=== PATIENT | female | born 1935 | race Caucasian/White ===

== ENCOUNTER 2018-12-04 15:15 | Inpatient (IN) | payer MEDICARE, OTHER, MEDICAID ==
[2018-12-04 16:12] LABS: CHLORIDE,CL 105 mEq/L (98-106); SODIUM,NA 139 mEq/L (136-145)
[2018-12-04] MEDS ORDERED: Sodium Chloride 0.9% 10 ML Syringe FLUSH PRN (18:49)
[2018-12-04] MEDS ORDERED: Acetaminophen 500 MG Tab PO PRN (18:49)
[2018-12-04] MEDS ORDERED: Ondansetron 4 MG Tab.DIS PO PRN (18:49)
--- NOTE | 2018-12-04 18:55 | EDM.PDOC ---
ED HPI GENERAL MEDICAL PROBLEM - General Chief Complaint: General Stated Complaint: fall on ice Time Seen by Provider: 12/04/18 15:35 Source of Information: Reports: Patient History Limitations: Reports: No Limitations. Denies: Altered Mental Status, Physical Impairment, Respiratory Distress, Uncooperative - History of Present Illness INITIAL COMMENTS - FREE TEXT/NARRATIVE: Josiane is an 83 yo female who is brought into the ED via [facility] after having a controlled fall with the assistance of her grandson. EMS was called secondary to not being able to get her up. She admits over the last couple of weeks she has been getting weaker. Her grandson was able to assist her to the ground without any new onset of pain or injury. She does complain of chronic back pain. She was scheduled this afternoon to come into the clinic for weakness and chronic back pain. She admits lately she hasn't been able to stand for more than 5 minutes. She admits she hasn't been exercising and her diet hasn 't been that great. She states she is always hungry and wants to eat. States after she eats she wants to eat again in 15 minutes. Lower Back Pain Score (Numeric/FACES): 7 - Related Data Allergies Allergy/AdvReac Type Severity Reaction Status Date / Time No Known Allergies Allergy Verified 12/04/18 15:42 Home Meds: Home Meds Aspirin [Adult Low Dose Aspirin EC] 81 mg PO DAILY 05/11/15 [History] Furosemide [Lasix] 40 mg PO DAILY 05/11/15 [History] Levothyroxine 125 mcg PO DAILY 05/11/15 [History] Quinapril [Accupril] 20 mg PO DAILY 05/11/15 [History] Sertraline [Zoloft] 50 mg PO BID 05/11/15 [History] Potassium Chloride 20 meq PO BID 12/12/16 [History] Acetaminophen [Acetaminophen Extra Strength] 500 mg PO BID PRN 12/04/18 [History ] Insuln Asp Prot/Insulin Aspart [NovoLOG Mix 70-30] 15 units SUBCUT WITHDINNER [History] Insuln Asp Prot/Insulin Aspart [NovoLOG Mix 70-30] 20 units SUBCUT QAM 12/04/18 [History] Magnesium Oxide [Magnesium] 500 mg PO BID 12/04/18 [History] Metoprolol Succinate 50 mg PO DAILY 12/04/18 [History] Nystatin 1 applic TOP BID 12/04/18 [History] Past Medical History Cardiovascular History: Reports: Heart Murmur, Hypertension, Other (See Below) Other Cardiovascular History: A FLUTTER Gastrointestinal History: Reports: GERD, Hemorrhoids, PUD Endocrine/Metabolic History: Reports: Diabetes, Type II, Hypoparathyroidism - Past Surgical History HEENT Surgical History: Reports: Cataract Surgery GI Surgical History: Reports: Appendectomy, Bariatric Procedure, Hernia Repair/ Other Musculoskeletal Surgical History: Reports: Hip Replacement, Knee Replacement Social & Family History - Family History Family Medical History: Noncontributory - Tobacco Use Smoking Status *Q: Never Smoker - Caffeine Use Caffeine Use: Reports: Coffee - Recreational Drug Use Recreational Drug Use: No ED ROS GENERAL - Review of Systems Review Of Systems: See Below Constitutional: Reports: Weakness. Denies: Fever, Chills, Decreased Appetite HEENT: Reports: No Symptoms Respiratory: Reports: No Symptoms Cardiovascular: Reports: No Symptoms Endocrine: Reports: No Symptoms GI/Abdominal: Reports: No Symptoms : Reports: No Symptoms Neurological: Reports: Difficulty Walking, Weakness Psychiatric: Reports: No Symptoms ED EXAM, GENERAL - Physical Exam Exam: See Below Exam Limited By: No Limitations General Appearance: Alert, WD/WN, No Apparent Distress Eye Exam: Bilateral Eye: EOMI, Normal Fundi, Normal Inspection Ears: Normal External Exam, Normal Canal, Hearing Grossly Normal, Normal TMs Nose: Normal Inspection, Normal Mucosa, No Blood Throat/Mouth: Normal Inspection, Normal Lips, Normal Teeth, Normal Gums, Normal Oropharynx, Normal Voice, No Airway Compromise Head: Atraumatic, Normocephalic Neck: Normal Inspection, Supple Respiratory/Chest: No Respiratory Distress, Lungs Clear, Normal Breath Sounds, No Accessory Muscle Use Cardiovascular: Normal Peripheral Pulses, Regular Rate, Rhythm, No Edema, No Murmur GI/Abdominal: Normal Bowel Sounds, Soft, Non-Tender, No Mass, Other (morbid obesity) Extremities: Normal Inspection, Normal Range of Motion Neurological: Alert, Oriented, Normal Cognition, No Motor/Sensory Deficits Psychiatric: Normal Affect, Normal Mood Skin Exam: Warm, Dry, Intact, Normal Color, No Rash Course - Vital Signs Last Recorded V/S: Last Vital Signs Temp 97.7 F 12/04/18 17:20 Pulse 76 12/04/18 17:20 Resp 20 12/04/18 17:20 BP 139/62 12/04/18 17:20 Pulse Ox 99 12/04/18 17:20 - Orders/Labs/Meds Orders: Active Orders 24 hr Category Date Time Status Chest 2V [CR] Stat Exams 12/04/18 15:43 Taken EKG 12 Lead [EK] Routine Ther 12/04/18 15:43 Ordered Labs: Laboratory Tests 12/04/18 12/04/18 12/04/18 Range/Units 15:50 15:50 16:11 WBC 6.8 (5.0-10.0) 10^3/uL RBC 4.64 (4.00-5.50) 10^6/uL Hgb 15.0 (12.0-16.0) g/dL Hct 45.5 (37.0-47.0) % MCV 98.1 H (82.0-94.0) fL MCH 32.3 H (27.0-32.0) pg MCHC 33.0 (33.0-38.0) g/dL RDW Coeff of [place] 13.3 (11.0-15.0) % Plt Count 134 L (150-400) 10^3/uL Neut % (Auto) 61.9 (35-85) % Lymph % (Auto) 23.6 (10-55) % [place] % (Auto) 10.9 (0-16) % Eos % (Auto) 2.9 (0-5) % Baso % (Auto) 0.7 (0-3) % Neut # (Auto) 4.19 (1.80-7.00) 10^3/uL Lymph # (Auto) 1.60 (1.00-4.80) 10^3/uL [place] # (Auto) 0.74 (0.00-0.80) 10^3/uL Eos # (Auto) 0.20 (0.00-0.45) 10^3/uL Baso # (Auto) 0.05 10^3/uL Sodium 139 (136-145) mEq/L Potassium 4.4 (3.5-5.0) mEq/L Chloride 105 (98-106) mEq/L Carbon Dioxide 27 (21-32) mmol/L BUN 29 H (7-18) mg/dL Creatinine 1.7 H (0.6-1.0) mg/dL Est Cr Clr Drug Dosing 23.06 mL/min Estimated GFR (MDRD) 29 L (>=60) mL/min Glucose 111 H (75-99) mg/dL Calcium 9.3 (8.4-10.1) mg/dL Total Bilirubin 0.6 (0.0-1.0) mg/dL AST 19 (15-37) U/L ALT 19 (12-78) U/L Alkaline Phosphatase 112 (46-116) U/L Creatine Kinase 45 (21-215) U/L Troponin I < 0.017 (0.00-0.06) ng/mL C-Reactive Protein 1.1 H (0.2-0.8) mg/dL Total Protein 7.1 (6.4-8.2) g/dL Albumin 3.1 L (3.4-5.0) g/dL Urine Color Straw (YELLOW) Urine Appearance Slightly cloudy (CLEAR) Urine pH 5.0 (4.5-8.0) Ur Specific [place] 1.015 (1.003-1.020) Urine Protein Negative (NEGATIVE) mg/dL Urine Glucose (UA) Negative (NEGATIVE) mg/dL Urine Ketones Negative (NEGATIVE) mg/dL Urine Occult Blood Negative (NEGATIVE) Urine Nitrite Negative (NEGATIVE) Urine Bilirubin Negative (NEGATIVE) Urine Urobilinogen 0.2 (0.2-1.0) EU/dL Ur Leukocyte Esterase Negative (NEGATIVE) Urine RBC Not seen (0-5) /HPF Urine WBC Not seen (0-5) /HPF Ur Epithelial Cells Few H (NOT SEEN) /HPF Hyaline Casts Few H (NOT SEEN) /LPF Departure - Departure Time of Disposition: 18:49 Disposition: Refer to Observation Clinical Impression: Weakness generalized, Physical deconditioning - Discharge Information - Problem List & Annotations (1) Physical deconditioning SNOMED Code(s): 07324245070784 Code(s): R53.81 - OTHER MALAISE Status: Acute Current Visit: Yes (2) Weakness generalized SNOMED Code(s): 58470269 Code(s): R53.1 - WEAKNESS Status: Acute Current Visit: Yes - My Orders Last 24 Hours: My Active Orders 12/04/18 15:43 Chest 2V [CR] Stat EKG 12 Lead [EK] Routine - Assessment/Plan Admission H&P: Please use this note as an admission H&P Last 24 Hours: My Active Orders 12/04/18 15:43 Chest 2V [CR] Stat EKG 12 Lead [EK] Routine Plan: D/t recurrent falls in the last few weeks, will admit to observation under Dr. Martinez's care. Will have PT and career consultant work with Josiane while in ED. She verbalized understanding. Dr. Martinez consulted and agreed with admission.
[2018-12-04] MEDS: Insulin NPH/Insulin Regular,Human 70-30 100 Units/ML 10 ML Vial SUBCUT SCH (19:21)
[2018-12-04] MEDS: Enoxaparin 30 MG/0.3 ML Syringe SUBCUT SCH (19:43)
[2018-12-05] MEDS ORDERED: Aspirin 81 MG Tab.EC PO SCH (08:00)
[2018-12-05] MEDS: Insulin NPH/Insulin Regular,Human 70-30 100 Units/ML 10 ML Vial SUBCUT SCH ×2 (08:23→18:12)
[2018-12-05] MEDS ORDERED: QUINAPRIL 20 MG PO SCH (09:30)
[2018-12-05] MEDS: SERTRALINE 100 MG PO SCH ×4 (10:31→19:23)
[2018-12-05] MEDS: POTASSIUM CHLORIDE 20 MEQ PO SCH ×3 (10:32→19:23)
[2018-12-05] MEDS: Nystatin Topical Powder 15 GM Bottle TOP SCH ×3 (10:32→19:24)
[2018-12-05] MEDS: Levothyroxine 125 MCG Tab PO SCH (11:31)
[2018-12-05] MEDS: Furosemide 40 MG Tab PO SCH (11:31)
[2018-12-05] MEDS: METOPROLOL SUCCINATE 50 MG PO SCH (11:32)
--- NOTE | 2018-12-05 12:41 | PCM.PN ---
- General Info Date of Service: 12/05/18 Admission Dx/Problem (Free Text): Weakness with recent fall Functional Status: Reports: Pain Controlled, Tolerating Diet, Ambulating ( ambulating with walker but unsteady) - Review of Systems General: Reports: Weakness, Fatigue HEENT: Reports: No Symptoms Pulmonary: Reports: Shortness of Breath. Denies: Cough Cardiovascular: Denies: Chest Pain, Lightheadedness Gastrointestinal: Denies: Abdominal Pain, Nausea, Vomiting Genitourinary: Reports: No Symptoms Musculoskeletal: Reports: Leg Pain, Joint Pain Skin: Reports: No Symptoms Neurological: Reports: Weakness - Patient Data Vitals - Most Recent: Last Vital Signs Temp 99.1 F 12/05/18 11:33 Pulse 74 12/05/18 11:33 Resp 20 12/05/18 11:33 BP 132/73 12/05/18 11:33 Pulse Ox 98 12/05/18 11:33 Weight - Most Recent: 289 lb 4.8 oz Lab Results Last 24 Hours: Laboratory Results - last 24 hr 12/04/18 12/04/18 12/04/18 Range/Units 15:50 15:50 16:11 WBC 6.8 (5.0-10.0) 10^3/uL RBC 4.64 (4.00-5.50) 10^6/uL Hgb 15.0 (12.0-16.0) g/dL Hct 45.5 (37.0-47.0) % MCV 98.1 H (82.0-94.0) fL MCH 32.3 H (27.0-32.0) pg MCHC 33.0 (33.0-38.0) g/dL RDW Coeff of Ronan 13.3 (11.0-15.0) % Plt Count 134 L (150-400) 10^3/uL Neut % (Auto) 61.9 (35-85) % Lymph % (Auto) 23.6 (10-55) % [place] % (Auto) 10.9 (0-16) % Eos % (Auto) 2.9 (0-5) % Baso % (Auto) 0.7 (0-3) % Neut # (Auto) 4.19 (1.80-7.00) 10^3/uL Lymph # (Auto) 1.60 (1.00-4.80) 10^3/uL [place] # (Auto) 0.74 (0.00-0.80) 10^3/uL Eos # (Auto) 0.20 (0.00-0.45) 10^3/uL Baso # (Auto) 0.05 10^3/uL Sodium 139 (136-145) mEq/L Potassium 4.4 (3.5-5.0) mEq/L Chloride 105 (98-106) mEq/L Carbon Dioxide 27 (21-32) mmol/L BUN 29 H (7-18) mg/dL Creatinine 1.7 H (0.6-1.0) mg/dL Est Cr Clr Drug Dosing 23.06 mL/min Estimated GFR (MDRD) 29 L (>=60) mL/min Glucose 111 H (75-99) mg/dL POC Glucose (75-105) mg/dl Calcium 9.3 (8.4-10.1) mg/dL Total Bilirubin 0.6 (0.0-1.0) mg/dL AST 19 (15-37) U/L ALT 19 (12-78) U/L Alkaline Phosphatase 112 (46-116) U/L Creatine Kinase 45 (21-215) U/L Troponin I < 0.017 (0.00-0.06) ng/mL C-Reactive Protein 1.1 H (0.2-0.8) mg/dL Total Protein 7.1 (6.4-8.2) g/dL Albumin 3.1 L (3.4-5.0) g/dL Urine Color Straw (YELLOW) Urine Appearance Slightly cloudy (CLEAR) Urine pH 5.0 (4.5-8.0) Ur Specific [place] 1.015 (1.003-1.020) Urine Protein Negative (NEGATIVE) mg/dL Urine Glucose (UA) Negative (NEGATIVE) mg/dL Urine Ketones Negative (NEGATIVE) mg/dL Urine Occult Blood Negative (NEGATIVE) Urine Nitrite Negative (NEGATIVE) Urine Bilirubin Negative (NEGATIVE) Urine Urobilinogen 0.2 (0.2-1.0) EU/dL Ur Leukocyte Esterase Negative (NEGATIVE) Urine RBC Not seen (0-5) /HPF Urine WBC Not seen (0-5) /HPF Ur Epithelial Cells Few H (NOT SEEN) /HPF Hyaline Casts Few H (NOT SEEN) /LPF 12/04/18 12/04/18 12/05/18 Range/Units 17:29 20:17 07:58 WBC (5.0-10.0) 10^3/uL RBC (4.00-5.50) 10^6/uL Hgb (12.0-16.0) g/dL Hct (37.0-47.0) % MCV (82.0-94.0) fL MCH (27.0-32.0) pg MCHC (33.0-38.0) g/dL RDW Coeff of [place]an (11.0-15.0) % Plt Count (150-400) 10^3/uL Neut % (Auto) (35-85) % Lymph % (Auto) (10-55) % [place] % (Auto) (0-16) % Eos % (Auto) (0-5) % Baso % (Auto) (0-3) % Neut # (Auto) (1.80-7.00) 10^3/uL Lymph # (Auto) (1.00-4.80) 10^3/uL [place] # (Auto) (0.00-0.80) 10^3/uL Eos # (Auto) (0.00-0.45) 10^3/uL Baso # (Auto) 10^3/uL Sodium (136-145) mEq/L Potassium (3.5-5.0) mEq/L Chloride (98-106) mEq/L Carbon Dioxide (21-32) mmol/L BUN (7-18) mg/dL Creatinine (0.6-1.0) mg/dL Est Cr Clr Drug Dosing mL/min Estimated GFR (MDRD) (>=60) mL/min Glucose (75-99) mg/dL POC Glucose 99 160 H 88 (75-105) mg/dl Calcium (8.4-10.1) mg/dL Total Bilirubin (0.0-1.0) mg/dL AST (15-37) U/L ALT (12-78) U/L Alkaline Phosphatase (46-116) U/L Creatine Kinase (21-215) U/L Troponin I (0.00-0.06) ng/mL C-Reactive Protein (0.2-0.8) mg/dL Total Protein (6.4-8.2) g/dL Albumin (3.4-5.0) g/dL Urine Color (YELLOW) Urine Appearance (CLEAR) Urine pH (4.5-8.0) Ur Specific [place] (1.003-1.020) Urine Protein (NEGATIVE) mg/dL Urine Glucose (UA) (NEGATIVE) mg/dL Urine Ketones (NEGATIVE) mg/dL Urine Occult Blood (NEGATIVE) Urine Nitrite (NEGATIVE) Urine Bilirubin (NEGATIVE) Urine Urobilinogen (0.2-1.0) EU/dL Ur Leukocyte Esterase (NEGATIVE) Urine RBC (0-5) /HPF Urine WBC (0-5) /HPF Ur Epithelial Cells (NOT SEEN) /HPF Hyaline Casts (NOT SEEN) /LPF Med Orders - Current: Current Medications Acetaminophen (Tylenol Extra Strength) 500 mg PO BID PRN PRN Reason: Pain/Fever Aspirin (Halfprin) 81 mg PO BEDTIME [facility] Enoxaparin Sodium (Lovenox) 30 mg SUBCUT Q24H [facility] Last Admin: 12/04/18 19:43 Dose: 30 mg Furosemide (Lasix) 40 mg PO DAILY [facility] Last Admin: 12/05/18 11:31 Dose: 40 mg Insulin Human Isoph/Insulin Regular (Humulin 70-30) 15 units SUBCUT WITHDINNER [facility] Last Admin: 12/04/18 19:21 Dose: 15 units Insulin Human Isoph/Insulin Regular (Humulin 70-30) 20 units SUBCUT QAM [facility] Last Admin: 12/05/18 08:23 Dose: 20 units Levothyroxine Sodium (Levothyroxine) 125 mcg PO DAILY [facility] Last Admin: 12/05/18 11:31 Dose: 125 mcg Magnesium Oxide (Magnesium Oxide) 500 mg PO BID [facility] Last Admin: 12/05/18 08:29 Dose: 500 mg Ptom Metoprolol Succinate [ Metoprolol Succinate ] 50 Mg 50 mg PO DAILY [facility] Last Admin: 12/05/18 11:32 Dose: 50 mg Ptom Potassium Chloride [Potassium Chloride] 20 Meq 20 meq PO BID [facility] Last Admin: 12/05/18 11:31 Dose: 20 meq Ptom Sertraline ([Zoloft] 100 Mg Tab) 50 mg PO BID [facility] Last Admin: 12/05/18 11:32 Dose: 50 mg Ptom Quinapril [ (Accupril] 20 Mg Tab) 20 mg PO BEDTIME [facility] Nystatin (Nystop) 0 gm TOP BID [facility] Last Admin: 12/05/18 10:40 Dose: 1 applic Ondansetron HCl (Zofran Odt) 4 mg PO Q4H PRN PRN Reason: nausea, able to take PO Sodium Chloride (Saline Flush) 10 ml FLUSH ASDIRECTED PRN PRN Reason: Keep Vein Open Discontinued Medications Aspirin (Halfprin) 81 mg PO DAILY [facility] Last Admin: 12/05/18 08:29 Dose: 81 mg Ptom Quinapril [ (Accupril] 20 Mg Tab) 20 mg PO DAILY [facility] Last Admin: 12/05/18 11:33 Dose: 20 mg - Exam General: Alert, Oriented HEENT: Mucous Membr. Moist/[place] Neck: Supple Lungs: Clear to Auscultation, Normal Respiratory Effort Cardiovascular: Regular Rate, Regular Rhythm GI/Abdominal Exam: Normal Bowel Sounds, Soft, Non-Tender Extremities: Normal Inspection, No Pedal Edema Skin: Warm, Dry Neurological: No New Focal Deficit - Problem List & Annotations (1) Weakness generalized SNOMED Code(s): 18702456 Code(s): R53.1 - WEAKNESS Status: Acute Priority: High Current Visit: Yes - Problem List Review Problem List Initiated/Reviewed/Updated: Yes - Assessment Assessment:: Weakness with recent falls - Plan Plan:: Patient still feeling weak and unsteady at times. Is only ambulating short distances with walker and standby assist. Complains of left knee pain with walking. Denies any shortness of breath, chest pain, abdominal pain. Labs on admit all normal. PT did evaluate this am and does not feel patient is stable enough with ambulation to go home safely. Will continue with physical therapy, possibly discharge home tomorrow.
[2018-12-05] MEDS: Enoxaparin 30 MG/0.3 ML Syringe SUBCUT SCH (19:20)
[2018-12-06] MEDS: Nystatin Topical Powder 15 GM Bottle TOP SCH ×2 (08:00→19:30)
--- NOTE | 2018-12-06 08:08 | PN ---
DATE: 12/06/2018 S: Josiane is an 83-year-old female who was initially admitted on 12/04/2018, secondary to a fall and generalized weakness. She has had difficulty ambulating secondary to weakness. She did have a controlled fall. However, due to unable to get up, they did end up calling ambulance, which prompted her to be brought into the emergency room. She states that she is feeling a little bit stronger today. She has been trying to ambulate with assistance. She has been working with Physical Therapy. However, Physical Therapy yesterday did not feel that she was ready to go home at this time, as they did not feel she was stable enough with ambulation at home. She denies any new onset of any symptoms. She states that she has not had any concerns per se. O: VITAL SIGNS: Blood pressure is 121/64, O2 is 96% on room air, respiratory rate of 20, and temp 96. GENERAL: A pleasant cooperative female, does not really appear to be in any acute distress and not acutely ill. She is just sitting comfortably in a recliner. HEENT: Grossly unremarkable. LUNGS: Does have a little bit of expiratory wheeze; however, chest x- ray completed on 12/04/2018, did show no acute cardiopulmonary processes. Otherwise, respirations are nonlabored. No respiratory distress noted. CARDIAC: Regular rate and regular rhythm. No murmurs are noted. ABDOMEN: Soft. Bowel sounds present and normoactive. No organomegaly. No guarding or rigidity. ASSESSMENT: 1. GENERALIZED WEAKNESS. 2. VULNERABLE ADULT, SECONDARY TO FALL. P: I did discuss with Josiane, due to inclement weather, we are unable to discharge her at this point in time. Physical Therapy will not be in today, due to the weather, to work with her. We will keep her one more night, hopefully, with a discharge plan for tomorrow, of which Josiane does verbalize understanding. We are going to have nursing staff assist her with ambulation today. Josiane was in complete agreement. JARROD/CHARISMA /[id number] BRETT
[2018-12-06] MEDS: Insulin NPH/Insulin Regular,Human 70-30 100 Units/ML 10 ML Vial SUBCUT SCH ×2 (08:24→18:26)
[2018-12-06] MEDS: Levothyroxine 125 MCG Tab PO SCH (08:26)
[2018-12-06] MEDS: Furosemide 40 MG Tab PO SCH (08:26)
[2018-12-06] MEDS: POTASSIUM CHLORIDE 20 MEQ PO SCH ×2 (08:29→19:30)
[2018-12-06] MEDS: SERTRALINE 100 MG PO SCH ×2 (08:29→19:31)
[2018-12-06] MEDS: METOPROLOL SUCCINATE 50 MG PO SCH (08:29)
[2018-12-06] MEDS: Enoxaparin 30 MG/0.3 ML Syringe SUBCUT SCH (19:28)
[2018-12-06] MEDS ORDERED: Aspirin 81 MG Tab.EC PO SCH (20:00)
[2018-12-06] MEDS ORDERED: QUINAPRIL 20 MG PO SCH (20:00)
[2018-12-07] MEDS: Furosemide 40 MG Tab PO SCH (08:45)
[2018-12-07] MEDS ORDERED: Sertraline 25 MG Tab PO SCH (08:45)
[2018-12-07] MEDS ORDERED: Potassium Chloride 10 MEQ Tab.ER PO SCH (08:45)
[2018-12-07] MEDS ORDERED: Metoprolol Succinate 25 MG Tab.ER PO SCH (08:45)
[2018-12-07] MEDS: Levothyroxine 125 MCG Tab PO SCH (08:46)
[2018-12-07] MEDS: Insulin NPH/Insulin Regular,Human 70-30 100 Units/ML 10 ML Vial SUBCUT SCH (08:46)
[2018-12-07] MEDS: Nystatin Topical Powder 15 GM Bottle TOP SCH (08:52)
[2018-12-07] MEDS: POTASSIUM CHLORIDE 20 MEQ PO SCH (11:19)
[2018-12-07] MEDS: METOPROLOL SUCCINATE 50 MG PO SCH (11:19)
[2018-12-07] MEDS: SERTRALINE 100 MG PO SCH (11:19)
[2018-12-07 14:05] VITALS: BP 130/63
[2018-12-07] MEDS ORDERED: Lisinopril 10 MG Tab PO SCH (20:00)
--- NOTE | 2018-12-07 21:41 | PCM.DCSUM1 ---
Discharge Summary - Hospital Course Free Text/Narrative:: Patient presented to ER with complaints of increased weakness and a fall. Had been leaving her apartment to go to the clinic for a scheduled appointment due to increased weakness and back pain. Had a controlled fall outside her apartment, was assisted down by her grandson but then was unable to get her up so EMS was called. She states she had increasing weakness over the last few weeks. Had many near falls, was able to either catch herself with her walker or lower herself to a chair. Labs in the ER essentially all stable. Admitted for physical therapy due to concerns of ability to care for herself at home in current state. Diagnosis: Stroke: No Modified [place] Scale: No Symptoms at All Modified [place] Scale Score: 0 - Discharge Data Discharge Date: 12/07/18 Discharge Disposition: Home, Self-Care 01 Condition: Fair - Discharge Diagnosis/Problem(s) (1) Weakness generalized SNOMED Code(s): 73380642 ICD Code: R53.1 - WEAKNESS Status: Acute Priority: High - Patient Summary/Data Complications: none Consults: Consultations 12/04/18 18:49 Consult to [employer] [CONS] Routine PT Evaluation and Treatment [CONS] Routine Hospital Course: Patient showing improvement. Has been ambulating with staff and physical therapy, using walker. Labs all stable. Blood sugars stable, running 100-170. Vital signs stable. Patient does feel her strength has improved and can manage at home with grandson's assistance. - Patient Instructions Diet: Diabetic Diet Activity: As Tolerated - Discharge Plan *PRESCRIPTION DRUG MONITORING PROGRAM REVIEWED*: No *COPY OF PRESCRIPTION DRUG MONITORING REPORT IN PATIENT GAGE: No Home Medications: Home Meds Aspirin [Adult Low Dose Aspirin EC] 81 mg PO DAILY 05/11/15 [History] Furosemide [Lasix] 40 mg PO DAILY 05/11/15 [History] Levothyroxine 125 mcg PO DAILY 05/11/15 [History] Quinapril [Accupril] 20 mg PO DAILY 05/11/15 [History] Sertraline [Zoloft] 50 mg PO BID 05/11/15 [History] Potassium Chloride 20 meq PO BID 12/12/16 [History] Acetaminophen [Acetaminophen Extra Strength] 500 mg PO BID PRN 12/04/18 [History ] Insuln Asp Prot/Insulin Aspart [NovoLOG Mix 70-30] 15 units SUBCUT WITHDINNER [History] Insuln Asp Prot/Insulin Aspart [NovoLOG Mix 70-30] 20 units SUBCUT QAM 12/04/18 [History] Magnesium Oxide [Magnesium] 500 mg PO BID 12/04/18 [History] Metoprolol Succinate 50 mg PO DAILY 12/04/18 [History] Nystatin 1 applic TOP BID 12/04/18 [History] Patient Handouts: Weakness Forms: ED Department Discharge Referrals: Jose Caceres PA-C [Emergency Provider] - (Follow up with Femi Caceres in one week ) - Discharge Summary/Plan Comment DC Time >30 min.: No - General Info Date of Service: 12/07/18 Admission Dx/Problem (Free Text: Weakness with recent fall Functional Status: Reports: Pain Controlled, Tolerating Diet, Ambulating - Review of Systems General: Reports: Weakness HEENT: Reports: No Symptoms Pulmonary: Denies: Shortness of Breath, Cough Cardiovascular: Denies: Chest Pain, Edema, Lightheadedness Gastrointestinal: Denies: Abdominal Pain, Nausea, Vomiting Genitourinary: Reports: No Symptoms Musculoskeletal: Reports: No Symptoms Skin: Reports: No Symptoms Neurological: Reports: No Symptoms - Patient Data Vitals - Most Recent: Last Vital Signs Temp 99.2 F 12/07/18 12:00 Pulse 78 12/07/18 12:00 Resp 16 12/07/18 12:00 BP 130/63 12/07/18 12:00 Pulse Ox 99 12/07/18 12:00 Weight - Most Recent: 289 lb 4.8 oz Lab Results - Last 24 hrs: Laboratory Results - last 24 hr 12/07/18 12/07/18 Range/Units 07:59 11:48 POC Glucose 134 H 107 H (75-105) mg/dl Med Orders - Current: Current Medications Discontinued Medications Acetaminophen (Tylenol Extra Strength) 500 mg PO BID PRN PRN Reason: Pain/Fever Aspirin (Halfprin) 81 mg PO DAILY [facility] Last Admin: 12/05/18 08:29 Dose: 81 mg Aspirin (Halfprin) 81 mg PO BEDTIME [facility] Last Admin: 12/06/18 19:28 Dose: 81 mg Enoxaparin Sodium (Lovenox) 30 mg SUBCUT Q24H [facility] Last Admin: 12/06/18 19:28 Dose: 30 mg Furosemide (Lasix) 40 mg PO DAILY [facility] Last Admin: 03/15/19 08:45 Dose: 40 mg Insulin Human Isoph/Insulin Regular (Humulin 70-30) 15 units SUBCUT WITHDINNER [facility] Last Admin: 12/06/18 18:26 Dose: 15 units Insulin Human Isoph/Insulin Regular (Humulin 70-30) 20 units SUBCUT QAM [facility] Last Admin: 12/07/18 08:46 Dose: 20 units Levothyroxine Sodium (Levothyroxine) 125 mcg PO DAILY [facility] Last Admin: 12/07/18 08:46 Dose: 125 mcg Lisinopril (Prinivil) 10 mg PO BEDTIME [facility] Magnesium Oxide (Magnesium Oxide) 500 mg PO BID [facility] Last Admin: 12/07/18 08:45 Dose: 500 mg Metoprolol Succinate (Toprol Xl) 50 mg PO DAILY [facility] Last Admin: 12/07/18 08:45 Dose: 50 mg Ptom Metoprolol Succinate [ Metoprolol Succinate ] 50 Mg 50 mg PO DAILY [facility] Last Admin: 12/07/18 11:19 Dose: Not Given Ptom Potassium Chloride [Potassium Chloride] 20 Meq 20 meq PO BID [facility] Last Admin: 12/07/18 11:19 Dose: Not Given Ptom Quinapril [ (Accupril] 20 Mg Tab) 20 mg PO DAILY [facility] Last Admin: 12/05/18 11:33 Dose: 20 mg Ptom Sertraline ([Zoloft] 100 Mg Tab) 50 mg PO BID [facility] Last Admin: 12/07/18 11:19 Dose: Not Given Ptom Quinapril [ (Accupril] 20 Mg Tab) 20 mg PO BEDTIME [facility] Last Admin: 12/06/18 19:31 Dose: 20 mg Nystatin (Nystop) 0 gm TOP BID [facility] Last Admin: 12/07/18 08:52 Dose: 1 applic Ondansetron HCl (Zofran Odt) 4 mg PO Q4H PRN PRN Reason: nausea, able to take PO Potassium Chloride (Klor-Con 10) 20 meq PO BID [facility] Last Admin: 12/07/18 08:45 Dose: 20 meq Sertraline HCl (Zoloft) 50 mg PO BID [facility] Last Admin: 12/07/18 08:44 Dose: 50 mg Sodium Chloride (Saline Flush) 10 ml FLUSH ASDIRECTED PRN PRN Reason: Keep Vein Open - Exam General: Reports: Alert, Oriented HEENT: Reports: Mucous Membr. Moist/[place] Neck: Reports: Supple Lungs: Reports: Clear to Auscultation, Normal Respiratory Effort Cardiovascular: Reports: Regular Rate, Regular Rhythm GI/Abdominal Exam: Normal Bowel Sounds, Soft, Non-Tender Extremities: Normal Inspection, No Pedal Edema Skin: Reports: Warm, Dry Neurological: Reports: No New Focal Deficit
== END 2018-12-07 14:00 | disposition home or self-care (01) | DRG 948 ==
LOC: CC.ED 15:15 → UNDOADMOB 17:03 → CC.MS 17:03 → OBSVTOIN 12-06 07:36
PROVIDERS: ADMIT Physician Assistant Medical; ATTEND Family Medicine
DX: R53.1 Weakness (principal); M54.9 Dorsalgia, unspecified; G89.29 Other chronic pain; I10 Essential (primary) hypertension; K21.9 Gastro-esophageal reflux disease without esophagitis; E11.9 Type 2 diabetes mellitus without complications; E20.9 Hypoparathyroidism, unspecified; Z96.659 Presence of unspecified artificial knee joint; R29.6 Repeated falls; Z96.649 Presence of unspecified artificial hip joint; W00.0XXA Fall on same level due to ice and snow, initial encounter; Z79.82 Long term (current) use of aspirin; Z87.11 Personal history of peptic ulcer disease; Z79.4 Long term (current) use of insulin; Z79.899 Other long term (current) drug therapy; Z90.49 Acquired absence of other specified parts of digestive tract; Z98.84 Bariatric surgery status; Z98.49 Cataract extraction status, unspecified eye
CPT/HCPCS: 36415; 71046; 80053; 81001; 82550; 82962; 84484; 85025; 86140; 93005; 96372; 97110-GP; 97161-GP; 99285-25; A9270-GY; G0378; J1650

== ENCOUNTER 2019-09-03 15:41 | Inpatient (IN) | payer MEDICARE, OTHER ==
[2019-09-03] MEDS ORDERED: Ibuprofen 200 MG Tab PO PRN (17:34)
[2019-09-03] MEDS ORDERED: Albuterol/Ipratropium 3.0-0.5 MG/3 ML Neb Soln NEB PRN (17:34)
[2019-09-03] MEDS ORDERED: Sodium Chloride 0.9% 10 ML Syringe FLUSH PRN (17:34)
[2019-09-03] MEDS ORDERED: Magnesium Sulfate (4.06 MEQ/ML) 1 GM/2 ML SDV IV ONE (18:22)
[2019-09-03] MEDS ORDERED: cefTRIAXone 1 GM Vial IVPUSH ONE (18:28)
[2019-09-03] MEDS: NS + KCl 20mEq/L 1,000 ML IV SCH (18:59)
[2019-09-03] MEDS: Sertraline 25 MG Tab PO SCH (20:25)
[2019-09-03] MEDS: Enoxaparin 30 MG/0.3 ML Syringe SUBCUT SCH (20:26)
[2019-09-03] MEDS: Dexamethasone/Tobramycin 0.1-0.3% Ophth Susp 2.5 ML Bottle EYERT SCH ×2 (20:33→20:34)
[2019-09-04] MEDS: Dexamethasone/Tobramycin 0.1-0.3% Ophth Susp 2.5 ML Bottle EYERT SCH ×8 (00:20→23:16)
[2019-09-04] MEDS: NS + KCl 20mEq/L 1,000 ML IV SCH ×2 (05:22→17:42)
[2019-09-04] MEDS: Levothyroxine 125 MCG Tab PO SCH (06:05)
[2019-09-04] MEDS: Metoprolol Succinate 25 MG Tab.ER PO SCH (07:52)
[2019-09-04] MEDS: Furosemide 80 MG Tab PO SCH (07:53)
[2019-09-04] MEDS: Aspirin 81 MG Tab.EC PO SCH (07:53)
[2019-09-04] MEDS: glipiZIDE 5 MG Tab.ER PO SCH (07:53)
[2019-09-04] MEDS: Sertraline 25 MG Tab PO SCH ×2 (07:54→19:29)
[2019-09-04] MEDS: Lisinopril 10 MG Tab PO SCH (07:54)
[2019-09-04] MEDS: Nystatin Topical Powder 15 GM Bottle TOP PRN (09:03)
[2019-09-04] MEDS ORDERED: Magnesium Sulfate/D5W 2 GM in Premix Bag 1 BAG IV ONE (09:26)
[2019-09-04] MEDS: Potassium Chloride 10 MEQ Tab.ER PO SCH (09:27)
[2019-09-04] MEDS: cefTRIAXone 1 GM Vial IVPUSH SCH (09:28)
--- NOTE | 2019-09-04 13:09 | PCM.PN ---
- General Info Date of Service: 09/04/19 Admission Dx/Problem (Free Text): Fever Weakness Functional Status: Reports: Pain Controlled, Tolerating Diet, Ambulating - Review of Systems General: Reports: Weakness, Malaise HEENT: Denies: Ear Pain, Sinus Congestion Pulmonary: Reports: Shortness of Breath (shortness of breath chronic, does feel "a bit worse than usual"), Cough, Sputum Cardiovascular: Denies: Chest Pain, Edema, Lightheadedness Gastrointestinal: Denies: Abdominal Pain, Nausea, Vomiting Genitourinary: Denies: Dysuria Musculoskeletal: Reports: No Symptoms Skin: Reports: No Symptoms Neurological: Reports: Weakness - Patient Data Vitals - Most Recent: Last Vital Signs Temp 98.4 F 09/04/19 12:00 Pulse 82 09/04/19 12:00 Resp 16 09/04/19 12:00 BP 149/80 H 09/04/19 12:00 Pulse Ox 98 09/04/19 12:00 Weight - Most Recent: 311 lb 3.2 oz I&O - Last 24 Hours: Intake & Output 09/03/19 09/04/19 09/04/19 22:59 06:59 14:59 Intake Total 1000 Balance 1000 Lab Results Last 24 Hours: Laboratory Results - last 24 hr 09/03/19 09/03/19 09/03/19 Range/Units 17:39 17:45 17:45 WBC 6.9 (5.0-10.0) 10^3/uL RBC 3.84 L (4.00-5.50) 10^6/uL Hgb 13.0 (12.0-16.0) g/dL Hct 38.5 (37.0-47.0) % MCV 100.3 H (82.0-94.0) fL MCH 33.9 H (27.0-32.0) pg MCHC 33.8 (33.0-38.0) g/dL RDW Coeff of [place] 13.6 (11.0-15.0) % Plt Count 130 L (150-400) 10^3/uL Neut % (Auto) 64.1 (35-85) % Lymph % (Auto) 20.9 (10-55) % [place] % (Auto) 10.0 (0-16) % Eos % (Auto) 3.8 (0-5) % Baso % (Auto) 1.2 (0-3) % Neut # (Auto) 4.42 (1.80-7.00) 10^3/uL Lymph # (Auto) 1.44 (1.00-4.80) 10^3/uL [place] # (Auto) 0.69 (0.00-0.80) 10^3/uL Eos # (Auto) 0.26 (0.00-0.45) 10^3/uL Baso # (Auto) 0.08 10^3/uL Sodium 148 H (136-145) mEq/L Potassium 3.2 L (3.5-5.0) mEq/L Chloride 107 H (98-106) mEq/L Carbon Dioxide 33 H (21-32) mmol/L BUN 13 (7-18) mg/dL Creatinine 1.2 H (0.6-1.0) mg/dL Est Cr Clr Drug Dosing 31.40 mL/min Estimated GFR (MDRD) 43 L (>=60) mL/min Glucose 148 H (75-99) mg/dL POC Glucose (75-105) mg/dl Lactic Acid (0.4-2.0) mmol/L Calcium 8.8 (8.4-10.1) mg/dL Magnesium 1.6 L (1.8-2.4) mg/dL Total Bilirubin 0.4 (0.0-1.0) mg/dL AST 24 (15-37) U/L ALT 13 (12-78) U/L Alkaline Phosphatase 105 (46-116) U/L C-Reactive Protein 4.7 H (0.2-0.8) mg/dL Total Protein 7.2 (6.4-8.2) g/dL Albumin 3.2 L (3.4-5.0) g/dL Urine Color Yellow (YELLOW) Urine Appearance Clear (CLEAR) Urine pH 6.0 (4.5-8.0) Ur Specific [place] 1.020 (1.003-1.020) Urine Protein 30 H (NEGATIVE) mg/dL Urine Glucose (UA) Negative (NEGATIVE) mg/dL Urine Ketones Negative (NEGATIVE) mg/dL Urine Occult Blood Moderate H (NEGATIVE) Urine Nitrite Negative (NEGATIVE) Urine Bilirubin Negative (NEGATIVE) Urine Urobilinogen 0.2 (0.2-1.0) EU/dL Ur Leukocyte Esterase Trace H (NEGATIVE) Urine RBC 5-10 H (0-5) /HPF Urine WBC 5-10 H (0-5) /HPF Ur Epithelial Cells Moderate H (NOT SEEN) /HPF Urine Bacteria Few H (NOT SEEN) /HPF 09/03/19 09/04/19 09/04/19 Range/Units 17:45 07:32 08:23 WBC 6.9 (5.0-10.0) 10^3/uL RBC 3.89 L (4.00-5.50) 10^6/uL Hgb 12.8 (12.0-16.0) g/dL Hct 39.9 (37.0-47.0) % MCV 102.6 H (82.0-94.0) fL MCH 32.9 H (27.0-32.0) pg MCHC 32.1 L (33.0-38.0) g/dL RDW Coeff of [place] 13.4 (11.0-15.0) % Plt Count 135 L (150-400) 10^3/uL Neut % (Auto) 61.6 (35-85) % Lymph % (Auto) 23.0 (10-55) % [place] % (Auto) 10.0 (0-16) % Eos % (Auto) 4.5 (0-5) % Baso % (Auto) 0.9 (0-3) % Neut # (Auto) 4.23 (1.80-7.00) 10^3/uL Lymph # (Auto) 1.58 (1.00-4.80) 10^3/uL [place] # (Auto) 0.69 (0.00-0.80) 10^3/uL Eos # (Auto) 0.31 (0.00-0.45) 10^3/uL Baso # (Auto) 0.06 10^3/uL Sodium (136-145) mEq/L Potassium (3.5-5.0) mEq/L Chloride (98-106) mEq/L Carbon Dioxide (21-32) mmol/L BUN (7-18) mg/dL Creatinine (0.6-1.0) mg/dL Est Cr Clr Drug Dosing mL/min Estimated GFR (MDRD) (>=60) mL/min Glucose (75-99) mg/dL POC Glucose 104 (75-105) mg/dl Lactic Acid 2.0 (0.4-2.0) mmol/L Calcium (8.4-10.1) mg/dL Magnesium (1.8-2.4) mg/dL Total Bilirubin (0.0-1.0) mg/dL AST (15-37) U/L ALT (12-78) U/L Alkaline Phosphatase (46-116) U/L C-Reactive Protein (0.2-0.8) mg/dL Total Protein (6.4-8.2) g/dL Albumin (3.4-5.0) g/dL Urine Color (YELLOW) Urine Appearance (CLEAR) Urine pH (4.5-8.0) Ur Specific [place] (1.003-1.020) Urine Protein (NEGATIVE) mg/dL Urine Glucose (UA) (NEGATIVE) mg/dL Urine Ketones (NEGATIVE) mg/dL Urine Occult Blood (NEGATIVE) Urine Nitrite (NEGATIVE) Urine Bilirubin (NEGATIVE) Urine Urobilinogen (0.2-1.0) EU/dL Ur Leukocyte Esterase (NEGATIVE) Urine RBC (0-5) /HPF Urine WBC (0-5) /HPF Ur Epithelial Cells (NOT SEEN) /HPF Urine Bacteria (NOT SEEN) /HPF 09/04/19 Range/Units 08:23 WBC (5.0-10.0) 10^3/uL RBC (4.00-5.50) 10^6/uL Hgb (12.0-16.0) g/dL Hct (37.0-47.0) % MCV (82.0-94.0) fL MCH (27.0-32.0) pg MCHC (33.0-38.0) g/dL RDW Coeff of [place] (11.0-15.0) % Plt Count (150-400) 10^3/uL Neut % (Auto) (35-85) % Lymph % (Auto) (10-55) % [place] % (Auto) (0-16) % Eos % (Auto) (0-5) % Baso % (Auto) (0-3) % Neut # (Auto) (1.80-7.00) 10^3/uL Lymph # (Auto) (1.00-4.80) 10^3/uL [place] # (Auto) (0.00-0.80) 10^3/uL Eos # (Auto) (0.00-0.45) 10^3/uL Baso # (Auto) 10^3/uL Sodium 145 (136-145) mEq/L Potassium 3.4 L (3.5-5.0) mEq/L Chloride 106 (98-106) mEq/L Carbon Dioxide 30 (21-32) mmol/L BUN 14 (7-18) mg/dL Creatinine 1.2 H (0.6-1.0) mg/dL Est Cr Clr Drug Dosing 31.40 mL/min Estimated GFR (MDRD) 43 L (>=60) mL/min Glucose 124 H (75-99) mg/dL POC Glucose (75-105) mg/dl Lactic Acid (0.4-2.0) mmol/L Calcium 8.6 (8.4-10.1) mg/dL Magnesium 1.7 L (1.8-2.4) mg/dL Total Bilirubin (0.0-1.0) mg/dL AST (15-37) U/L ALT (12-78) U/L Alkaline Phosphatase (46-116) U/L C-Reactive Protein 4.2 H (0.2-0.8) mg/dL Total Protein (6.4-8.2) g/dL Albumin (3.4-5.0) g/dL Urine Color (YELLOW) Urine Appearance (CLEAR) Urine pH (4.5-8.0) Ur Specific [place] (1.003-1.020) Urine Protein (NEGATIVE) mg/dL Urine Glucose (UA) (NEGATIVE) mg/dL Urine Ketones (NEGATIVE) mg/dL Urine Occult Blood (NEGATIVE) Urine Nitrite (NEGATIVE) Urine Bilirubin (NEGATIVE) Urine Urobilinogen (0.2-1.0) EU/dL Ur Leukocyte Esterase (NEGATIVE) Urine RBC (0-5) /HPF Urine WBC (0-5) /HPF Ur Epithelial Cells (NOT SEEN) /HPF Urine Bacteria (NOT SEEN) /HPF Robert Results Last 24 Hours: Microbiology 09/03/19 17:45 Anaerobic Blood Culture - Final Blood Med Orders - Current: Current Medications Acetaminophen (Tylenol) 650 mg PO Q4H PRN PRN Reason: Pain (Mild 1-3)/fever Albuterol/Ipratropium (Duoneb 3.0-0.5 Mg/3 Ml) 3 ml NEB Q4H PRN PRN Reason: Shortness Of Breath/wheezing Aspirin (Halfprin) 81 mg PO DAILY [facility] Last Admin: 09/04/19 07:53 Dose: 81 mg Ceftriaxone Sodium (Rocephin) 1 gm IVPUSH Q24H [facility] Last Admin: 09/04/19 09:28 Dose: 1 gm Enoxaparin Sodium (Lovenox) 30 mg SUBCUT Q24H [facility] Last Admin: 09/03/19 20:26 Dose: 30 mg Furosemide (Lasix) 40 mg PO DAILY [facility] Last Admin: 09/04/19 07:53 Dose: 40 mg Glipizide (Glucotrol Xl) 5 mg PO DAILY [facility] Last Admin: 09/04/19 07:53 Dose: 5 mg Potassium Chloride/Sodium Chloride (Normal Saline With 20 Meq Kcl) 1,000 mls @ 100 mls/hr IV ASDIRECTED [facility] Last Admin: 09/04/19 05:22 Dose: 100 mls/hr Ibuprofen (Motrin) 400 mg PO Q6H PRN PRN Reason: Pain (mild 1-3) Levothyroxine Sodium (Levothyroxine) 125 mcg PO ACBREAKFAST [facility] Last Admin: 09/04/19 06:05 Dose: 125 mcg Lisinopril (Prinivil) 10 mg PO DAILY [facility] Last Admin: 09/04/19 07:54 Dose: 10 mg Magnesium Oxide (Magnesium Oxide) 1,000 mg PO DAILY [facility] Last Admin: 09/04/19 07:54 Dose: 1,000 mg Metoprolol Succinate (Toprol Xl) 50 mg PO DAILY [facility] Last Admin: 09/04/19 07:52 Dose: 50 mg Nystatin (Nystop) 0 gm TOP TID PRN PRN Reason: Rash Last Admin: 09/04/19 09:03 Dose: 1 applic Potassium Chloride (Klor-Con 10) 20 meq PO DAILY [facility] Last Admin: 09/04/19 09:27 Dose: 20 meq Sertraline HCl (Zoloft) 50 mg PO BID [facility] Last Admin: 09/04/19 07:54 Dose: 50 mg Sodium Chloride (Saline Flush) 10 ml FLUSH ASDIRECTED PRN PRN Reason: Keep Vein Open Tobramycin/Dexamethasone (Tobradex Ophth Susp) 0 ml EYERT Q4H [facility] Last Admin: 09/04/19 11:19 Dose: 1 drop Discontinued Medications Ceftriaxone Sodium (Rocephin) 1 gm IVPUSH ONETIME ONE Stop: 09/03/19 18:29 Last Admin: 09/03/19 18:54 Dose: 1 gm Magnesium Sulfate/Dextrose 2 (gm/ Premix) 200 mls @ 100 mls/hr IV ONETIME ONE Stop: 09/04/19 11:25 Last Admin: 09/04/19 09:58 Dose: 100 mls/hr Magnesium Sulfate (Magnesium Sulfate 50%) 1 gm IV ONETIME ONE Stop: 09/03/19 18:23 Last Admin: 09/03/19 18:54 Dose: 1 gm - Exam General: Alert, Oriented HEENT: Mucous Membr. Moist/[place] Neck: Supple Lungs: Decreased Breath Sounds Cardiovascular: Regular Rate, Regular Rhythm GI/Abdominal Exam: Normal Bowel Sounds, Soft, Non-Tender Extremities: Normal Inspection, No Pedal Edema Skin: Warm, Dry Neurological: No New Focal Deficit Sepsis Event Note - Evaluation Sepsis Screening Result: No Definite Risk - Focused Exam Vital Signs: Vital Signs Temp Pulse Pulse Resp BP BP BP 09/04/19 12:00 98.4 F 82 16 149/80 H 09/04/19 08:00 97.8 F 116 H 20 151/83 H 09/04/19 07:54 151/83 H 09/04/19 07:52 116 H 151/83 H 09/04/19 04:00 98.1 F 90 18 134/78 Pulse Ox 09/04/19 12:00 98 09/04/19 08:00 96 09/04/19 07:54 09/04/19 07:52 09/04/19 04:00 95 Date Exam was Performed: 09/04/19 Time Exam was Performed: 20:20 - Problem List & Annotations (1) Hypomagnesemia SNOMED Code(s): 842419039 Code(s): E83.42 - HYPOMAGNESEMIA Status: Acute Priority: High Current Visit: Yes (2) Hypokalemia SNOMED Code(s): 64495790 Code(s): E87.6 - HYPOKALEMIA Status: Acute Priority: High Current Visit : Yes (3) Weakness generalized SNOMED Code(s): 35883499 Code(s): R53.1 - WEAKNESS Status: Acute Priority: High Current Visit: Yes - Problem List Review Problem List Initiated/Reviewed/Updated: Yes - My Orders Last 24 Hours: My Active Orders 09/04/19 09:00 [email or web address] [Rocephin] 1 gm IVPUSH Q24H 09/04/19 09:15 Potassium Chloride [Klor-Con 10] 20 meq PO DAILY - Assessment Assessment:: Hypokalemia Hypomagnesemia Fever Weakness - Plan Plan:: Patient admits to generalized malaise. Continues to have productive cough at times, feels somewhat more short of breath than usual. Has not noted any frequency or burning with urination. No increased edema. Potassium is improved today at 3.4, magnesium 1.7. Did get 1 gm of Magnesium IV yesterday, 20 meq in IV fluids. Will add oral potassium today. 2 gm of IV magnesium. Continue oral magnesium. As UA positive, will add Rocephin 1 gm IV every 24 hours. Repeat labs in am.
[2019-09-04] MEDS: Enoxaparin 30 MG/0.3 ML Syringe SUBCUT SCH (19:29)
[2019-09-05] MEDS: Dexamethasone/Tobramycin 0.1-0.3% Ophth Susp 2.5 ML Bottle EYERT SCH ×6 (04:00→22:51)
[2019-09-05] MEDS: NS + KCl 20mEq/L 1,000 ML IV SCH (04:01)
[2019-09-05] MEDS: Levothyroxine 125 MCG Tab PO SCH (06:31)
[2019-09-05] MEDS: Furosemide 80 MG Tab PO SCH (07:38)
[2019-09-05] MEDS: glipiZIDE 5 MG Tab.ER PO SCH (07:38)
[2019-09-05] MEDS: Potassium Chloride 10 MEQ Tab.ER PO SCH (07:38)
[2019-09-05] MEDS: Aspirin 81 MG Tab.EC PO SCH (07:39)
[2019-09-05] MEDS: Lisinopril 10 MG Tab PO SCH (07:39)
[2019-09-05] MEDS: Metoprolol Succinate 25 MG Tab.ER PO SCH (07:40)
[2019-09-05] MEDS: Sertraline 25 MG Tab PO SCH ×2 (07:40→19:41)
[2019-09-05] MEDS: cefTRIAXone 1 GM Vial IVPUSH SCH (09:29)
[2019-09-05] MEDS: Acetaminophen 325 MG Tab PO PRN ×2 (15:31→20:36)
[2019-09-05] MEDS: Nystatin Topical Powder 15 GM Bottle TOP PRN (16:04)
[2019-09-05] MEDS: Enoxaparin 30 MG/0.3 ML Syringe SUBCUT SCH (19:40)
--- NOTE | 2019-09-05 22:05 | PCM.PN ---
- General Info Date of Service: 09/05/19 Admission Dx/Problem (Free Text): Fever Weakness Functional Status: Reports: Pain Controlled, Tolerating Diet, Ambulating - Review of Systems General: Reports: Weakness, Fatigue. Denies: Fever HEENT: Reports: Post Nasal Drip, Sinus Congestion. Denies: Ear Pain Pulmonary: Reports: Cough, Sputum. Denies: Shortness of Breath Cardiovascular: Denies: Chest Pain, Edema, Lightheadedness Gastrointestinal: Reports: Nausea, Vomiting. Denies: Abdominal Pain Genitourinary: Reports: No Symptoms Musculoskeletal: Reports: No Symptoms Skin: Reports: No Symptoms Neurological: Reports: No Symptoms - Patient Data Vitals - Most Recent: Last Vital Signs Temp 101.1 F H 09/05/19 20:00 Pulse 92 09/05/19 20:00 Resp 20 09/05/19 20:00 BP 122/65 09/05/19 20:00 Pulse Ox 94 L 09/05/19 20:00 Weight - Most Recent: 311 lb 3.2 oz I&O - Last 24 Hours: Intake & Output 09/05/19 09/05/19 09/05/19 06:59 14:59 22:59 Intake Total 1000 Balance 1000 Lab Results Last 24 Hours: Laboratory Results - last 24 hr 09/05/19 09/05/19 Range/Units 05:11 05:11 WBC 8.1 (5.0-10.0) 10^3/uL RBC 3.69 L (4.00-5.50) 10^6/uL Hgb 12.4 (12.0-16.0) g/dL Hct 37.8 (37.0-47.0) % MCV 102.4 H (82.0-94.0) fL MCH 33.6 H (27.0-32.0) pg MCHC 32.8 L (33.0-38.0) g/dL RDW Coeff of Ronan 14.0 (11.0-15.0) % Plt Count 128 L (150-400) 10^3/uL Neut % (Auto) 73.9 (35-85) % Lymph % (Auto) 13.0 (10-55) % [place] % (Auto) 8.8 (0-16) % Eos % (Auto) 3.6 (0-5) % Baso % (Auto) 0.7 (0-3) % Neut # (Auto) 5.94 (1.80-7.00) 10^3/uL Lymph # (Auto) 1.05 (1.00-4.80) 10^3/uL [place] # (Auto) 0.71 (0.00-0.80) 10^3/uL Eos # (Auto) 0.29 (0.00-0.45) 10^3/uL Baso # (Auto) 0.06 10^3/uL Sodium 146 H (136-145) mEq/L Potassium 4.5 D (3.5-5.0) mEq/L Chloride 108 H (98-106) mEq/L Carbon Dioxide 31 (21-32) mmol/L BUN 14 (7-18) mg/dL Creatinine 1.2 H (0.6-1.0) mg/dL Est Cr Clr Drug Dosing 31.40 mL/min Estimated GFR (MDRD) 43 L (>=60) mL/min Glucose 151 H (75-99) mg/dL Calcium 8.7 (8.4-10.1) mg/dL Magnesium 2.2 (1.8-2.4) mg/dL C-Reactive Protein 4.4 H (0.2-0.8) mg/dL Robert Results Last 24 Hours: Microbiology 09/03/19 17:45 Aerobic Blood Culture - Preliminary Blood NO GROWTH AFTER 2 DAYS Anaerobic Blood Culture - Final 09/03/19 17:45 Aerobic Blood Culture - Preliminary Blood NO GROWTH AFTER 2 DAYS Anaerobic Blood Culture - Preliminary NO GROWTH AFTER 2 DAYS Med Orders - Current: Current Medications Acetaminophen (Tylenol) 650 mg PO Q4H PRN PRN Reason: Pain (Mild 1-3)/fever Last Admin: 09/05/19 20:36 Dose: 650 mg Albuterol/Ipratropium (Duoneb 3.0-0.5 Mg/3 Ml) 3 ml NEB Q4H PRN PRN Reason: Shortness Of Breath/wheezing Aspirin (Halfprin) 81 mg PO DAILY [facility] Last Admin: 09/05/19 07:39 Dose: 81 mg Ceftriaxone Sodium (Rocephin) 1 gm IVPUSH Q24H [facility] Last Admin: 09/05/19 09:29 Dose: 1 gm Enoxaparin Sodium (Lovenox) 30 mg SUBCUT Q24H [facility] Last Admin: 09/05/19 19:40 Dose: 30 mg Furosemide (Lasix) 40 mg PO DAILY [facility] Last Admin: 09/05/19 07:38 Dose: 40 mg Glipizide (Glucotrol Xl) 5 mg PO DAILY [facility] Last Admin: 09/05/19 07:38 Dose: 5 mg Ibuprofen (Motrin) 400 mg PO Q6H PRN PRN Reason: Pain (mild 1-3) Levothyroxine Sodium (Levothyroxine) 125 mcg PO ACBREAKFAST [facility] Last Admin: 09/05/19 06:31 Dose: 125 mcg Lisinopril (Prinivil) 10 mg PO DAILY [facility] Last Admin: 09/05/19 07:39 Dose: 10 mg Magnesium Oxide (Magnesium Oxide) 1,000 mg PO DAILY [facility] Last Admin: 09/05/19 07:38 Dose: 1,000 mg Metoprolol Succinate (Toprol Xl) 50 mg PO DAILY [facility] Last Admin: 09/05/19 07:40 Dose: 50 mg Nystatin (Nystop) 0 gm TOP TID PRN PRN Reason: Rash Last Admin: 09/05/19 16:04 Dose: 1 applic Potassium Chloride (Klor-Con 10) 20 meq PO DAILY [facility] Last Admin: 09/05/19 07:38 Dose: 20 meq Sertraline HCl (Zoloft) 50 mg PO BID [facility] Last Admin: 09/05/19 19:41 Dose: 50 mg Sodium Chloride (Saline Flush) 10 ml FLUSH ASDIRECTED PRN PRN Reason: Keep Vein Open Tobramycin/Dexamethasone (Tobradex Ophth Susp) 0 ml EYERT Q4H [facility] Last Admin: 09/05/19 18:44 Dose: 1 drop Discontinued Medications Ceftriaxone Sodium (Rocephin) 1 gm IVPUSH ONETIME ONE Stop: 09/03/19 18:29 Last Admin: 09/03/19 18:54 Dose: 1 gm Potassium Chloride/Sodium Chloride (Normal Saline With 20 Meq Kcl) 1,000 mls @ 100 mls/hr IV ASDIRECTED [facility] Last Admin: 09/05/19 04:01 Dose: 100 mls/hr Magnesium Sulfate/Dextrose 2 (gm/ Premix) 200 mls @ 100 mls/hr IV ONETIME ONE Stop: 09/04/19 11:25 Last Admin: 09/04/19 09:58 Dose: 100 mls/hr Magnesium Sulfate (Magnesium Sulfate 50%) 1 gm IV ONETIME ONE Stop: 09/03/19 18:23 Last Admin: 09/03/19 18:54 Dose: 1 gm - Exam General: Alert, Oriented HEENT: Mucous Membr. Moist/[place] Neck: Supple Lungs: Clear to Auscultation, Normal Respiratory Effort Cardiovascular: Regular Rate, Regular Rhythm GI/Abdominal Exam: Normal Bowel Sounds, Soft, Non-Tender Extremities: Normal Inspection, Pedal Edema Skin: Warm, Dry Neurological: No New Focal Deficit Sepsis Event Note - Evaluation Sepsis Screening Result: No Definite Risk - Focused Exam Vital Signs: Vital Signs Temp Pulse Resp BP BP Pulse Ox 09/05/19 20:00 101.1 F H 92 20 122/65 94 L 09/05/19 18:10 100.5 F 09/05/19 16:40 100.6 F 09/05/19 15:30 100.8 F H 89 18 152/86 H 95 09/05/19 12:00 99.4 F 78 16 134/65 97 Date Exam was Performed: 09/05/19 Time Exam was Performed: 21:59 - Problem List & Annotations (1) Hypomagnesemia SNOMED Code(s): 557124306 Code(s): E83.42 - HYPOMAGNESEMIA Status: Acute Priority: High Current Visit: Yes (2) Hypokalemia SNOMED Code(s): 13119156 Code(s): E87.6 - HYPOKALEMIA Status: Acute Priority: High Current Visit : Yes (3) Weakness generalized SNOMED Code(s): 06780001 Code(s): R53.1 - WEAKNESS Status: Acute Priority: High Current Visit: Yes - Problem List Review Problem List Initiated/Reviewed/Updated: Yes - Assessment Assessment:: Hypokalemia Hypomagnesemia Fever Weakness - Plan Plan:: Patient admits to generalized malaise. Continues to have productive cough at times, feels somewhat more short of breath than usual. Has not noted any frequency or burning with urination. No increased edema. Potassium is improved today at 3.4, magnesium 1.7. Did get 1 gm of Magnesium IV yesterday, 20 meq in IV fluids. Will add oral potassium today. 2 gm of IV magnesium. Continue oral magnesium. As UA positive, will add Rocephin 1 gm IV every 24 hours. Repeat labs in am. 09-05-2019 Patient feeling nauseated this am. Patient feels related to her magnesium tablets. She was eating breakfast, had sudden onset nausea and vomited. No abdominal pain. No shortness of breath or chest pain. She does continue to have cough with phlegm production, mostly postnasal drainage. Magnesium up to 2.2 this am, potassium 4.5. Will stop IV fluids today. Continue oral potassium and magnesium. Repeat labs in am. Continue IV Rocephin. Monitor through day, possible discharge home tomorrow if able to maintain electrolytes on oral meds
[2019-09-06] MEDS: Dexamethasone/Tobramycin 0.1-0.3% Ophth Susp 2.5 ML Bottle EYERT SCH ×3 (03:27→10:50)
[2019-09-06] MEDS: Levothyroxine 125 MCG Tab PO SCH (06:30)
[2019-09-06 07:47] VITALS: BP 122/71
[2019-09-06] MEDS: glipiZIDE 5 MG Tab.ER PO SCH (08:07)
[2019-09-06] MEDS: Sertraline 25 MG Tab PO SCH (08:07)
[2019-09-06] MEDS: Lisinopril 10 MG Tab PO SCH (08:08)
[2019-09-06] MEDS: Furosemide 80 MG Tab PO SCH (08:09)
[2019-09-06] MEDS: Aspirin 81 MG Tab.EC PO SCH (08:09)
[2019-09-06] MEDS: Metoprolol Succinate 25 MG Tab.ER PO SCH (08:12)
[2019-09-06] MEDS: cefTRIAXone 1 GM Vial IVPUSH SCH (08:13)
[2019-09-06] MEDS: Potassium Chloride 10 MEQ Tab.ER PO SCH ×2 (08:13→09:30)
[2019-09-06 08:14] VITALS: PULSE 94
--- NOTE | 2019-09-09 13:30 | PCM.DCSUM1 ---
Discharge Summary - Hospital Course HPI Initial Comments: Patient presented to clinic with a one week history of cough, fever, chills and weakness. States felt more short of breath than usual. Cough productive of yellow sputum. Increased fatigue. She had also noted increased redness and tearing from her eyes bilaterally. Lung sounds diminished, chest xray concerning for right lower lobe infiltrate. Femi did send patient up to see Dr. Waller due to concerns of scleritis. Dr. Waller felt it was related to a subconjunctival hemorrhage with conjunctivitis. Advised to place on Tobradex. She was admitted for concerns of pneumonia, placed on IV Rocephin and Zithromax. Lab noted to show low potassium at 3.2, magnesium 1.6. IV fluids with potassium started, one gram of magnesium IV given. Diagnosis: Stroke: No Modified [place] Scale: No Symptoms at All Modified [place] Scale Score: 0 - Discharge Data Discharge Date: 09/06/19 Discharge Disposition: Home, Self-Care 01 Condition: Fair - Referral to Home Health Primary Care Physician: Jose Caceres PA-C - Discharge Diagnosis/Problem(s) (1) Hypomagnesemia SNOMED Code(s): 550508632 ICD Code: E83.42 - HYPOMAGNESEMIA Status: Acute Priority: High (2) Hypokalemia SNOMED Code(s): 00358843 ICD Code: E87.6 - HYPOKALEMIA Status: Acute Priority: High (3) Weakness generalized SNOMED Code(s): 96369416 ICD Code: R53.1 - WEAKNESS Status: Acute Priority: High (4) UTI (urinary tract infection) SNOMED Code(s): 38404436 ICD Code: N39.0 - URINARY TRACT INFECTION, SITE NOT SPECIFIED Status: Acute Priority: High Qualifiers: Urinary tract infection type: acute cystitis Hematuria presence: with hematuria Qualified Code(s): N30.01 - Acute cystitis with hematuria - Patient Summary/Data Complications: none Hospital Course: Patient is feeling better. Is ambulating short distances and tolerating well, feels close to her norm. Does continue to have productive cough, mostly clear phlegm. Lung sounds are clear. Chest xray read out as negative. UA was positive, continued Rocephin through stay. Initial potassium 3.2, now stable at 4.5. Was started on KCL 20 meq daily. Magnesium up to 2.2 after being given a total of 3 gm of IV magnesium. Will discharge on oral magnesium and potassium. Complete course of Ceftin. Follow up with Femi Caceres next week with repeat labs. - Patient Instructions Diet: Usual Diet as Tolerated Activity: As Tolerated - Discharge Plan *PRESCRIPTION DRUG MONITORING PROGRAM REVIEWED*: No *COPY OF PRESCRIPTION DRUG MONITORING REPORT IN PATIENT GAGE: No Prescriptions/Med Rec: Cefuroxime Axetil [Ceftin] 250 mg PO BID #14 tablet Dexamethasone/Tobramycin [Tobradex Ophth Susp] 2.5 ml EYERT QID #1 bottle Potassium Chloride [Klor-Con 10] 20 meq PO DAILY #30 tab.er Home Medications: Home Meds Aspirin [Adult Low Dose Aspirin EC] 81 mg PO DAILY 05/11/15 [History] Furosemide [Lasix] 40 mg PO DAILY 05/11/15 [History] Levothyroxine 125 mcg PO DAILY 05/11/15 [History] Quinapril [Accupril] 20 mg PO DAILY 05/11/15 [History] Sertraline [Zoloft] 50 mg PO BID 05/11/15 [History] Acetaminophen [Acetaminophen Extra Strength] 1,000 mg PO BID PRN 12/04/18 [ History] Magnesium Oxide [Magnesium] 1,000 mg PO DAILY 12/04/18 [History] Metoprolol Succinate 50 mg PO DAILY 12/04/18 [History] Nystatin 1 applic TOP TID PRN 12/04/18 [History] Cyclobenzaprine HCl 10 mg PO Q8H PRN 09/03/19 [History] glipiZIDE [Glipizide ER] 5 mg PO DAILY 09/03/19 [History] Cefuroxime Axetil [Ceftin] 250 mg PO BID #14 tablet 09/06/19 [Rx] Dexamethasone/Tobramycin [Tobradex Ophth Susp] 2.5 ml EYERT QID #1 bottle [Rx] Potassium Chloride [Klor-Con 10] 20 meq PO DAILY #30 tab.er 09/06/19 [Rx] Referrals: Jose Caceres PA-C [Primary Care Provider] - (Follow up with Femi Caceres in one week) - Discharge Summary/Plan Comment DC Time >30 min.: No - General Info Date of Service: 09/06/19 Admission Dx/Problem (Free Text: Fever Weakness Functional Status: Reports: Pain Controlled, Tolerating Diet, Ambulating - Review of Systems General: Reports: Weakness, Fatigue, Malaise HEENT: Reports: Rhinitis Pulmonary: Reports: Shortness of Breath, Cough, Sputum Cardiovascular: Denies: Chest Pain, Edema, Lightheadedness Gastrointestinal: Denies: Abdominal Pain, Nausea, Vomiting Genitourinary: Reports: No Symptoms Musculoskeletal: Reports: No Symptoms Skin: Reports: No Symptoms Neurological: Reports: Weakness - Patient Data Vitals - Most Recent: Last Vital Signs Temp 98.3 F 09/06/19 07:45 Pulse 94 09/06/19 08:12 Resp 18 09/06/19 07:45 BP 122/71 09/06/19 08:12 Pulse Ox 94 L 09/06/19 07:45 Weight - Most Recent: 311 lb 3.2 oz PATRICIO Results - Last 24 hrs: Microbiology 09/03/19 17:45 Aerobic Blood Culture - Final Blood NO GROWTH AFTER 5 DAYS Anaerobic Blood Culture - Final 09/03/19 17:45 Aerobic Blood Culture - Final Blood NO GROWTH AFTER 5 DAYS Anaerobic Blood Culture - Final NO GROWTH AFTER 5 DAYS Med Orders - Current: Current Medications Discontinued Medications Acetaminophen (Tylenol) 650 mg PO Q4H PRN PRN Reason: Pain (Mild 1-3)/fever Last Admin: 09/05/19 20:36 Dose: 650 mg Albuterol/Ipratropium (Duoneb 3.0-0.5 Mg/3 Ml) 3 ml NEB Q4H PRN PRN Reason: Shortness Of Breath/wheezing Aspirin (Halfprin) 81 mg PO DAILY [facility] Last Admin: 09/06/19 08:09 Dose: 81 mg Ceftriaxone Sodium (Rocephin) 1 gm IVPUSH ONETIME ONE Stop: 09/03/19 18:29 Last Admin: 09/03/19 18:54 Dose: 1 gm Ceftriaxone Sodium (Rocephin) 1 gm IVPUSH Q24H [facility] Last Admin: 09/06/19 08:13 Dose: 1 gm Enoxaparin Sodium (Lovenox) 30 mg SUBCUT Q24H [facility] Last Admin: 09/05/19 19:40 Dose: 30 mg Furosemide (Lasix) 40 mg PO DAILY [facility] Last Admin: 09/06/19 08:09 Dose: 40 mg Glipizide (Glucotrol Xl) 5 mg PO DAILY [facility] Last Admin: 09/06/19 08:07 Dose: 5 mg Potassium Chloride/Sodium Chloride (Normal Saline With 20 Meq Kcl) 1,000 mls @ 100 mls/hr IV ASDIRECTED [facility] Last Admin: 09/05/19 04:01 Dose: 100 mls/hr Magnesium Sulfate/Dextrose 2 (gm/ Premix) 200 mls @ 100 mls/hr IV ONETIME ONE Stop: 09/04/19 11:25 Last Admin: 09/04/19 09:58 Dose: 100 mls/hr Ibuprofen (Motrin) 400 mg PO Q6H PRN PRN Reason: Pain (mild 1-3) Levothyroxine Sodium (Levothyroxine) 125 mcg PO ACBREAKFAST [facility] Last Admin: 09/06/19 06:30 Dose: 125 mcg Lisinopril (Prinivil) 10 mg PO DAILY [facility] Last Admin: 09/06/19 08:08 Dose: 10 mg Magnesium Oxide (Magnesium Oxide) 1,000 mg PO DAILY [facility] Last Admin: 09/06/19 08:11 Dose: 1,000 mg Magnesium Sulfate (Magnesium Sulfate 50%) 1 gm IV ONETIME ONE Stop: 09/03/19 18:23 Last Admin: 09/03/19 18:54 Dose: 1 gm Metoprolol Succinate (Toprol Xl) 50 mg PO DAILY [facility] Last Admin: 09/06/19 08:12 Dose: 50 mg Nystatin (Nystop) 0 gm TOP TID PRN PRN Reason: Rash Last Admin: 09/05/19 16:04 Dose: 1 applic Potassium Chloride (Klor-Con 10) 20 meq PO DAILY [facility] Last Admin: 09/06/19 09:30 Dose: 20 meq Sertraline HCl (Zoloft) 50 mg PO BID [facility] Last Admin: 09/06/19 08:07 Dose: 50 mg Sodium Chloride (Saline Flush) 10 ml FLUSH ASDIRECTED PRN PRN Reason: Keep Vein Open Tobramycin/Dexamethasone (Tobradex Ophth Susp) 0 ml EYERT Q4H [facility] Last Admin: 09/06/19 10:50 Dose: 1 drop - Exam General: Reports: Alert, Oriented HEENT: Reports: Mucous Membr. Moist/[place] Neck: Reports: Supple Lungs: Reports: Clear to Auscultation, Normal Respiratory Effort Cardiovascular: Reports: Regular Rate, Regular Rhythm GI/Abdominal Exam: Normal Bowel Sounds, Soft, Non-Tender Extremities: Normal Inspection, No Pedal Edema Skin: Reports: Warm, Dry Neurological: Reports: No New Focal Deficit
== END 2019-09-06 14:15 | disposition home or self-care (01) | DRG 690 ==
LOC: CC.FCMC 15:41 → UNDOADMIN 17:17 → CC.MS 17:17
PROVIDERS: ADMIT Physician Assistant Medical; ATTEND Family Medicine
DX: N30.01 Acute cystitis with hematuria (principal); Z68.43 Body mass index [BMI] 50.0-59.9, adult; E83.42 Hypomagnesemia; E87.6 Hypokalemia; G89.29 Other chronic pain; M54.5 Low back pain; K59.00 Constipation, unspecified; F32.9 Major depressive disorder, single episode, unspecified; K21.9 Gastro-esophageal reflux disease without esophagitis; E03.9 Hypothyroidism, unspecified; H11.33 Conjunctival hemorrhage, bilateral; M19.90 Unspecified osteoarthritis, unspecified site; E11.9 Type 2 diabetes mellitus without complications; E66.01 Morbid (severe) obesity due to excess calories; I10 Essential (primary) hypertension; E78.5 Hyperlipidemia, unspecified; Z96.649 Presence of unspecified artificial hip joint; Z79.82 Long term (current) use of aspirin; Z88.5 Allergy status to narcotic agent; Z79.890 Hormone replacement therapy; Z79.899 Other long term (current) drug therapy; Z79.84 Long term (current) use of oral hypoglycemic drugs; Z98.49 Cataract extraction status, unspecified eye; Z90.49 Acquired absence of other specified parts of digestive tract; Z90.710 Acquired absence of both cervix and uterus
CPT/HCPCS: 36415; 71046; 80048; 80053; 81001; 82962; 83605; 83735; 85025; 86140; 87040; A9270-GY; J0696; J1650; J3475; J3480

== ENCOUNTER 2019-09-13 14:36 | Inpatient (IN) | payer MEDICARE, OTHER ==
[2019-09-13 15:10] LABS: CHLORIDE,CL 105 mEq/L (98-106); SODIUM,NA 143 mEq/L (136-145)
[2019-09-13] MEDS ORDERED: Iopamidol 755 Mg/ML 100 ML Bottle IVPUSH ONE (15:14)
[2019-09-13] MEDS ORDERED: Albuterol/Ipratropium 3.0-0.5 MG/3 ML Neb Soln INH ONE (15:15)
[2019-09-13] MEDS ORDERED: Sodium Chloride 0.9% 10 ML Syringe FLUSH PRN (18:03)
[2019-09-13] MEDS ORDERED: Acetaminophen 325 MG Tab PO PRN (18:03)
[2019-09-13] MEDS ORDERED: Docusate Sodium 100 MG Cap PO PRN (18:03)
[2019-09-13] MEDS ORDERED: Nystatin Topical Powder 15 GM Bottle TOP PRN (18:08)
[2019-09-13] MEDS ORDERED: Cyclobenzaprine 10 MG Tab PO PRN (18:08)
[2019-09-13] MEDS ORDERED: Levofloxacin/Dextrose 5%-Water 500 MG in Premix Bag 1 BAG IV SCH (18:15)
[2019-09-13] MEDS: Furosemide 40 MG/4 ML VIAL IVPUSH SCH (19:02)
[2019-09-13] MEDS ORDERED: Levofloxacin/Dextrose 5%-Water 500 MG in Premix Bag 1 BAG IV ONE (19:15)
[2019-09-13] MEDS: Sertraline 25 MG Tab PO SCH (19:46)
[2019-09-13] MEDS: Apixaban 5 MG Tab PO SCH (19:46)
[2019-09-13] MEDS: Albuterol/Ipratropium 3.0-0.5 MG/3 ML Neb Soln NEB SCH (19:46)
[2019-09-13] MEDS: Dexamethasone/Tobramycin 0.1-0.3% Ophth Susp 2.5 ML Bottle EYERT SCH (23:42)
[2019-09-14] MEDS: Albuterol/Ipratropium 3.0-0.5 MG/3 ML Neb Soln NEB SCH ×4 (07:54→19:31)
[2019-09-14] MEDS: Metoprolol Succinate 25 MG Tab.ER PO SCH (07:55)
[2019-09-14] MEDS: Sertraline 25 MG Tab PO SCH ×2 (07:55→19:31)
[2019-09-14] MEDS: Levothyroxine 125 MCG Tab PO SCH (07:55)
[2019-09-14] MEDS: Potassium Chloride 10 MEQ Tab.ER PO SCH (07:55)
[2019-09-14] MEDS: Dexamethasone/Tobramycin 0.1-0.3% Ophth Susp 2.5 ML Bottle EYERT SCH ×3 (08:02→17:20)
[2019-09-14] MEDS: Apixaban 5 MG Tab PO SCH ×2 (08:36→19:30)
[2019-09-14] MEDS: glipiZIDE 5 MG Tab.ER PO SCH (08:36)
--- NOTE | 2019-09-14 13:16 | PCM.PN ---
- General Info Date of Service: 09/14/19 Functional Status: Reports: Pain Controlled - Review of Systems General: Reports: Weakness. Denies: Fever HEENT: Reports: No Symptoms. Denies: Headaches, Sinus Congestion, Sore Throat Pulmonary: Reports: Cough, Sputum (yellow). Denies: Shortness of Breath Cardiovascular: Reports: No Symptoms, Edema (lower ext,no calf pain). Denies: Chest Pain, Palpitations Gastrointestinal: Reports: No Symptoms. Denies: Abdominal Pain, Nausea, Vomiting Genitourinary: Reports: No Symptoms Musculoskeletal: Denies: Neck Pain, Back Pain Skin: Reports: No Symptoms Neurological: Reports: No Symptoms. Denies: Headache Psychiatric: Reports: No Symptoms - Patient Data Vitals - Most Recent: Last Vital Signs Temp 36.9 C 09/14/19 12:00 Pulse 98 09/14/19 12:00 Resp 22 H 09/14/19 12:00 BP 148/84 H 09/14/19 12:00 Pulse Ox 99 09/14/19 12:00 Weight - Most Recent: 144.242 kg Lab Results Last 24 Hours: Laboratory Results - last 24 hr 09/13/19 09/13/19 09/13/19 Range/Units 14:41 14:41 14:41 WBC 8.0 (5.0-10.0) 10^3/uL RBC 3.83 L (4.00-5.50) 10^6/uL Hgb 12.8 (12.0-16.0) g/dL Hct 38.9 (37.0-47.0) % MCV 101.6 H (82.0-94.0) fL MCH 33.4 H (27.0-32.0) pg MCHC 32.9 L (33.0-38.0) g/dL RDW Coeff of [place]an 14.3 (11.0-15.0) % Plt Count 191 (150-400) 10^3/uL Neut % (Auto) 70.9 (35-85) % Lymph % (Auto) 13.1 (10-55) % [place] % (Auto) 10.5 (0-16) % Eos % (Auto) 4.0 (0-5) % Baso % (Auto) 1.5 (0-3) % Neut # (Auto) 5.68 (1.80-7.00) 10^3/uL Lymph # (Auto) 1.05 (1.00-4.80) 10^3/uL [place] # (Auto) 0.84 H (0.00-0.80) 10^3/uL Eos # (Auto) 0.32 (0.00-0.45) 10^3/uL Baso # (Auto) 0.12 10^3/uL Add Manual Diff Neutrophils % (Manual) (35-85) % Band Neutrophils % (0-5) % Lymphocytes % (Manual) (21-55) % Monocytes % (Manual) (2-12) % Eosinophils % (Manual) (0-5) % Basophils % (Manual) (0-3) % Absolute Neutrophils (1.80-7.00) 10^3/uL Lymphocytes # (Manual) (1.00-4.80) 10^3/uL Monocytes # (Manual) (0.00-0.80) 10^3/uL Eosinophils # (Manual) (0.00-0.45) 10^3/uL Basophils # (Manual) 10^3/uL Platelet Estimate (ADEQUATE) Macrocytosis (NOT SEEN) D-Dimer, Quantitative 13.89 H (0.00-0.50) Sodium 143 (136-145) mEq/L Potassium 4.4 (3.5-5.0) mEq/L Chloride 105 (98-106) mEq/L Carbon Dioxide 27 (21-32) mmol/L BUN 18 (7-18) mg/dL Creatinine 1.4 H (0.6-1.0) mg/dL Est Cr Clr Drug Dosing TNP Estimated GFR (MDRD) 36 L (>=60) mL/min Glucose 199 H (75-99) mg/dL Lactic Acid (0.4-2.0) mmol/L Calcium 8.7 (8.4-10.1) mg/dL Magnesium 2.0 (1.8-2.4) mg/dL C-Reactive Protein 11.7 H (0.2-0.8) mg/dL NT-Pro-B Natriuret Pep 1204 H (0-1000) pg/mL 09/13/19 09/14/19 09/14/19 Range/Units 18:40 07:10 07:10 WBC 7.2 (5.0-10.0) 10^3/uL RBC 3.91 L (4.00-5.50) 10^6/uL Hgb 13.0 (12.0-16.0) g/dL Hct 39.5 (37.0-47.0) % MCV 101.0 H (82.0-94.0) fL MCH 33.2 H (27.0-32.0) pg MCHC 32.9 L (33.0-38.0) g/dL RDW Coeff of [place]an 14.1 (11.0-15.0) % Plt Count 132 L (150-400) 10^3/uL Neut % (Auto) (35-85) % Lymph % (Auto) (10-55) % [place] % (Auto) (0-16) % Eos % (Auto) (0-5) % Baso % (Auto) (0-3) % Neut # (Auto) (1.80-7.00) 10^3/uL Lymph # (Auto) (1.00-4.80) 10^3/uL [place] # (Auto) (0.00-0.80) 10^3/uL Eos # (Auto) (0.00-0.45) 10^3/uL Baso # (Auto) 10^3/uL Add Manual Diff Yes Neutrophils % (Manual) 61 (35-85) % Band Neutrophils % 3 (0-5) % Lymphocytes % (Manual) 18 L (21-55) % Monocytes % (Manual) 10 (2-12) % Eosinophils % (Manual) 7 H (0-5) % Basophils % (Manual) 1 (0-3) % Absolute Neutrophils 4.61 (1.80-7.00) 10^3/uL Lymphocytes # (Manual) 1.30 (1.00-4.80) 10^3/uL Monocytes # (Manual) 0.72 (0.00-0.80) 10^3/uL Eosinophils # (Manual) 0.50 H (0.00-0.45) 10^3/uL Basophils # (Manual) 0.07 10^3/uL Platelet Estimate Adequate (ADEQUATE) Macrocytosis Few (NOT SEEN) D-Dimer, Quantitative (0.00-0.50) Sodium 141 (136-145) mEq/L Potassium 4.5 (3.5-5.0) mEq/L Chloride 104 (98-106) mEq/L Carbon Dioxide 29 (21-32) mmol/L BUN 17 (7-18) mg/dL Creatinine 1.2 H (0.6-1.0) mg/dL Est Cr Clr Drug Dosing 31.40 Estimated GFR (MDRD) 43 L (>=60) mL/min Glucose 117 H D (75-99) mg/dL Lactic Acid 1.5 (0.4-2.0) mmol/L Calcium 8.6 (8.4-10.1) mg/dL Magnesium (1.8-2.4) mg/dL C-Reactive Protein 10.4 H (0.2-0.8) mg/dL NT-Pro-B Natriuret Pep (0-1000) pg/mL Robert Results Last 24 Hours: Microbiology 09/13/19 18:45 Influenza Type A Antigen Screen - Final Nasopharyngeal Swab NEGATIVE INFLUENZA A VIRUS AG REFERENCE RANGE: NEGATIVE Influenza Type B Antigen Screen - Final NEGATIVE INFLUENZA B VIRUS AG REFERENCE RANGE: NEGATIVE Med Orders - Current: Current Medications Acetaminophen (Tylenol) 650 mg PO Q4H PRN PRN Reason: Pain (Mild 1-3)/fever Albuterol/Ipratropium (Duoneb 3.0-0.5 Mg/3 Ml) 3 ml NEB QID [facility] Last Admin: 09/14/19 12:47 Dose: 3 ml Apixaban (Eliquis) 10 mg PO BID [facility] Last Admin: 09/14/19 08:36 Dose: 10 mg Cyclobenzaprine HCl (Flexeril) 10 mg PO Q8H PRN PRN Reason: Spasms Docusate Sodium (Colace) 100 mg PO BID PRN PRN Reason: Constipation Furosemide (Lasix) 40 mg IVPUSH Q24H [facility] Last Admin: 09/13/19 19:02 Dose: 40 mg Glipizide (Glucotrol Xl) 5 mg PO DAILY [facility] Last Admin: 09/14/19 08:36 Dose: 5 mg Levofloxacin/Dextrose (Levaquin In D5w 250 Mg/50 Ml) 50 mls @ 50 mls/hr IV Q24H [facility] Levothyroxine Sodium (Levothyroxine) 125 mcg PO DAILY [facility] Last Admin: 09/14/19 07:55 Dose: 125 mcg Magnesium Oxide (Magnesium Oxide) 1,000 mg PO DAILY [facility] Last Admin: 09/14/19 07:54 Dose: 1,000 mg Metoprolol Succinate (Toprol Xl) 50 mg PO DAILY [facility] Last Admin: 09/14/19 07:55 Dose: 50 mg Nystatin (Nystop) 0 gm TOP TID PRN PRN Reason: Rash Potassium Chloride (Klor-Con 10) 20 meq PO DAILY [facility] Last Admin: 09/14/19 07:55 Dose: 20 meq Sertraline HCl (Zoloft) 50 mg PO BID [facility] Last Admin: 09/14/19 07:55 Dose: 50 mg Sodium Chloride (Saline Flush) 10 ml FLUSH ASDIRECTED PRN PRN Reason: Keep Vein Open Tobramycin/Dexamethasone (Tobradex Ophth Susp) 0 ml EYERT QID [facility] Last Admin: 09/14/19 12:47 Dose: Not Given Discontinued Medications Albuterol/Ipratropium (Duoneb 3.0-0.5 Mg/3 Ml) 3 ml INH ONETIME ONE Stop: 09/13/19 15:16 Last Admin: 09/13/19 15:16 Dose: 3 ml Levofloxacin/Dextrose 500 mg/ (Premix) 100 mls @ 100 mls/hr IV Q24H [facility] Last Admin: 09/13/19 19:07 Dose: Not Given Levofloxacin/Dextrose 500 mg/ (Premix) 100 mls @ 100 mls/hr IV Q24H ONE Stop: 09/13/19 20:14 Last Admin: 09/13/19 19:02 Dose: 100 mls/hr Iopamidol (Isovue-370 (76%)) 100 ml IVPUSH ONETIME ONE Stop: 09/13/19 15:15 Last Admin: 09/13/19 15:50 Dose: 100 ml - Exam Quality Assessment: Supplemental Oxygen (1.5L nc) General: Alert, Oriented, Cooperative, No Acute Distress HEENT: Pupils Equal Neck: Supple, Trachea Midline Lungs: Normal Respiratory Effort, Wheezing (scattered exp wheezing in the bases) Cardiovascular: Regular Rate, Regular Rhythm GI/Abdominal Exam: Soft, Non-Tender Back Exam: Normal Inspection, Full Range of Motion Extremities: Normal Range of Motion, Non-Tender, Normal Capillary Refill. No: Leg Pain, Redness Peripheral Pulses: 2+: Radial (L), Radial (R), Posterior Tibial (L), Posterior Tibial (R) Skin: Warm, Dry, Intact Neurological: No New Focal Deficit Psy/Mental Status: Alert, Normal Affect, Normal Mood Sepsis Event Note - Evaluation Sepsis Screening Result: No Definite Risk - Focused Exam Vital Signs: Vital Signs Temp Pulse Pulse Resp BP BP BP 09/14/19 12:00 36.9 C 98 22 H 148/84 H 09/14/19 08:00 36.7 C 94 22 H 136/48 L 09/14/19 07:55 94 136/48 L 09/14/19 04:00 36.2 C 93 18 146/69 H Pulse Ox 09/14/19 12:00 99 09/14/19 08:00 98 09/14/19 07:55 09/14/19 04:00 96 Date Exam was Performed: 09/14/19 Time Exam was Performed: 13:06 - Problem List Review Problem List Initiated/Reviewed/Updated: Yes - Plan Plan:: pt awake and alert, no c/o cp or sob, will continue current tx plan, will recheck labs in am, will continue to monitor pt and make changes as necessary. no fever
[2019-09-14] MEDS: Furosemide 40 MG/4 ML VIAL IVPUSH SCH (17:19)
[2019-09-14] MEDS: Levofloxacin/Dextrose 5%-Water 50 ML IV SCH (17:46)
[2019-09-15] MEDS: Metoprolol Succinate 25 MG Tab.ER PO SCH (08:34)
[2019-09-15] MEDS: Sertraline 25 MG Tab PO SCH ×2 (08:34→19:49)
[2019-09-15] MEDS: Albuterol/Ipratropium 3.0-0.5 MG/3 ML Neb Soln NEB SCH ×4 (08:35→19:49)
[2019-09-15] MEDS: Levothyroxine 125 MCG Tab PO SCH (08:35)
[2019-09-15] MEDS: Potassium Chloride 10 MEQ Tab.ER PO SCH (08:35)
[2019-09-15] MEDS: glipiZIDE 5 MG Tab.ER PO SCH (08:35)
[2019-09-15] MEDS: Furosemide 40 MG/4 ML VIAL IVPUSH SCH (08:35)
[2019-09-15] MEDS: Apixaban 5 MG Tab PO SCH ×2 (08:36→19:50)
--- NOTE | 2019-09-15 11:02 | PCM.PN ---
- General Info Date of Service: 09/15/19 - Review of Systems General: Reports: No Symptoms. Denies: Fever, Weakness HEENT: Reports: No Symptoms Pulmonary: Reports: No Symptoms. Denies: Shortness of Breath Cardiovascular: Reports: No Symptoms. Denies: Chest Pain, Palpitations Gastrointestinal: Reports: No Symptoms. Denies: Abdominal Pain, Nausea, Vomiting Genitourinary: Reports: No Symptoms Musculoskeletal: Reports: No Symptoms Skin: Reports: No Symptoms Neurological: Reports: No Symptoms Psychiatric: Reports: No Symptoms - Patient Data Vitals - Most Recent: Last Vital Signs Temp 37.7 C 09/15/19 08:00 Pulse 77 09/15/19 08:34 Resp 20 09/15/19 08:00 BP 132/69 09/15/19 08:34 Pulse Ox 100 09/15/19 08:00 Weight - Most Recent: 144.242 kg [facility] Results Last 24 Hours: Microbiology 09/13/19 18:45 Aerobic Blood Culture - Preliminary Blood - Venous - Lab Draw NO GROWTH AFTER 1 DAY Anaerobic Blood Culture - Preliminary NO GROWTH AFTER 1 DAY 09/13/19 18:40 Aerobic Blood Culture - Preliminary Blood - Venous NO GROWTH AFTER 1 DAY Anaerobic Blood Culture - Preliminary NO GROWTH AFTER 1 DAY Med Orders - Current: Current Medications Acetaminophen (Tylenol) 650 mg PO Q4H PRN PRN Reason: Pain (Mild 1-3)/fever Albuterol/Ipratropium (Duoneb 3.0-0.5 Mg/3 Ml) 3 ml NEB QID [facility] Last Admin: 09/15/19 08:35 Dose: 3 ml Apixaban (Eliquis) 10 mg PO BID [facility] Last Admin: 09/15/19 08:36 Dose: 10 mg Cyclobenzaprine HCl (Flexeril) 10 mg PO Q8H PRN PRN Reason: Spasms Docusate Sodium (Colace) 100 mg PO BID PRN PRN Reason: Constipation Furosemide (Lasix) 40 mg IVPUSH DAILY [facility] Last Admin: 09/15/19 08:35 Dose: 40 mg Glipizide (Glucotrol Xl) 5 mg PO DAILY [facility] Last Admin: 09/15/19 08:35 Dose: 5 mg Levofloxacin/Dextrose (Levaquin In D5w 250 Mg/50 Ml) 50 mls @ 50 mls/hr IV Q24H [facility] Last Admin: 09/14/19 17:46 Dose: 50 mls/hr Levothyroxine Sodium (Levothyroxine) 125 mcg PO DAILY [facility] Last Admin: 09/15/19 08:35 Dose: 125 mcg Magnesium Oxide (Magnesium Oxide) 1,000 mg PO DAILY [facility] Last Admin: 09/15/19 08:34 Dose: 1,000 mg Metoprolol Succinate (Toprol Xl) 50 mg PO DAILY [facility] Last Admin: 09/15/19 08:34 Dose: 50 mg Nystatin (Nystop) 0 gm TOP TID PRN PRN Reason: Rash Potassium Chloride (Klor-Con 10) 20 meq PO DAILY [facility] Last Admin: 09/15/19 08:35 Dose: 20 meq Sertraline HCl (Zoloft) 50 mg PO BID [facility] Last Admin: 09/15/19 08:34 Dose: 50 mg Sodium Chloride (Saline Flush) 10 ml FLUSH ASDIRECTED PRN PRN Reason: Keep Vein Open Discontinued Medications Albuterol/Ipratropium (Duoneb 3.0-0.5 Mg/3 Ml) 3 ml INH ONETIME ONE Stop: 09/13/19 15:16 Last Admin: 09/13/19 15:16 Dose: 3 ml Furosemide (Lasix) 40 mg IVPUSH Q24H [facility] Last Admin: 09/14/19 17:19 Dose: 40 mg Levofloxacin/Dextrose 500 mg/ (Premix) 100 mls @ 100 mls/hr IV Q24H [facility] Last Admin: 09/13/19 19:07 Dose: Not Given Levofloxacin/Dextrose 500 mg/ (Premix) 100 mls @ 100 mls/hr IV Q24H ONE Stop: 09/13/19 20:14 Last Admin: 09/13/19 19:02 Dose: 100 mls/hr Iopamidol (Isovue-370 (76%)) 100 ml IVPUSH ONETIME ONE Stop: 09/13/19 15:15 Last Admin: 09/13/19 15:50 Dose: 100 ml Tobramycin/Dexamethasone (Tobradex Ophth Susp) 0 ml EYERT QID [facility] Last Admin: 09/14/19 17:20 Dose: Not Given - Exam Quality Assessment: Supplemental Oxygen General: Alert, Oriented, Cooperative Neck: Supple Lungs: Normal Respiratory Effort, Decreased Breath Sounds (in the bases) Cardiovascular: Regular Rate, Regular Rhythm, Murmurs GI/Abdominal Exam: Soft, Non-Tender (Female) Exam: Normal External Exam Back Exam: Normal Inspection, Full Range of Motion Extremities: Normal Inspection, Normal Range of Motion, Non-Tender, No Pedal Edema, Normal Capillary Refill. No: Leg Pain, Redness Peripheral Pulses: 2+: Radial (L), Radial (R) Skin: Warm, Dry, Intact Neurological: No New Focal Deficit Psy/Mental Status: Alert, Normal Affect, Normal Mood Sepsis Event Note - Evaluation Sepsis Screening Result: No Definite Risk - Focused Exam Vital Signs: Vital Signs Temp Pulse Pulse Resp BP BP Pulse Ox 09/15/19 08:34 77 132/69 09/15/19 08:00 37.7 C 77 20 132/69 100 09/15/19 04:00 36.8 C 79 18 150/81 H 99 09/15/19 00:00 35.9 C 82 18 118/61 96 Date Exam was Performed: 09/15/19 Time Exam was Performed: 10:59 - Problem List Review Problem List Initiated/Reviewed/Updated: Yes - My Orders Last 24 Hours: My Active Orders 09/16/19 05:11 CBC WITH AUTO DIFF [HEME] AM COMPREHENSIVE METABOLIC PN,CMP [CHEM] AM INR,PT,PROTHROMBIN TIME [COAG] AM 09/17/19 05:11 CBC WITH AUTO DIFF [HEME] AM INR,PT,PROTHROMBIN TIME [COAG] AM - Plan Plan:: pt awake and alert, no c/o cp or sob, will continue current tx plan, will recheck labs in am, will continue to monitor pt and make changes as necessary. no fever 09/15/19 1100 pt had a good day yesterday, she denies any CP or SOB, will continue treatment plan, will repeat labs in am and make changes as needed to her tx plan
[2019-09-15] MEDS: Levofloxacin/Dextrose 5%-Water 50 ML IV SCH (18:50)
[2019-09-16] MEDS: glipiZIDE 5 MG Tab.ER PO SCH (07:32)
[2019-09-16] MEDS: Sertraline 25 MG Tab PO SCH (07:32)
[2019-09-16] MEDS: Potassium Chloride 10 MEQ Tab.ER PO SCH (07:32)
[2019-09-16] MEDS: Albuterol/Ipratropium 3.0-0.5 MG/3 ML Neb Soln NEB SCH (07:32)
[2019-09-16] MEDS: Furosemide 40 MG/4 ML VIAL IVPUSH SCH (07:32)
[2019-09-16] MEDS: Apixaban 5 MG Tab PO SCH (07:33)
[2019-09-16] MEDS: Levothyroxine 125 MCG Tab PO SCH (07:33)
[2019-09-16] MEDS: Metoprolol Succinate 25 MG Tab.ER PO SCH (07:33)
[2019-09-16 07:34] VITALS: BP 118/63; PULSE 74
--- NOTE | 2019-09-16 09:13 | PCM.DCSUM1 ---
Discharge Summary - Hospital Course Free Text/Narrative:: Patient presented to clinic to see Femi Caceres in follow up for recent hospitalization. Had URI symptoms, chest xray was done at that time that ruled out pneumonia. Was found to have UTI, treated with 3 days of Rocephin and sent home on Ceftin. Returned to see Femi for follow up and was still feeling short of breath and noting a productive cough. She noted increased swelling in her legs, was taking 2 doses of lasix per day and not urinating well. Was sent over for oxygen testing as was 90% on room air. WBC 8, d-dimer was high at 13.89. BMP normal. ProBNP 1204. CRP 11.7. CT scan of chest did show bilateral pneumonia, bilateral PE. Was admitted and started on Eliquis and IV Levaquin. Diagnosis: Stroke: No Modified Oliver Scale: No Symptoms at All Modified Oliver Scale Score: 0 - Discharge Data Discharge Date: 09/16/19 Discharge Disposition: DC/Tfer W/I Hosp To [place] [id number] Condition: Good - Referral to Home Health Primary Care Physician: Jose Caceres PA-C - Patient Summary/Data Complications: none Hospital Course: Patient is doing well today. Still requires oxygen to keep sats over 90%. Is ambulating to bathroom and tolerating well. Does still feel weak. Has ongoing productive cough at times. Lung sounds today note crackles in the bases. WBC normal at 8.6. CRP has improved to 10.4. Electrolytes are normal. Will transfer to [facility] status for ongoing IV therapy, physical therapy. Possible discharge at the end of the week. - Patient Instructions Diet: Diabetic Diet Activity: As Tolerated - Discharge Plan *PRESCRIPTION DRUG MONITORING PROGRAM REVIEWED*: No *COPY OF PRESCRIPTION DRUG MONITORING REPORT IN PATIENT GAGE: No Home Medications: Home Meds Aspirin [Adult Low Dose Aspirin EC] 81 mg PO DAILY 05/11/15 [History] Furosemide [Lasix] 40 mg PO DAILY 05/11/15 [History] Levothyroxine 125 mcg PO DAILY 05/11/15 [History] Quinapril [Accupril] 20 mg PO DAILY 05/11/15 [History] Sertraline [Zoloft] 50 mg PO BID 05/11/15 [History] Acetaminophen [Acetaminophen Extra Strength] 1,000 mg PO BID PRN 12/04/18 [ History] Magnesium Oxide [Magnesium] 1,000 mg PO DAILY 12/04/18 [History] Metoprolol Succinate 50 mg PO DAILY 12/04/18 [History] Nystatin 1 applic TOP TID PRN 12/04/18 [History] Cyclobenzaprine HCl 10 mg PO Q8H PRN 09/03/19 [History] glipiZIDE [Glipizide ER] 5 mg PO DAILY 09/03/19 [History] Cefuroxime Axetil [Ceftin] 250 mg PO BID #14 tablet 09/06/19 [Rx] Dexamethasone/Tobramycin [Tobradex Ophth Susp] 2.5 ml EYERT QID #1 bottle [Rx] Potassium Chloride [Klor-Con 10] 20 meq PO DAILY #30 tab.er 09/06/19 [Rx] - Discharge Summary/Plan Comment DC Time >30 min.: No - General Info Date of Service: 09/16/19 Admission Dx/Problem (Free Text: Bilateral Pneumonia PE Functional Status: Reports: Pain Controlled, Tolerating Diet, Ambulating - Review of Systems General: Reports: Fever (low grade), Weakness, Fatigue, Malaise HEENT: Reports: No Symptoms Pulmonary: Reports: Cough, Sputum. Denies: Shortness of Breath Cardiovascular: Reports: Edema. Denies: Chest Pain, Lightheadedness Gastrointestinal: Denies: Abdominal Pain, Nausea, Vomiting Genitourinary: Reports: No Symptoms Musculoskeletal: Reports: No Symptoms Skin: Reports: No Symptoms Neurological: Reports: Weakness - Patient Data Vitals - Most Recent: Last Vital Signs Temp 96.6 F 09/16/19 07:41 Pulse 74 09/16/19 07:41 Resp 20 09/16/19 07:41 BP 118/63 09/16/19 07:41 Pulse Ox 99 09/16/19 07:41 Weight - Most Recent: 318 lb Lab Results - Last 24 hrs: Laboratory Results - last 24 hr 09/16/19 09/16/19 09/16/19 Range/Units 06:50 06:50 06:50 WBC 8.6 (5.0-10.0) 10^3/uL RBC 4.12 (4.00-5.50) 10^6/uL Hgb 13.5 (12.0-16.0) g/dL Hct 42.6 (37.0-47.0) % MCV 103.4 H (82.0-94.0) fL MCH 32.8 H (27.0-32.0) pg MCHC 31.7 L (33.0-38.0) g/dL RDW Coeff of Ronan 14.0 (11.0-15.0) % Plt Count 187 (150-400) 10^3/uL Neut % (Auto) 65.4 (35-85) % Lymph % (Auto) 16.7 (10-55) % [place] % (Auto) 11.5 (0-16) % Eos % (Auto) 5.6 H (0-5) % Baso % (Auto) 0.8 (0-3) % Neut # (Auto) 5.63 (1.80-7.00) 10^3/uL Lymph # (Auto) 1.44 (1.00-4.80) 10^3/uL [place] # (Auto) 0.99 H (0.00-0.80) 10^3/uL Eos # (Auto) 0.48 H (0.00-0.45) 10^3/uL Baso # (Auto) 0.07 10^3/uL PT 11.4 (9.7-12.3) SEC INR 1.11 (0.92-1.18) Sodium 142 (136-145) mEq/L Potassium 5.0 (3.5-5.0) mEq/L Chloride 104 (98-106) mEq/L Carbon Dioxide 30 (21-32) mmol/L BUN 21 H (7-18) mg/dL Creatinine 1.4 H (0.6-1.0) mg/dL Est Cr Clr Drug Dosing 26.92 mL/min Estimated GFR (MDRD) 36 L (>=60) mL/min Glucose 126 H (75-99) mg/dL Calcium 8.9 (8.4-10.1) mg/dL Total Bilirubin 0.5 (0.0-1.0) mg/dL AST 26 (15-37) U/L ALT 13 (12-78) U/L Alkaline Phosphatase 106 (46-116) U/L Total Protein 7.4 (6.4-8.2) g/dL Albumin 2.8 L (3.4-5.0) g/dL PATRICIO Results - Last 24 hrs: Microbiology 09/13/19 18:45 Aerobic Blood Culture - Preliminary Blood - Venous - Lab Draw NO GROWTH AFTER 2 DAYS Anaerobic Blood Culture - Preliminary NO GROWTH AFTER 2 DAYS 09/13/19 18:40 Aerobic Blood Culture - Preliminary Blood - Venous NO GROWTH AFTER 2 DAYS Anaerobic Blood Culture - Preliminary NO GROWTH AFTER 2 DAYS Med Orders - Current: Current Medications Discontinued Medications Acetaminophen (Tylenol) 650 mg PO Q4H PRN PRN Reason: Pain (Mild 1-3)/fever Albuterol/Ipratropium (Duoneb 3.0-0.5 Mg/3 Ml) 3 ml INH ONETIME ONE Stop: 09/13/19 15:16 Last Admin: 09/13/19 15:16 Dose: 3 ml Albuterol/Ipratropium (Duoneb 3.0-0.5 Mg/3 Ml) 3 ml NEB QID [facility] Last Admin: 09/16/19 07:32 Dose: 3 ml Apixaban (Eliquis) 10 mg PO BID [facility] Last Admin: 09/16/19 07:33 Dose: 10 mg Cyclobenzaprine HCl (Flexeril) 10 mg PO Q8H PRN PRN Reason: Spasms Docusate Sodium (Colace) 100 mg PO BID PRN PRN Reason: Constipation Furosemide (Lasix) 40 mg IVPUSH Q24H [facility] Last Admin: 09/14/19 17:19 Dose: 40 mg Furosemide (Lasix) 40 mg IVPUSH DAILY [facility] Last Admin: 09/16/19 07:32 Dose: 40 mg Glipizide (Glucotrol Xl) 5 mg PO DAILY [facility] Last Admin: 09/16/19 07:32 Dose: 5 mg Levofloxacin/Dextrose 500 mg/ (Premix) 100 mls @ 100 mls/hr IV Q24H [facility] Last Admin: 09/13/19 19:07 Dose: Not Given Levofloxacin/Dextrose 500 mg/ (Premix) 100 mls @ 100 mls/hr IV Q24H ONE Stop: 09/13/19 20:14 Last Admin: 09/13/19 19:02 Dose: 100 mls/hr Levofloxacin/Dextrose (Levaquin In D5w 250 Mg/50 Ml) 50 mls @ 50 mls/hr IV Q24H [facility] Last Admin: 09/15/19 18:50 Dose: 50 mls/hr Iopamidol (Isovue-370 (76%)) 100 ml IVPUSH ONETIME ONE Stop: 09/13/19 15:15 Last Admin: 09/13/19 15:50 Dose: 100 ml Levothyroxine Sodium (Levothyroxine) 125 mcg PO DAILY [facility] Last Admin: 09/16/19 07:33 Dose: 125 mcg Magnesium Oxide (Magnesium Oxide) 1,000 mg PO DAILY [facility] Last Admin: 09/16/19 07:32 Dose: 1,000 mg Metoprolol Succinate (Toprol Xl) 50 mg PO DAILY [facility] Last Admin: 09/16/19 07:33 Dose: 50 mg Nystatin (Nystop) 0 gm TOP TID PRN PRN Reason: Rash Potassium Chloride (Klor-Con 10) 20 meq PO DAILY [facility] Last Admin: 09/16/19 07:32 Dose: 20 meq Sertraline HCl (Zoloft) 50 mg PO BID [facility] Last Admin: 09/16/19 07:32 Dose: 50 mg Sodium Chloride (Saline Flush) 10 ml FLUSH ASDIRECTED PRN PRN Reason: Keep Vein Open Tobramycin/Dexamethasone (Tobradex Ophth Susp) 0 ml EYERT QID [facility] Last Admin: 09/14/19 17:20 Dose: Not Given - Exam Quality Assessment: Reports: Supplemental Oxygen General: Reports: Alert, Oriented HEENT: Reports: Mucous Membr. Moist/[place] Neck: Reports: Supple Lungs: Reports: Decreased Breath Sounds, Crackles Cardiovascular: Reports: Regular Rate, Regular Rhythm GI/Abdominal Exam: Normal Bowel Sounds, Soft, Non-Tender Extremities: Normal Inspection, Pedal Edema (1+) Skin: Reports: Warm, Dry Neurological: Reports: No New Focal Deficit
== END 2019-09-16 09:06 | disposition swing bed (61) | DRG 175 ==
LOC: CC.FCMC 14:36 → CC.ACU 14:36 → CC.MS 17:07 → UNDOADMIN 17:07 → CC.MS 18:03
PROVIDERS: ADMIT Physician Assistant Medical; ATTEND Family Medicine
DX: I26.99 Other pulmonary embolism without acute cor pulmonale (principal); J18.9 Pneumonia, unspecified organism; I48.92 Unspecified atrial flutter; E87.6 Hypokalemia; E83.42 Hypomagnesemia; G89.29 Other chronic pain; M54.5 Low back pain; K59.00 Constipation, unspecified; F32.9 Major depressive disorder, single episode, unspecified; K21.9 Gastro-esophageal reflux disease without esophagitis; E87.5 Hyperkalemia; E03.9 Hypothyroidism, unspecified; N32.81 Overactive bladder; M19.90 Unspecified osteoarthritis, unspecified site; E11.9 Type 2 diabetes mellitus without complications; F41.9 Anxiety disorder, unspecified; I10 Essential (primary) hypertension; E78.5 Hyperlipidemia, unspecified; I87.2 Venous insufficiency (chronic) (peripheral); E66.01 Morbid (severe) obesity due to excess calories; Z96.659 Presence of unspecified artificial knee joint; Z96.649 Presence of unspecified artificial hip joint; Z79.82 Long term (current) use of aspirin; Z79.84 Long term (current) use of oral hypoglycemic drugs; Z79.890 Hormone replacement therapy; Z79.899 Other long term (current) drug therapy; Z88.5 Allergy status to narcotic agent; Z87.440 Personal history of urinary (tract) infections; Z90.49 Acquired absence of other specified parts of digestive tract; Z98.49 Cataract extraction status, unspecified eye; Z99.81 Dependence on supplemental oxygen
CPT/HCPCS: 36415; 71046; 71275; 80048; 80053; 83605; 83735; 83880; 85025; 85379; 85610; 86140; 87040; 87804; 94640; 99211; A9270-GY; J1940; J1956; J7620-GY; Q9967

== ENCOUNTER 2019-09-16 08:49 | Inpatient (IN) | payer MEDICARE, OTHER ==
[2019-09-16] MEDS ORDERED: Cyclobenzaprine 10 MG Tab PO PRN (10:26)
[2019-09-16] MEDS ORDERED: Docusate Sodium 100 MG Cap PO PRN (10:26)
[2019-09-16] MEDS ORDERED: Acetaminophen 325 MG Tab PO PRN (10:26)
[2019-09-16] MEDS ORDERED: Sodium Chloride 0.9% 10 ML Syringe FLUSH PRN ×2 (10:26)
[2019-09-16] MEDS: Albuterol/Ipratropium 3.0-0.5 MG/3 ML Neb Soln NEB SCH ×3 (11:26→19:28)
[2019-09-16] MEDS: Levofloxacin/Dextrose 5%-Water 50 ML IV SCH (17:30)
[2019-09-16] MEDS: Sertraline 25 MG Tab PO SCH (19:27)
[2019-09-16] MEDS: Apixaban 5 MG Tab PO SCH (19:27)
[2019-09-17] MEDS: Levothyroxine 125 MCG Tab PO SCH (06:43)
[2019-09-17] MEDS: Albuterol/Ipratropium 3.0-0.5 MG/3 ML Neb Soln NEB SCH ×4 (08:38→19:30)
[2019-09-17] MEDS: Furosemide 40 MG/4 ML VIAL IVPUSH SCH (08:38)
[2019-09-17] MEDS: Sertraline 25 MG Tab PO SCH ×2 (08:45→19:29)
[2019-09-17] MEDS: glipiZIDE 5 MG Tab.ER PO SCH (08:45)
[2019-09-17] MEDS: Metoprolol Succinate 25 MG Tab.ER PO SCH (08:45)
[2019-09-17] MEDS: Apixaban 5 MG Tab PO SCH ×2 (08:45→19:29)
[2019-09-17] MEDS: Potassium Chloride 10 MEQ Tab.ER PO SCH (08:46)
[2019-09-17] MEDS: Levofloxacin/Dextrose 5%-Water 50 ML IV SCH (18:42)
[2019-09-18] MEDS: Levothyroxine 125 MCG Tab PO SCH (06:27)
[2019-09-18] MEDS: Furosemide 40 MG/4 ML VIAL IVPUSH SCH (07:55)
[2019-09-18] MEDS: Sertraline 25 MG Tab PO SCH ×2 (07:56→19:56)
[2019-09-18] MEDS: Metoprolol Succinate 25 MG Tab.ER PO SCH (07:56)
[2019-09-18] MEDS: Apixaban 5 MG Tab PO SCH ×2 (07:56→19:56)
[2019-09-18] MEDS: glipiZIDE 5 MG Tab.ER PO SCH (07:56)
[2019-09-18] MEDS: Albuterol/Ipratropium 3.0-0.5 MG/3 ML Neb Soln NEB SCH ×4 (07:56→19:56)
[2019-09-18] MEDS: Potassium Chloride 10 MEQ Tab.ER PO SCH (07:56)
--- NOTE | 2019-09-18 12:58 | PCM.PN ---
- General Info Date of Service: 09/18/19 - Review of Systems General: Reports: No Symptoms. Denies: Fever HEENT: Reports: No Symptoms Pulmonary: Reports: No Symptoms. Denies: Shortness of Breath, Wheezing Cardiovascular: Reports: No Symptoms. Denies: Chest Pain Gastrointestinal: Reports: No Symptoms. Denies: Abdominal Pain, Nausea, Vomiting Genitourinary: Reports: Other (noticed pink tinged urine on pts diaper) Musculoskeletal: Reports: No Symptoms. Denies: Neck Pain, Back Pain Skin: Reports: No Symptoms - Patient Data Vitals - Most Recent: Last Vital Signs Temp 36.3 C 09/18/19 08:00 Pulse 76 09/18/19 08:00 Resp 20 09/18/19 08:00 BP 125/57 L 09/18/19 08:00 Pulse Ox 99 09/18/19 08:00 Weight - Most Recent: 135.715 kg Lab Results Last 24 Hours: Laboratory Results - last 24 hr 09/18/19 09/18/19 09/18/19 Range/Units 12:01 12:01 12:01 WBC 8.0 (5.0-10.0) 10^3/uL RBC 4.33 (4.00-5.50) 10^6/uL Hgb 14.0 (12.0-16.0) g/dL Hct 44.3 (37.0-47.0) % MCV 102.3 H (82.0-94.0) fL MCH 32.3 H (27.0-32.0) pg MCHC 31.6 L (33.0-38.0) g/dL RDW Coeff of Ronan 13.9 (11.0-15.0) % Plt Count 180 (150-400) 10^3/uL Neut % (Auto) 66.9 (35-85) % Lymph % (Auto) 16.5 (10-55) % [place] % (Auto) 9.8 (0-16) % Eos % (Auto) 4.4 (0-5) % Baso % (Auto) 2.4 (0-3) % Neut # (Auto) 5.38 (1.80-7.00) 10^3/uL Lymph # (Auto) 1.33 (1.00-4.80) 10^3/uL Weld # (Auto) 0.79 (0.00-0.80) 10^3/uL Eos # (Auto) 0.35 (0.00-0.45) 10^3/uL Baso # (Auto) 0.19 10^3/uL PT 11.8 (9.7-12.3) SEC INR 1.16 (0.92-1.18) Sodium 141 (136-145) mEq/L Potassium 4.7 (3.5-5.0) mEq/L Chloride 103 (98-106) mEq/L Carbon Dioxide 33 H (21-32) mmol/L BUN 25 H (7-18) mg/dL Creatinine 1.5 H (0.6-1.0) mg/dL Est Cr Clr Drug Dosing 23.09 mL/min Estimated GFR (MDRD) 33 L (>=60) mL/min Glucose 153 H D (75-99) mg/dL Calcium 9.2 (8.4-10.1) mg/dL Med Orders - Current: Current Medications Acetaminophen (Tylenol) 650 mg PO Q4H PRN PRN Reason: Pain (Mild 1-3)/fever Albuterol/Ipratropium (Duoneb 3.0-0.5 Mg/3 Ml) 3 ml NEB QID [facility] Last Admin: 09/18/19 11:58 Dose: 3 ml Apixaban (Eliquis) 10 mg PO BID [facility] Last Admin: 09/18/19 07:56 Dose: 10 mg Cyclobenzaprine HCl (Flexeril) 10 mg PO Q8H PRN PRN Reason: Spasms Docusate Sodium (Colace) 100 mg PO BID PRN PRN Reason: Constipation Furosemide (Lasix) 40 mg IVPUSH DAILY [facility] Last Admin: 09/18/19 07:55 Dose: 40 mg Glipizide (Glucotrol Xl) 5 mg PO DAILY [facility] Last Admin: 09/18/19 07:56 Dose: 5 mg Levofloxacin/Dextrose (Levaquin In D5w 250 Mg/50 Ml) 50 mls @ 50 mls/hr IV Q24H [facility] Last Admin: 09/17/19 18:42 Dose: 50 mls/hr Levothyroxine Sodium (Levothyroxine) 125 mcg PO ACBREAKFAST [facility] Last Admin: 09/18/19 06:27 Dose: 125 mcg Magnesium Oxide (Magnesium Oxide) 1,000 mg PO DAILY [facility] Last Admin: 09/18/19 07:56 Dose: 1,000 mg Metoprolol Succinate (Toprol Xl) 50 mg PO DAILY [facility] Last Admin: 09/18/19 07:56 Dose: 50 mg Nystatin (Nystop) 0 gm TOP TID PRN PRN Reason: Rash Potassium Chloride (Klor-Con 10) 20 meq PO DAILY [facility] Last Admin: 09/18/19 07:56 Dose: 20 meq Sertraline HCl (Zoloft) 50 mg PO BID [facility] Last Admin: 09/18/19 07:56 Dose: 50 mg Sodium Chloride (Saline Flush) 10 ml FLUSH ASDIRECTED PRN PRN Reason: Keep Vein Open Sodium Chloride (Saline Flush) 10 ml FLUSH ASDIRECTED PRN PRN Reason: Keep Vein Open - Exam General: Alert, Oriented Neck: Supple Lungs: Clear to Auscultation, Normal Respiratory Effort Cardiovascular: Regular Rate, Regular Rhythm, Murmurs GI/Abdominal Exam: Soft, Non-Tender Back Exam: Normal Inspection, Full Range of Motion Extremities: Normal Inspection, Normal Range of Motion, Non-Tender, Normal Capillary Refill Peripheral Pulses: 2+: Radial (L) Skin: Warm, Dry, Intact Neurological: No New Focal Deficit Psy/Mental Status: Alert, Normal Affect, Normal Mood Sepsis Event Note - Evaluation Sepsis Screening Result: No Definite Risk - Focused Exam Vital Signs: Vital Signs Temp Pulse Pulse Resp BP BP Pulse Ox 09/18/19 08:00 36.3 C 76 20 125/57 L 99 09/18/19 07:56 76 125/57 L Date Exam was Performed: 09/18/19 Time Exam was Performed: 12:53 - Problem List Review Problem List Initiated/Reviewed/Updated: Yes - My Orders Last 24 Hours: My Active Orders 09/18/19 12:01 UA RFX PATRICIO AND CULT IF INDIC [URIN] Stat - Plan Plan:: pt has no c/o abd pain, no urinary frequency or burning, no back pain, advised had a "cyst rupture" in the past and had similar sx before, no fever. cbc, cmp, PT/PTT were collected and does not show any change from pts baseline from this admission, UA is pending, will continue treatment plan and monitor possible hematuria, still waiting on a UA to be collected and resulted, changes to tx plan will be based on data collected and resulted.
[2019-09-18] MEDS: Levofloxacin/Dextrose 5%-Water 50 ML IV SCH (17:41)
[2019-09-19] MEDS: Levothyroxine 125 MCG Tab PO SCH (06:43)
[2019-09-19] MEDS: Furosemide 40 MG/4 ML VIAL IVPUSH SCH (08:16)
[2019-09-19] MEDS: Potassium Chloride 10 MEQ Tab.ER PO SCH (08:17)
[2019-09-19] MEDS: Sertraline 25 MG Tab PO SCH ×2 (08:17→19:21)
[2019-09-19] MEDS: Albuterol/Ipratropium 3.0-0.5 MG/3 ML Neb Soln NEB SCH ×4 (08:17→19:21)
[2019-09-19] MEDS: glipiZIDE 5 MG Tab.ER PO SCH (08:17)
[2019-09-19] MEDS: Apixaban 5 MG Tab PO SCH ×2 (08:17→19:21)
[2019-09-19] MEDS: Metoprolol Succinate 25 MG Tab.ER PO SCH (08:17)
[2019-09-19] MEDS: Nystatin Topical Powder 15 GM Bottle TOP PRN ×2 (13:09→20:49)
[2019-09-19] MEDS: Levofloxacin/Dextrose 5%-Water 50 ML IV SCH (17:39)
--- NOTE | 2019-09-19 21:24 | PCM.PN ---
- General Info Date of Service: 09/19/19 Admission Dx/Problem (Free Text): Pneumonia Functional Status: Reports: Pain Controlled, Tolerating Diet, Ambulating - Review of Systems General: Reports: Weakness, Fatigue HEENT: Reports: No Symptoms Pulmonary: Reports: Shortness of Breath, Cough Cardiovascular: Reports: Edema. Denies: Chest Pain, Lightheadedness Gastrointestinal: Denies: Abdominal Pain, Nausea, Vomiting Genitourinary: Reports: Hematuria Skin: Reports: Rash - Patient Data Vitals - Most Recent: Last Vital Signs Temp 98.3 F 09/19/19 20:00 Pulse 80 09/19/19 20:00 Resp 20 09/19/19 20:00 BP 120/62 09/19/19 20:00 Pulse Ox 94 L 09/19/19 20:00 Weight - Most Recent: 299 lb 3.2 oz Robert Results Last 24 Hours: Microbiology 09/18/19 12:01 Urine Culture - Preliminary Urine, Voided NO GROWTH AFTER 1 DAY Med Orders - Current: Current Medications Acetaminophen (Tylenol) 650 mg PO Q4H PRN PRN Reason: Pain (Mild 1-3)/fever Albuterol/Ipratropium (Duoneb 3.0-0.5 Mg/3 Ml) 3 ml NEB QID [facility] Last Admin: 09/19/19 19:21 Dose: 3 ml Apixaban (Eliquis) 10 mg PO BID [facility] Last Admin: 09/19/19 19:21 Dose: 10 mg Cyclobenzaprine HCl (Flexeril) 10 mg PO Q8H PRN PRN Reason: Spasms Docusate Sodium (Colace) 100 mg PO BID PRN PRN Reason: Constipation Furosemide (Lasix) 40 mg IVPUSH DAILY [facility] Last Admin: 09/19/19 08:16 Dose: 40 mg Glipizide (Glucotrol Xl) 5 mg PO DAILY [facility] Last Admin: 09/19/19 08:17 Dose: 5 mg Levofloxacin/Dextrose (Levaquin In D5w 250 Mg/50 Ml) 50 mls @ 50 mls/hr IV Q24H [facility] Last Admin: 09/19/19 17:39 Dose: 50 mls/hr Levothyroxine Sodium (Levothyroxine) 125 mcg PO ACBREAKFAST [facility] Last Admin: 09/19/19 06:43 Dose: 125 mcg Magnesium Oxide (Magnesium Oxide) 1,000 mg PO DAILY [facility] Last Admin: 09/19/19 08:16 Dose: 1,000 mg Metoprolol Succinate (Toprol Xl) 50 mg PO DAILY [facility] Last Admin: 09/19/19 08:17 Dose: 50 mg Nystatin (Nystop) 0 gm TOP TID PRN PRN Reason: Rash Last Admin: 09/19/19 20:49 Dose: 1 applic Potassium Chloride (Klor-Con 10) 20 meq PO DAILY [facility] Last Admin: 09/19/19 08:17 Dose: 20 meq Sertraline HCl (Zoloft) 50 mg PO BID [facility] Last Admin: 09/19/19 19:21 Dose: 50 mg Sodium Chloride (Saline Flush) 10 ml FLUSH ASDIRECTED PRN PRN Reason: Keep Vein Open Sodium Chloride (Saline Flush) 10 ml FLUSH ASDIRECTED PRN PRN Reason: Keep Vein Open - Exam General: Alert, Oriented HEENT: Mucous Membr. Moist/[place] Neck: Supple Lungs: Decreased Breath Sounds Cardiovascular: Regular Rate, Regular Rhythm GI/Abdominal Exam: Normal Bowel Sounds, Soft, Non-Tender (Female) Exam: Other (patient noted to have 2 cm cracked open area between labia majora and labia minor. No obvious bleeding noted) Skin: Other (significant redness, warmth and odor noted to abdominal and vaginal folds ) Sepsis Event Note - Evaluation Sepsis Screening Result: No Definite Risk - Focused Exam Vital Signs: Vital Signs Temp Pulse Resp BP Pulse Ox 09/19/19 20:00 98.3 F 80 20 120/62 94 L 09/19/19 18:23 98.4 F 85 20 117/64 92 L Date Exam was Performed: 09/19/19 Time Exam was Performed: 21:18 - Problem List & Annotations (1) Pneumonia SNOMED Code(s): 258999386 Code(s): J18.9 - PNEUMONIA, UNSPECIFIED ORGANISM Status: Acute Priority: High Current Visit: Yes Qualifiers: Pneumonia type: due to other aerobic Gram-negative bacteria Laterality: bilateral Lung location: lower lobe of lung Qualified Code(s): J15.6 - Pneumonia due to other Gram-negative bacteria (2) Yeast infection of the skin SNOMED Code(s): 84608110 Code(s): B37.2 - CANDIDIASIS OF SKIN AND NAIL Status: Acute Priority: High Current Visit: Yes (3) Hematuria SNOMED Code(s): 25033602 Code(s): R31.9 - HEMATURIA, UNSPECIFIED Status: Acute Priority: High Current Visit: Yes Qualifiers: Hematuria type: gross Qualified Code(s): R31.0 - Gross hematuria - Problem List Review Problem List Initiated/Reviewed/Updated: Yes - Assessment Assessment:: Pneumonia Yeast infection of the skin Hematuria - Plan Plan:: pt has no c/o abd pain, no urinary frequency or burning, no back pain, advised had a "cyst rupture" in the past and had similar sx before, no fever. cbc, cmp, PT/PTT were collected and does not show any change from pts baseline from this admission, UA is pending, will continue treatment plan and monitor possible hematuria, still waiting on a UA to be collected and resulted, changes to tx plan will be based on data collected and resulted. 09-19-2019 Was asked to see patient in regards to hematuria. UA was collected yesterday as well as labs. UA does have small amount of WBC, large amount of blood. Urine culture preliminary report shows no growth. Vaginal/idonte area exam done today. Has cracked, open sore to labia, no obvious bleeding noted. Denies any burning with urination or pain to the dionte area. Has redness, discharge and foul odor to the abdominal folds. Labs yesterday were normal. Patient has been on Eliquis since diagnosed with bilateral PE. Will await full culture. May need to proceed with renal/bladder ultrasound. Will discuss with Dr. Martinez in am.
[2019-09-20] MEDS: Levothyroxine 125 MCG Tab PO SCH (06:52)
[2019-09-20] MEDS: Furosemide 40 MG/4 ML VIAL IVPUSH SCH (08:15)
[2019-09-20] MEDS: Albuterol/Ipratropium 3.0-0.5 MG/3 ML Neb Soln NEB SCH ×4 (08:17→19:41)
[2019-09-20] MEDS: Potassium Chloride 10 MEQ Tab.ER PO SCH (08:17)
[2019-09-20] MEDS: glipiZIDE 5 MG Tab.ER PO SCH (08:17)
[2019-09-20] MEDS: Sertraline 25 MG Tab PO SCH ×2 (08:18→19:42)
[2019-09-20] MEDS: Metoprolol Succinate 25 MG Tab.ER PO SCH (08:19)
[2019-09-20] MEDS: Apixaban 5 MG Tab PO SCH ×3 (08:19→19:42)
[2019-09-20] MEDS: Sodium Chloride 0.65% Nasal Spray 45 ML Bottle NAS SCH ×3 (11:48→19:40)
[2019-09-20] MEDS: Levofloxacin/Dextrose 5%-Water 50 ML IV SCH (17:34)
[2019-09-20] MEDS: Hydrocortisone Acetate 25 MG Supp RECTAL SCH (19:39)
[2019-09-21] MEDS: Levothyroxine 125 MCG Tab PO SCH (06:57)
[2019-09-21] MEDS: Apixaban 5 MG Tab PO SCH ×2 (08:13→19:51)
[2019-09-21] MEDS: Potassium Chloride 10 MEQ Tab.ER PO SCH (08:13)
[2019-09-21] MEDS: Metoprolol Succinate 25 MG Tab.ER PO SCH (08:13)
[2019-09-21] MEDS: Sertraline 25 MG Tab PO SCH ×2 (08:13→19:50)
[2019-09-21] MEDS: glipiZIDE 5 MG Tab.ER PO SCH (08:13)
[2019-09-21] MEDS: Albuterol/Ipratropium 3.0-0.5 MG/3 ML Neb Soln NEB SCH ×4 (08:14→19:51)
[2019-09-21] MEDS: Hydrocortisone Acetate 25 MG Supp RECTAL SCH (08:14)
[2019-09-21] MEDS: Furosemide 40 MG/4 ML VIAL IVPUSH SCH (08:14)
[2019-09-21] MEDS: Sodium Chloride 0.65% Nasal Spray 45 ML Bottle NAS SCH ×4 (08:14→19:51)
[2019-09-21] MEDS: Levofloxacin/Dextrose 5%-Water 50 ML IV SCH (17:42)
[2019-09-22] MEDS: Levothyroxine 125 MCG Tab PO SCH (06:52)
[2019-09-22] MEDS: Albuterol/Ipratropium 3.0-0.5 MG/3 ML Neb Soln NEB SCH ×4 (07:33→19:57)
[2019-09-22] MEDS: Furosemide 40 MG/4 ML VIAL IVPUSH SCH (07:34)
[2019-09-22] MEDS: Metoprolol Succinate 25 MG Tab.ER PO SCH (07:34)
[2019-09-22] MEDS: Sodium Chloride 0.65% Nasal Spray 45 ML Bottle NAS SCH ×4 (07:36→19:58)
[2019-09-22] MEDS: Sertraline 25 MG Tab PO SCH ×2 (07:36→19:57)
[2019-09-22] MEDS: Apixaban 5 MG Tab PO SCH ×2 (07:37→19:57)
[2019-09-22] MEDS: glipiZIDE 5 MG Tab.ER PO SCH (07:37)
[2019-09-22] MEDS: Potassium Chloride 10 MEQ Tab.ER PO SCH (07:37)
[2019-09-22] MEDS: Levofloxacin/Dextrose 5%-Water 50 ML IV SCH (17:37)
[2019-09-23] MEDS: Levothyroxine 125 MCG Tab PO SCH (06:54)
[2019-09-23] MEDS: Furosemide 40 MG/4 ML VIAL IVPUSH SCH (07:25)
[2019-09-23] MEDS: Sertraline 25 MG Tab PO SCH ×2 (07:27→20:00)
[2019-09-23] MEDS: Albuterol/Ipratropium 3.0-0.5 MG/3 ML Neb Soln NEB SCH ×4 (07:27→20:01)
[2019-09-23] MEDS: Metoprolol Succinate 25 MG Tab.ER PO SCH (07:30)
[2019-09-23] MEDS: Potassium Chloride 10 MEQ Tab.ER PO SCH (07:30)
[2019-09-23] MEDS: glipiZIDE 5 MG Tab.ER PO SCH (07:31)
[2019-09-23] MEDS: Apixaban 5 MG Tab PO SCH ×2 (07:31→20:00)
[2019-09-23] MEDS: Sodium Chloride 0.65% Nasal Spray 45 ML Bottle NAS SCH ×4 (07:32→20:00)
--- NOTE | 2019-09-23 13:51 | PN ---
DATE: 09/23/2019 S: Josiane is an 83-year-old female who was initially admitted on the 09/16/2016 with concerns of pneumonia and bilateral PEs. She has been placed in a swing bed care. She states that she is feeling quite well. Does not have any concerns of any shortness of breath presently. She states overall she is feeling much better. Has not been running any fevers, is tolerating diet. Did have some hematuria while she was here, did have a renal bladder ultrasound done, which was negative. She states that she has really not had much for any hematuria recently. Laboratory work has been, otherwise, stable during her stay. O: VITAL SIGNS: Blood pressure 132/68, O2 is 96% to 98% on room air, respiratory rate 18, pulse 76, and temperature 97.9, she is afebrile. GENERAL: Pleasant, cooperative female. She is sitting in her recliner, does not appear to be in any distress. Currently eating lunch. HEENT: Grossly unremarkable. LUNGS: Clear to auscultation. I do not hear any adventitious sounds. CARDIAC: Regular rate and irregular rhythm. The patient has a known history of atrial flutter. ABDOMEN: Soft. Bowel sounds are present. Normoactive. She is morbidly obese. EXTREMITIES: No significant pedal edema is noted. ASSESSMENT: 1. PNEUMONIA, IMPROVING. 2. BILATERAL PULMONARY EMBOLISMS. P: I did discuss with Josiane possibly discharge in the morning. She did verbalize complete understanding, states that she does feel that she will be ready to go home at this point in time. Otherwise, no further changes today. We will continue with Levaquin. She is currently on Eliquis, which we will continue as well. JARROD/CHARISMA /[id number]
[2019-09-23] MEDS: Levofloxacin/Dextrose 5%-Water 50 ML IV SCH (17:36)
[2019-09-24] MEDS: Levothyroxine 125 MCG Tab PO SCH (06:46)
[2019-09-24] MEDS: Apixaban 5 MG Tab PO SCH (07:35)
[2019-09-24] MEDS: Albuterol/Ipratropium 3.0-0.5 MG/3 ML Neb Soln NEB SCH (07:35)
[2019-09-24] MEDS: Sertraline 25 MG Tab PO SCH (07:35)
[2019-09-24] MEDS: Metoprolol Succinate 25 MG Tab.ER PO SCH (07:36)
[2019-09-24] MEDS: Potassium Chloride 10 MEQ Tab.ER PO SCH (07:36)
[2019-09-24] MEDS: glipiZIDE 5 MG Tab.ER PO SCH (07:37)
[2019-09-24] MEDS: Sodium Chloride 0.65% Nasal Spray 45 ML Bottle NAS SCH (07:38)
[2019-09-24] MEDS: Furosemide 40 MG/4 ML VIAL IVPUSH SCH (07:38)
[2019-09-24 07:40] VITALS: BP 120/62; PULSE 73
--- NOTE | 2019-09-24 09:11 | PCM.DCSUM1 ---
Discharge Summary - Hospital Course Free Text/Narrative:: Patient presented initially to clinic to see Femi Caceres for hospital follow up for a UTI. Had been experiencing URI symptoms as well but chest xray at that time was negative. Returned home on Ceftin. At follow up visit, patient still has cough, noting shortness of breath with exertion. Had noted increased edema in her legs so increased her Lasix to BID. Lab done, had elevated WBC, ProBNP and D-Dimer. CTA of chest of was done, showed bilateral pneumonia and bilateral PEs. Admitted to acute inpatient and started on Levaquin and Eliquis. After 3 days, did show respiratory improvement. Transferred to swing bed for ongoing IV antibiotics. Diagnosis: Stroke: No - Discharge Data Discharge Date: 09/24/19 Discharge Disposition: Home, Self-Care 01 Condition: Fair - Referral to Home Health Primary Care Physician: Jose Caceres PA-C - Discharge Diagnosis/Problem(s) (1) Pneumonia SNOMED Code(s): 158980291 ICD Code: J18.9 - PNEUMONIA, UNSPECIFIED ORGANISM Status: Acute Priority : High Qualifiers: Pneumonia type: due to other aerobic Gram-negative bacteria Laterality: bilateral Lung location: lower lobe of lung Qualified Code(s): J15.6 - Pneumonia due to other Gram-negative bacteria (2) Yeast infection of the skin SNOMED Code(s): 09923859 ICD Code: B37.2 - CANDIDIASIS OF SKIN AND NAIL Status: Acute Priority: High (3) Hematuria SNOMED Code(s): 48245384 ICD Code: R31.9 - HEMATURIA, UNSPECIFIED Status: Acute Priority: High Qualifiers: Hematuria type: gross Qualified Code(s): R31.0 - Gross hematuria - Patient Summary/Data Complications: none Consults: Consultations 09/16/19 10:28 Consult to Physical Therapy [PT Evaluation and Treatment] [CONS] Routine Hospital Course: Patient is overall doing better. She admits to only minimal shortness of breath with ambulation, feels good at rest. Oxygen sats have been good on room air. She developed hematuria since starting Eliquis. Renal bladder ultrasound is negative. Does have small linear cut to labia but no active bleeding noted. Today, on discharge, bleeding has lessened. UA was negative. Had one bloody nose as well but started on saline spray and has improved. Had had 10 days of 10 mg BID of Eliquis and will be reduced now to 5 mg BID. Continue Levaquin for another 7 days. Follow up with Femi Caceres in 7 days. If continues to have hematuria, may need further work up. - Patient Instructions Diet: Diabetic Diet Activity: As Tolerated - Discharge Plan *PRESCRIPTION DRUG MONITORING PROGRAM REVIEWED*: No *COPY OF PRESCRIPTION DRUG MONITORING REPORT IN PATIENT GAGE: No Prescriptions/Med Rec: Albuterol/Ipratropium [DuoNeb 3.0-0.5 MG/3 ML] 3 ml NEB QID #1 box Apixaban [Eliquis] 5 mg PO BID #60 tablet levoFLOXacin [Levaquin] 250 mg PO DAILY #7 tab Home Medications: Home Meds Aspirin [Adult Low Dose Aspirin EC] 81 mg PO DAILY 05/11/15 [History] Furosemide [Lasix] 40 mg PO DAILY 05/11/15 [History] Levothyroxine 125 mcg PO DAILY 05/11/15 [History] Quinapril [Accupril] 20 mg PO DAILY 05/11/15 [History] Sertraline [Zoloft] 50 mg PO BID 05/11/15 [History] Acetaminophen [Acetaminophen Extra Strength] 1,000 mg PO BID PRN 12/04/18 [ History] Magnesium Oxide [Magnesium] 1,000 mg PO DAILY 12/04/18 [History] Metoprolol Succinate 50 mg PO DAILY 12/04/18 [History] Nystatin 1 applic TOP TID PRN 12/04/18 [History] Cyclobenzaprine HCl 10 mg PO Q8H PRN 09/03/19 [History] glipiZIDE [Glipizide ER] 5 mg PO DAILY 09/03/19 [History] Potassium Chloride [Klor-Con 10] 20 meq PO DAILY #30 tab.er 09/06/19 [Rx] Albuterol/Ipratropium [DuoNeb 3.0-0.5 MG/3 ML] 3 ml NEB QID #1 box 09/24/19 [Rx] Apixaban [Eliquis] 5 mg PO BID #60 tablet 09/24/19 [Rx] levoFLOXacin [Levaquin] 250 mg PO DAILY #7 tab 09/24/19 [Rx] Patient Handouts: Pulmonary Embolism, Community-Acquired Pneumonia, Adult Referrals: Jose Caceres PA-C [Primary Care Provider] - (Follow up with Femi Caceres in one week for recheck) - Discharge Summary/Plan Comment DC Time >30 min.: No - General Info Date of Service: 09/24/19 Admission Dx/Problem (Free Text: Pneumonia Functional Status: Reports: Pain Controlled, Tolerating Diet, Ambulating, Urinating - Review of Systems General: Reports: Weakness, Fatigue. Denies: Fever HEENT: Reports: Rhinitis Pulmonary: Reports: Shortness of Breath, Cough. Denies: Sputum, Wheezing Cardiovascular: Denies: Chest Pain, Lightheadedness Gastrointestinal: Denies: Abdominal Pain, Nausea, Vomiting Genitourinary: Reports: Hematuria Musculoskeletal: Reports: No Symptoms Skin: Reports: No Symptoms Neurological: Reports: Weakness - Patient Data Vitals - Most Recent: Last Vital Signs Temp 96.4 F 09/24/19 08:00 Pulse 73 09/24/19 08:00 Resp 18 09/24/19 08:00 BP 120/62 09/24/19 08:00 Pulse Ox 93 L 09/24/19 08:00 Weight - Most Recent: 285 lb Med Orders - Current: Current Medications Acetaminophen (Tylenol) 650 mg PO Q4H PRN PRN Reason: Pain (Mild 1-3)/fever Albuterol/Ipratropium (Duoneb 3.0-0.5 Mg/3 Ml) 3 ml NEB QID [facility] Last Admin: 09/24/19 07:35 Dose: 3 ml Apixaban (Eliquis) 10 mg PO BID [facility] Last Admin: 09/24/19 07:35 Dose: 10 mg Cyclobenzaprine HCl (Flexeril) 10 mg PO Q8H PRN PRN Reason: Spasms Docusate Sodium (Colace) 100 mg PO BID PRN PRN Reason: Constipation Furosemide (Lasix) 40 mg IVPUSH DAILY [facility] Last Admin: 09/24/19 07:38 Dose: 40 mg Glipizide (Glucotrol Xl) 5 mg PO DAILY [facility] Last Admin: 09/24/19 07:37 Dose: 5 mg Levofloxacin/Dextrose (Levaquin In D5w 250 Mg/50 Ml) 50 mls @ 50 mls/hr IV Q24H [facility] Last Admin: 09/23/19 17:36 Dose: 50 mls/hr Levothyroxine Sodium (Levothyroxine) 125 mcg PO ACBREAKFAST [facility] Last Admin: 09/24/19 06:46 Dose: 125 mcg Magnesium Oxide (Magnesium Oxide) 1,000 mg PO DAILY [facility] Last Admin: 09/24/19 07:37 Dose: 1,000 mg Metoprolol Succinate (Toprol Xl) 50 mg PO DAILY [facility] Last Admin: 09/24/19 07:36 Dose: 50 mg Nystatin (Nystop) 0 gm TOP TID PRN PRN Reason: Rash Last Admin: 09/19/19 20:49 Dose: 1 applic Potassium Chloride (Klor-Con 10) 20 meq PO DAILY [facility] Last Admin: 09/24/19 07:36 Dose: 20 meq Sertraline HCl (Zoloft) 50 mg PO BID [facility] Last Admin: 09/24/19 07:35 Dose: 50 mg Sodium Chloride (Saline Flush) 10 ml FLUSH ASDIRECTED PRN PRN Reason: Keep Vein Open Sodium Chloride (Saline Flush) 10 ml FLUSH ASDIRECTED PRN PRN Reason: Keep Vein Open Sodium Chloride (Sanders Nasal [place]) 0 ml KYLEE QID [facility] Last Admin: 09/24/19 07:38 Dose: 1 spray Discontinued Medications Hydrocortisone Acetate (Anucort-Hc) 25 mg RECTAL BID [facility] Last Admin: 09/21/19 08:14 Dose: 25 mg - Exam General: Reports: Alert, Oriented HEENT: Reports: Mucous Membr. Moist/[place] Neck: Reports: Supple Lungs: Reports: Decreased Breath Sounds Cardiovascular: Reports: Regular Rate, Regular Rhythm GI/Abdominal Exam: Normal Bowel Sounds, Soft, Non-Tender Extremities: Normal Inspection, Pedal Edema (trace) Skin: Reports: Warm, Dry Neurological: Reports: No New Focal Deficit
== END 2019-09-24 11:20 | disposition home or self-care (01) | DRG 175 ==
LOC: CC.MS 08:49 → UNDOADMIN 09:10 → CC.MS 09:10
PROVIDERS: ADMIT Family Medicine; ATTEND Family Medicine
DX: I26.99 Other pulmonary embolism without acute cor pulmonale (principal); J15.6 Pneumonia due to other Gram-negative bacteria; B37.2 Candidiasis of skin and nail; R31.0 Gross hematuria; Z79.82 Long term (current) use of aspirin; Z79.890 Hormone replacement therapy; Z79.899 Other long term (current) drug therapy
CPT/HCPCS: 36415; 76770; 80048; 81001; 85025; 85610; 87086; 94640; 97110-GP; 97116-GP; 97161-GP; A9270-GY; J1940; J1956; J7620-GY

== ENCOUNTER 2019-10-17 12:30 | Emergency (ER) | payer MEDICARE, OTHER ==
--- NOTE | 2019-10-17 13:37 | EDM.PDOC ---
ED HPI GENERAL MEDICAL PROBLEM - General Chief Complaint: General Stated Complaint: bleeding Time Seen by Provider: 10/17/19 13:15 Source of Information: Reports: Patient History Limitations: Reports: No Limitations - History of Present Illness INITIAL COMMENTS - FREE TEXT/NARRATIVE: Has large amount of vaginal bleeding. "It shoots out when I cough" "I have been having it since before teodora. Yesterday I didn't have any." Denies any pain. Has had CT of abdomen which didn't show any cause of bleeding. Has had US of renal and bladder which was normal. She denies any pain with it. Is coughing up thick white sputum. Sats were 98% on admit. Onset: Gradual Location: Reports: Pelvis 0 Pain Score (Numeric/FACES): 0 - Related Data Allergies Allergy/AdvReac Type Severity Reaction Status Date / Time tramadol Allergy Hallucinati Verified 10/17/19 12:34 ons Home Meds: Home Meds Aspirin [Adult Low Dose Aspirin EC] 81 mg PO DAILY 05/11/15 [History] Furosemide [Lasix] 40 mg PO DAILY 05/11/15 [History] Levothyroxine 125 mcg PO DAILY 05/11/15 [History] Quinapril [Accupril] 20 mg PO DAILY 05/11/15 [History] Sertraline [Zoloft] 50 mg PO BID 05/11/15 [History] Acetaminophen [Acetaminophen Extra Strength] 1,000 mg PO BID PRN 12/04/18 [ History] Magnesium Oxide [Magnesium] 1,000 mg PO DAILY 12/04/18 [History] Metoprolol Succinate 50 mg PO DAILY 12/04/18 [History] Nystatin 1 applic TOP TID PRN 12/04/18 [History] Cyclobenzaprine HCl 10 mg PO Q8H PRN 09/03/19 [History] glipiZIDE [Glipizide ER] 5 mg PO DAILY 09/03/19 [History] Potassium Chloride [Klor-Con 10] 20 meq PO DAILY #30 tab.er 09/06/19 [Rx] Albuterol/Ipratropium [DuoNeb 3.0-0.5 MG/3 ML] 3 ml NEB QID #1 box 09/24/19 [Rx] Apixaban [Eliquis] 5 mg PO BID #60 tablet 09/24/19 [Rx] levoFLOXacin [Levaquin] 250 mg PO DAILY #7 tab 09/24/19 [Rx] Past Medical History Cardiovascular History: Reports: Heart Murmur, Hypertension, Other (See Below) Other Cardiovascular History: A FLUTTER Respiratory History: Reports: PE Gastrointestinal History: Reports: GERD, Hemorrhoids, PUD Genitourinary History: Reports: Urinary Incontinence, Other (See Below) Other Genitourinary History: Hematuria [place] GRINDER History: Reports: Endocrine/Metabolic History: Reports: Diabetes, Type II, Hypoparathyroidism Hematologic History: Reports: Anticoagulation Therapy Other Hematologic History: On eliquis Dermatologic History: Reports: Other (See Below) Other Dermatologic History: Yeasty rash under abdominal fold. - Past Surgical History HEENT Surgical History: Reports: Cataract Surgery GI Surgical History: Reports: Appendectomy, Bariatric Procedure, Hernia Repair/ Other Female Surgical History: Reports: Hysterectomy Musculoskeletal Surgical History: Reports: Hip Replacement, Knee Replacement Other Musculoskeletal Surgeries/Procedures:: Bilateral hip, right knee Social & Family History - Family History Family Medical History: Noncontributory - Tobacco Use Smoking Status *Q: Never Smoker Second Hand Smoke Exposure: Yes - Caffeine Use Caffeine Use: Reports: Coffee, Soda - Recreational Drug Use Recreational Drug Use: No - Living Situation & Occupation Living situation: Reports: , with Family (grandson) Occupation: Retired ED ROS GENERAL - Review of Systems Review Of Systems: See Below Constitutional: Denies: Fever, Chills Respiratory: Reports: Cough, Sputum (clear to white.) Cardiovascular: Denies: Chest Pain GI/Abdominal: Denies: Abdominal Pain, Nausea, Vomiting : Reports: Other (vaginal bleeding) Skin: Reports: Other (rash under skin folds of abdomen) ED EXAM, GENERAL - Physical Exam Exam: See Below Exam Limited By: No Limitations General Appearance: Alert, WD/WN Head: Atraumatic Neck: Normal Inspection, Supple Respiratory/Chest: No Respiratory Distress, Other (cough productive of white phlegm.) Cardiovascular: Irregularly Irregular GI/Abdominal: Normal Bowel Sounds, Non-Tender (Female) Exam: Vaginal Bleeding (speculum exam shows gross blood in the vaginal vault. Denies any pain. No obvious site noted. Has had hysterectomy per pt report 47 years ago. Due to body habitus I'm unable to see site of bleeding. Moderate amount of blood noted in vaginal vault.) Extremities: Non-Tender Neurological: Alert, Oriented Skin Exam: Warm, Dry, Intact Course - Vital Signs Last Recorded V/S: Last Vital Signs Temp 98.6 F 10/17/19 12:42 Pulse 62 10/17/19 12:42 Resp 22 H 10/17/19 12:42 BP 92/79 10/17/19 12:42 Pulse Ox 98 10/17/19 12:42 - Orders/Labs/Meds Orders: Active Orders 24 hr Category Date Time Status Pelvis Non OB Ltd [US] Stat Exams 10/17/19 13:39 Taken Transvaginal Non OB [US] Stat Exams 10/17/19 13:39 Taken Sodium Chloride 0.9% [Normal Saline] 500 ml Med 10/17/19 15:30 Active IV ASDIRECTED Medication Orders Sodium Chloride (Normal Saline) 500 mls @ 75 mls/hr IV ASDIRECTED ANDREW Last Admin: 10/17/19 16:16 Dose: 75 mls/hr Labs: Laboratory Tests 10/17/19 10/17/19 10/17/19 Range/Units 14:00 14:00 14:00 WBC 9.3 (5.0-10.0) 10^3/uL RBC 2.33 L (4.00-5.50) 10^6/uL Hgb 7.5 L* (12.0-16.0) g/dL Hct 24.9 L (37.0-47.0) % MCV 106.9 H (82.0-94.0) fL MCH 32.2 H (27.0-32.0) pg MCHC 30.1 L (33.0-38.0) g/dL RDW Coeff of [place] 15.3 H (11.0-15.0) % Plt Count 218 (150-400) 10^3/uL Neut % (Auto) 67.2 (35-85) % Lymph % (Auto) 19.4 (10-55) % [place] % (Auto) 10.6 (0-16) % Eos % (Auto) 2.2 (0-5) % Baso % (Auto) 0.6 (0-3) % Neut # (Auto) 6.22 (1.80-7.00) 10^3/uL Lymph # (Auto) 1.79 (1.00-4.80) 10^3/uL [place] # (Auto) 0.98 H (0.00-0.80) 10^3/uL Eos # (Auto) 0.20 (0.00-0.45) 10^3/uL Baso # (Auto) 0.06 10^3/uL Sodium 138 (136-145) mEq/L Potassium 5.5 H (3.5-5.0) mEq/L Chloride 104 (98-106) mEq/L Carbon Dioxide 23 (21-32) mmol/L BUN 46 H D (7-18) mg/dL Creatinine 2.8 H* (0.6-1.0) mg/dL Est Cr Clr Drug Dosing 12.68 mL/min Estimated GFR (MDRD) 16 L (>=60) mL/min Glucose 175 H D (75-99) mg/dL Calcium 8.4 (8.4-10.1) mg/dL C-Reactive Protein 1.9 H (0.2-0.8) mg/dL Urine Color Yellow (YELLOW) Urine Appearance Clear (CLEAR) Urine pH 5.5 (4.5-8.0) Ur Specific [place] 1.020 (1.003-1.020) Urine Protein Negative (NEGATIVE) mg/dL Urine Glucose (UA) Negative (NEGATIVE) mg/dL Urine Ketones Negative (NEGATIVE) mg/dL Urine Occult Blood Trace-intact H (NEGATIVE) Urine Nitrite Negative (NEGATIVE) Urine Bilirubin Negative (NEGATIVE) Urine Urobilinogen 0.2 (0.2-1.0) EU/dL Ur Leukocyte Esterase Negative (NEGATIVE) Urine RBC 0-5 (0-5) /HPF Urine WBC 0-5 (0-5) /HPF Ur Squamous Epith Cells Occasional H (NOT SEEN) /HPF Urine Bacteria Occasional H (NOT SEEN) /HPF Meds: Medications Generic Name Dose Route Start Last Admin Trade Name Freq PRN Reason Stop Dose Admin Sodium Chloride 500 mls @ 75 mls/hr 10/17/19 15:30 10/17/19 16:16 Normal Saline IV 75 mls/hr ASDIRECTED ANDREW Administration Discontinued Medications Generic Name Dose Route Start Last Admin Trade Name Freq PRN Reason Stop Dose Admin Sodium Chloride 500 mls @ 75 mls/hr 10/17/19 16:15 Normal Saline IV ASDIRECTED ANDREW - Re-Assessments/Exams Free Text/Narrative Re-Assessment/Exam: 10/17/19 15:16 Pelvic US was reviewed with Dr. Martinez as well as pt lab values of HGB of 7.5 gm and creatinine of 2.8. It is noted that her hgb was 14. on September 18. She does feel weak. Will wait for official report from Radiology. 10/17/19 1604 [facility] contacted and salesforce specialist not available due to emergency. 10/17/[address] Owen returned call as hospitalist and they do not have a bed at this time. Discussed this with patient and she would like to try [facility]. Pt continues to have vaginal bleeding. 10/17/2019 1735 [facility] contacted and discussed case with and she suggested to give 1 gm TXA over 30 minutes IV to help stop the bleeding. and that they would accept pt in transfer. Pt will be transferred BLS after TXA is infused. Discussed risks of transfer with pt to include increase in bleeding, worsening of condition and MVC. Risk of staying would include that bleeding would continue and would not be able to stop. Hypotension and worsening of condition. Pt wishes to be transferred. Departure - Departure Time of Disposition: 17:52 Disposition: DC/Tfer to Acute Hospital 02 Condition: Serious Clinical Impression: Vaginal bleeding, Weakness generalized, Acute renal insufficiency Anemia Qualifiers: Anemia type: other cause Other causes of anemia: other cause, not classified Qualified Code(s): D64.89 - Other specified anemias - Discharge Information *PRESCRIPTION DRUG MONITORING PROGRAM REVIEWED*: Not Applicable *COPY OF PRESCRIPTION DRUG MONITORING REPORT IN PATIENT GAGE: Not Applicable Referrals: Joes Caceres PA-C [Primary Care Provider] - Forms: ED Department Discharge Additional Instructions: Transfer BLS to [facility] with NS IV at 100 ml. Sepsis Event Note - Evaluation Sepsis Screening Result: No Definite Risk - Focused Exam Vital Signs: Vital Signs Temp Pulse Resp BP Pulse Ox 10/17/19 12:42 98.6 F 62 22 H 92/79 98 Date Exam was Performed: 10/17/19 Time Exam was Performed: 17:44 - Problem List & Annotations (1) Anemia SNOMED Code(s): 501450565 Code(s): D64.9 - ANEMIA, UNSPECIFIED Status: Acute Priority: High Current Visit: Yes Qualifiers: Anemia type: other cause Other causes of anemia: other cause, not classified Qualified Code(s): D64.89 - Other specified anemias (2) Vaginal bleeding SNOMED Code(s): 316389920, 145780509 Code(s): N93.9 - ABNORMAL UTERINE AND VAGINAL BLEEDING, UNSPECIFIED Status : Acute Priority: High Current Visit: Yes (3) Acute renal insufficiency SNOMED Code(s): 437337162 Code(s): N28.9 - DISORDER OF KIDNEY AND URETER, UNSPECIFIED Status: Acute Priority: Medium Current Visit: Yes - Problem List Review Problem List Initiated/Reviewed/Updated: Yes - My Orders Last 24 Hours: My Active Orders 10/17/19 13:39 Pelvis Non OB Ltd [US] Stat Transvaginal Non OB [US] Stat 10/17/19 15:30 Sodium Chloride 0.9% [Normal Saline] 500 ml IV ASDIRECTED - Assessment/Plan Last 24 Hours: My Active Orders 10/17/19 13:39 Pelvis Non OB Ltd [US] Stat Transvaginal Non OB [US] Stat 10/17/19 15:30 Sodium Chloride 0.9% [Normal Saline] 500 ml IV ASDIRECTED
[2019-10-17] MEDS ORDERED: Sodium Chloride 0.9% 500 ML IV SCH ×2 (15:30→16:15)
[2019-10-17] MEDS ORDERED: Tranexamic Acid 1,000 MG in Sodium Chloride 0.9% 100 ML IV ONE (17:55)
[2019-10-17] MEDS ORDERED: Sodium Chloride 0.9% 100 ML ONE (18:01)
[2019-10-17 18:25] VITALS: BP 148/63; PULSE 85
== END 2019-10-17 18:49 ==
LOC: CC.ED 12:30
DX: N93.9 Abnormal uterine and vaginal bleeding, unspecified (principal); R53.1 Weakness; D64.89 Other specified anemias; N28.9 Disorder of kidney and ureter, unspecified; I10 Essential (primary) hypertension; K21.9 Gastro-esophageal reflux disease without esophagitis; E11.9 Type 2 diabetes mellitus without complications; E20.9 Hypoparathyroidism, unspecified; Z86.711 Personal history of pulmonary embolism; Z90.49 Acquired absence of other specified parts of digestive tract; Z77.22 Contact with and (suspected) exposure to environmental tobacco smoke (acute) (chronic); Z88.8 Allergy status to other drugs, medicaments and biological substances; Z79.82 Long term (current) use of aspirin; Z79.899 Other long term (current) drug therapy; Z79.84 Long term (current) use of oral hypoglycemic drugs; Z79.01 Long term (current) use of anticoagulants
CPT/HCPCS: 36415; 76830; 76857; 80048; 81001; 85025; 86140; 96361; 96365; 99284; 99285-25; J7040; J7050

== ENCOUNTER 2019-10-24 11:17 | Emergency (ER) | payer MEDICARE, OTHER ==
[2019-10-24 11:29] VITALS: BP 120/54; PULSE 84
--- NOTE | 2019-10-24 12:48 | EDM.PDOC ---
ED HPI GENERAL MEDICAL PROBLEM - General Chief Complaint: Genitourinary Problem Stated Complaint: vaginal bleeding Time Seen by Provider: 10/24/19 12:11 Source of Information: Reports: Patient History Limitations: Reports: No Limitations - History of Present Illness INITIAL COMMENTS - FREE TEXT/NARRATIVE: Pt states that she feels "A little fuzzy" She was having trouble with what meds she was supposed to take as she was recently discharged from the hospital in [place] and had several med changes and her grandson hadn't taken her pill packs to the pharmacy to be changed. Home health is supposed to come in for initial visit and eval today. She was admitted to [facility] for vaginal bleeding , anemia and weakness. She did get a unit of PRBC while there. She continues to have some vaginal bleeding which she states they told her would occur for a while. Endometrial biopsy there was negative by pt report. She states that she did not have any bleeding when initially getting up but then when she was up had some bleeding. She states that she feels better on my initial assessment than when she arrived here. Denies any headache or unilateral weakness. Onset: Gradual Associated Symptoms: Denies: Fever/Chills, Headaches - Related Data Allergies Allergy/AdvReac Type Severity Reaction Status Date / Time tramadol Allergy Hallucinati Verified 10/17/19 12:34 ons Home Meds: Home Meds Aspirin [Adult Low Dose Aspirin EC] 81 mg PO DAILY 05/11/15 [History] Furosemide [Lasix] 40 mg PO DAILY 05/11/15 [History] Levothyroxine 125 mcg PO DAILY 05/11/15 [History] Quinapril [Accupril] 20 mg PO DAILY 05/11/15 [History] Sertraline [Zoloft] 50 mg PO BID 05/11/15 [History] Acetaminophen [Acetaminophen Extra Strength] 1,000 mg PO BID PRN 12/04/18 [ History] Magnesium Oxide [Magnesium] 1,000 mg PO DAILY 12/04/18 [History] Metoprolol Succinate 50 mg PO DAILY 12/04/18 [History] Nystatin 1 applic TOP TID PRN 12/04/18 [History] Cyclobenzaprine HCl 10 mg PO Q8H PRN 09/03/19 [History] glipiZIDE [Glipizide ER] 5 mg PO DAILY 12/10/19 [History] Potassium Chloride [Klor-Con 10] 20 meq PO DAILY #30 tab.er 09/06/19 [Rx] Albuterol/Ipratropium [DuoNeb 3.0-0.5 MG/3 ML] 3 ml NEB QID #1 box 09/24/19 [Rx] Apixaban [Eliquis] 5 mg PO BID #60 tablet 09/24/19 [Rx] levoFLOXacin [Levaquin] 250 mg PO DAILY #7 tab 09/24/19 [Rx] Past Medical History Cardiovascular History: Reports: Heart Murmur, Hypertension, Other (See Below) Other Cardiovascular History: A FLUTTER Respiratory History: Reports: PE Gastrointestinal History: Reports: GERD, Hemorrhoids, PUD Genitourinary History: Reports: Urinary Incontinence Other Genitourinary History: Hematuria 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 - Past Surgical History HEENT Surgical History: Reports: Cataract Surgery GI Surgical History: Reports: Appendectomy, Bariatric Procedure, Hernia Repair/ Other Female Surgical History: Reports: Other (See Below) Other Female Surgeries/Procedures: biopsy Musculoskeletal Surgical History: Reports: Hip Replacement, Knee Replacement Other Musculoskeletal Surgeries/Procedures:: Bilateral hip, right knee Social & Family History - Family History Family Medical History: Noncontributory - Tobacco Use Smoking Status *Q: Never Smoker - Caffeine Use Caffeine Use: Reports: None - Recreational Drug Use Recreational Drug Use: No - Living Situation & Occupation Living situation: Reports: , with Family (grandson) Occupation: Retired ED ROS GENERAL - Review of Systems Review Of Systems: See Below Constitutional: Reports: Weakness. Denies: Fever, Chills, Malaise HEENT: Reports: Vision Change (vision "seemed fuzzy" for a while.) Respiratory: Reports: No Symptoms Cardiovascular: Reports: Edema (chronic) GI/Abdominal: Reports: No Symptoms : Reports: Other (vaginal bleeding.) Musculoskeletal: Reports: No Symptoms Skin: Reports: No Symptoms ED EXAM, GENERAL - Physical Exam Exam: See Below Exam Limited By: No Limitations General Appearance: Alert, WD/WN, No Apparent Distress Ears: Normal External Exam, Normal Canal, Normal TMs Throat/Mouth: Normal Inspection, Normal Oropharynx, No Airway Compromise Head: Atraumatic, Normocephalic Neck: Supple, Non-Tender Respiratory/Chest: No Respiratory Distress, Rales (to bases which is her baseline.). No: Respiratory Distress, Wheezing Cardiovascular: Regular Rate, Rhythm, No Edema (trace of edema to feet bilaterally.) GI/Abdominal: Normal Bowel Sounds, Soft, Non-Tender Extremities: Non-Tender, Normal Capillary Refill Neurological: Alert, Oriented, CN II-XII Intact Skin Exam: Warm, Dry, Intact Course - Vital Signs Last Recorded V/S: Last Vital Signs Temp 97.2 F 10/24/19 11:18 Pulse 84 10/24/19 11:18 Resp 18 10/24/19 11:18 BP 120/54 L 10/24/19 11:18 Pulse Ox 97 10/24/19 11:18 - Orders/Labs/Meds Labs: Laboratory Tests 10/24/19 10/24/19 Range/Units 11:55 11:55 WBC 6.8 (5.0-10.0) 10^3/uL RBC 2.61 L (4.00-5.50) 10^6/uL Hgb 8.0 L (12.0-16.0) g/dL Hct 26.7 L (37.0-47.0) % MCV 102.3 H (82.0-94.0) fL MCH 30.7 (27.0-32.0) pg MCHC 30.0 L (33.0-38.0) g/dL RDW Coeff of Ronan 15.6 H (11.0-15.0) % Plt Count 165 (150-400) 10^3/uL Neut % (Auto) 65.6 (35-85) % Lymph % (Auto) 18.5 (10-55) % [place] % (Auto) 11.2 (0-16) % Eos % (Auto) 3.7 (0-5) % Baso % (Auto) 1.0 (0-3) % Neut # (Auto) 4.46 (1.80-7.00) 10^3/uL Lymph # (Auto) 1.26 (1.00-4.80) 10^3/uL [place] # (Auto) 0.76 (0.00-0.80) 10^3/uL Eos # (Auto) 0.25 (0.00-0.45) 10^3/uL Baso # (Auto) 0.07 10^3/uL Sodium 140 (136-145) mEq/L Potassium 4.1 D (3.5-5.0) mEq/L Chloride 107 H (98-106) mEq/L Carbon Dioxide 25 (21-32) mmol/L BUN 29 H (7-18) mg/dL Creatinine 1.7 H (0.6-1.0) mg/dL Est Cr Clr Drug Dosing 21.77 mL/min Estimated GFR (MDRD) 29 L (>=60) mL/min Glucose 121 H D (75-99) mg/dL Calcium 8.3 L (8.4-10.1) mg/dL - Re-Assessments/Exams Free Text/Narrative Re-Assessment/Exam: 10/24/19 1230 Discussed with pt the potential need to go to retirement for care and strengthening. She adamantly refused and states that she can take care of herself and her grandson lives with her to help her with what she needs. She is open to home health coming in to see her as previously scheduled. They were contacted and should be there today for admission to home health with PT for strengthening. Demario will take her list of discharge meds and the current pill packs that she has to the drug store this morning to have them repackaged correctly. She has appt with Femi Caceres on Monday for follow up and will keep that appt. Departure - Departure Time of Disposition: 12:44 Disposition: Home, Self-Care 01 Condition: Fair Clinical Impression: Vaginal bleeding Anemia Qualifiers: Anemia type: due to chronic kidney disease Chronic kidney disease stage: unspecified stage Qualified Code(s): N18.9 - Chronic kidney disease, unspecified - Discharge Information *PRESCRIPTION DRUG MONITORING PROGRAM REVIEWED*: Not Applicable *COPY OF PRESCRIPTION DRUG MONITORING REPORT IN PATIENT GAGE: Not Applicable Referrals: Jose Caceres PA-C [Primary Care Provider] - Forms: ED Department Discharge Additional Instructions: Push fluids as much as possible It will take time to get stronger as your hemoglobin is low and takes time to get back to normal take your pills to the pharmacy with your discharge meds from [place] and have them repackage them. Home health should be out today to evaluate you. If not call them recheck with Femi in the clinic as scheduled. Sepsis Event Note - Evaluation Sepsis Screening Result: No Definite Risk - Focused Exam Date Exam was Performed: 10/25/19 Time Exam was Performed: 07:01 - Problem List & Annotations (1) Anemia SNOMED Code(s): 599897423 Code(s): D64.9 - ANEMIA, UNSPECIFIED Status: Acute Priority: High Qualifiers: Anemia type: due to chronic kidney disease Chronic kidney disease stage: unspecified stage Qualified Code(s): N18.9 - Chronic kidney disease, unspecified; D63.1 - Anemia in chronic kidney disease (2) Vaginal bleeding SNOMED Code(s): 974830599, 341349712 Code(s): N93.9 - ABNORMAL UTERINE AND VAGINAL BLEEDING, UNSPECIFIED Status : Acute Priority: Medium - Problem List Review Problem List Initiated/Reviewed/Updated: Yes
== END 2019-10-24 13:00 | disposition home or self-care (01) ==
LOC: CC.ED 11:17
DX: N93.9 Abnormal uterine and vaginal bleeding, unspecified (principal); E11.22 Type 2 diabetes mellitus with diabetic chronic kidney disease; I12.9 Hypertensive chronic kidney disease with stage 1 through stage 4 chronic kidney disease, or unspecified chronic kidney disease; N18.9 Chronic kidney disease, unspecified; D63.1 Anemia in chronic kidney disease; E20.9 Hypoparathyroidism, unspecified; Z88.6 Allergy status to analgesic agent; Z79.82 Long term (current) use of aspirin; Z79.890 Hormone replacement therapy; Z79.84 Long term (current) use of oral hypoglycemic drugs
CPT/HCPCS: 36415; 80048; 85025; 99283; 99284

== ENCOUNTER 2019-10-29 14:12 | Inpatient (IN) | payer MEDICARE, OTHER ==
[2019-10-29 14:30] LABS: CHLORIDE,CL 105 mEq/L (98-106); SODIUM,NA 141 mEq/L (136-145)
[2019-10-29] MEDS ORDERED: Ondansetron 4 MG/2 ML SDV IVPUSH PRN (15:34)
[2019-10-29] MEDS ORDERED: Sodium Chloride 0.9% 10 ML Syringe FLUSH PRN (15:34)
[2019-10-29] MEDS ORDERED: Acetaminophen 325 MG Tab PO PRN (15:34)
[2019-10-29] MEDS ORDERED: Furosemide 20 MG/2 ML VIAL IVPUSH ONE (16:30)
[2019-10-29] MEDS ORDERED: diphenhydrAMINE 50 MG/ML SDV IV ONE (16:30)
[2019-10-29] MEDS ORDERED: Sodium Chloride 0.9% 250 ML IV SCH (16:34)
[2019-10-29] MEDS ORDERED: Nystatin Topical Powder 15 GM Bottle TOP PRN (17:54)
[2019-10-29] MEDS ORDERED: Furosemide 40 MG/4 ML VIAL ONE (19:26)
[2019-10-29] MEDS: Sertraline 25 MG Tab PO SCH (19:28)
[2019-10-29] MEDS: Albuterol/Ipratropium 3.0-0.5 MG/3 ML Neb Soln NEB SCH (19:29)
[2019-10-29] MEDS: Apixaban 5 MG Tab PO SCH (19:29)
[2019-10-30] MEDS: Apixaban 5 MG Tab PO SCH (07:27)
[2019-10-30] MEDS: Sertraline 25 MG Tab PO SCH (07:28)
[2019-10-30] MEDS: Albuterol/Ipratropium 3.0-0.5 MG/3 ML Neb Soln NEB SCH ×2 (07:29→11:33)
[2019-10-30 07:31] VITALS: BP 104/57
[2019-10-30] MEDS ORDERED: glipiZIDE 5 MG Tab.ER PO SCH (08:00)
[2019-10-30] MEDS ORDERED: Levothyroxine 125 MCG Tab PO SCH (08:00)
[2019-10-30] MEDS ORDERED: Furosemide 40 MG Tab PO SCH (08:00)
[2019-10-30] MEDS ORDERED: Lisinopril 10 MG Tab PO SCH (08:00)
[2019-10-30] MEDS ORDERED: Metoprolol Succinate 25 MG Tab.ER PO SCH (08:00)
[2019-10-30 08:42] VITALS: PULSE 67
[2019-10-30] MEDS ORDERED: Ferrous Sulfate 324 MG Tab.EC PO SCH (10:00)
--- NOTE | 2019-10-30 20:00 | PCM.DCSUM1 ---
Discharge Summary - Hospital Course Free Text/Narrative:: Patient presented to the clinic to see Femi Caceres following hospital admission at [facility] after she had presented to [place] with weakness and vaginal bleeding. Her hemoglobin was low at 7.3 at that time, got one unit of blood enroute to [place]. Had further work up at [facility], MRI to rule out malignancy, which was negative. She states they had advised her that definitive treatment could include a hysterectomy but she does not want to have the surgery due to her age. She has had intermittent vaginal bleeding since being placed on Eliquis for bilateral PE. At clinic, patient states each day has felt weaker and more short of breath, especially with exertion. Hemoglobin was 7.5, admitted with orders for 2 units of blood. She did relate that got itchy with transfusion so Benadryl ordered to receive prior to 2 units. Diagnosis: Stroke: No Modified Barrett Scale: No Symptoms at All Modified [place] Scale Score: 0 - Discharge Data Discharge Date: 10/30/19 Discharge Disposition: Home, Self-Care 01 Condition: Good - Referral to Home Health Primary Care Physician: Jose Caceres PA-C - Patient Summary/Data Complications: none Consults: Consultations 10/29/19 15:34 PT Evaluation and Treatment [CONS] Routine Hospital Course: Patient feeling better this am. ADmits to still feeling short of breath with exertion but tolerating well with walker. Did receive 2 units of PRBCs yesterday with Lasix between units. Hemoglobin this am 8.3. Does continue to have vaginal bleeding, passes large clots at times. Relates is to call destination imagination coordinator to determine if plan to have any other surgical intervention, ie. D & C to control bleeding as endometrial biopsy and MRI were negative for cancer. Will be discharged home. Repeat hemoglobin on Monday and follow up with Femi Caceres next week. Start ferrous sulfate BID. Eliquis was reduced to 2.5 mg BID for renal dosing. - Patient Instructions Diet: Usual Diet as Tolerated Activity: As Tolerated Other/Special Instructions: Hemoglobin on Monday - Discharge Plan *PRESCRIPTION DRUG MONITORING PROGRAM REVIEWED*: No *COPY OF PRESCRIPTION DRUG MONITORING REPORT IN PATIENT GAGE: No Prescriptions/Med Rec: Apixaban [Eliquis] 2.5 mg PO BID #60 tablet Ferrous Sulfate 324 mg PO BIDMEALS #60 tab.ec Home Medications: Home Meds Furosemide [Lasix] 40 mg PO DAILY 05/11/15 [History] Levothyroxine 125 mcg PO DAILY 05/11/15 [History] Quinapril [Accupril] 20 mg PO DAILY 05/11/15 [History] Sertraline [Zoloft] 50 mg PO BID 05/11/15 [History] Acetaminophen [Acetaminophen Extra Strength] 1,000 mg PO BID PRN 12/04/18 [ History] Magnesium Oxide [Magnesium] 1,000 mg PO DAILY 12/04/18 [History] Metoprolol Succinate 50 mg PO DAILY 12/04/18 [History] Nystatin 1 applic TOP TID PRN 12/04/18 [History] Cyclobenzaprine HCl 10 mg PO Q8H PRN 09/03/19 [History] glipiZIDE [Glipizide ER] 5 mg PO DAILY 09/03/19 [History] Albuterol/Ipratropium [DuoNeb 3.0-0.5 MG/3 ML] 3 ml NEB QID #1 box 09/24/19 [Rx] Apixaban [Eliquis] 2.5 mg PO BID #60 tablet 10/30/19 [Rx] Ferrous Sulfate 324 mg PO BIDMEALS #60 tab.ec 10/30/19 [Rx] Referrals: Jose Caceres PA-C [Primary Care Provider] - (Follow up with Femi Caceres on ) - Discharge Summary/Plan Comment DC Time >30 min.: No - General Info Date of Service: 10/30/19 Admission Dx/Problem (Free Text: Anemia Functional Status: Reports: Pain Controlled, Tolerating Diet, Ambulating - Review of Systems General: Reports: Weakness, Fatigue HEENT: Reports: Post Nasal Drip, Rhinitis Pulmonary: Reports: Shortness of Breath, Cough, Sputum Cardiovascular: Reports: Edema. Denies: Chest Pain, Lightheadedness Gastrointestinal: Denies: Abdominal Pain, Nausea, Vomiting Genitourinary: Reports: No Symptoms Musculoskeletal: Reports: No Symptoms Skin: Reports: No Symptoms Neurological: Reports: Weakness - Patient Data Vitals - Most Recent: Last Vital Signs Temp 98.1 F 10/30/19 07:30 Pulse 67 10/30/19 08:41 Resp 18 10/30/19 07:30 BP 104/57 L 10/30/19 08:41 Pulse Ox 98 10/30/19 07:30 Weight - Most Recent: 292 lb 14.4 oz Lab Results - Last 24 hrs: Laboratory Results - last 24 hr 10/29/19 10/30/19 10/30/19 Range/Units 15:34 06:55 06:55 Hgb 8.3 L (12.0-16.0) g/dL Hct 26.6 L (37.0-47.0) % Sodium 142 (136-145) mEq/L Potassium 3.8 (3.5-5.0) mEq/L Chloride 107 H (98-106) mEq/L Carbon Dioxide 28 (21-32) mmol/L BUN 30 H (7-18) mg/dL Creatinine 1.7 H (0.6-1.0) mg/dL Est Cr Clr Drug Dosing 17.38 mL/min Estimated GFR (MDRD) 29 L (>=60) mL/min Glucose 97 D (75-99) mg/dL Calcium 7.8 L (8.4-10.1) mg/dL Crossmatch See Detail Med Orders - Current: Current Medications Discontinued Medications Acetaminophen (Tylenol) 650 mg PO Q4H PRN PRN Reason: Pain (Mild 1-3)/fever Albuterol/Ipratropium (Duoneb 3.0-0.5 Mg/3 Ml) 3 ml NEB QIDRT [facility] Last Admin: 10/30/19 11:33 Dose: 3 ml Apixaban (Eliquis) 2.5 mg PO BID [facility] Last Admin: 10/30/19 07:27 Dose: 2.5 mg Diphenhydramine HCl (Benadryl) 25 mg IV ONETIME ONE Stop: 10/29/19 16:31 Last Admin: 10/29/19 16:47 Dose: 25 mg Ferrous Sulfate (Ferrous Sulfate) 324 mg PO BIDMEALS [facility] Last Admin: 10/30/19 10:02 Dose: 324 mg Furosemide (Lasix) 20 mg IVPUSH NOW ONE Stop: 10/29/19 16:31 Last Admin: 10/29/19 19:23 Dose: 20 mg Furosemide (Lasix) 40 mg PO DAILY [facility] Last Admin: 10/30/19 07:27 Dose: 40 mg Furosemide (Lasix) Confirm Administered Dose 40 mg .ROUTE .STK-MED ONE Stop: 10/29/19 19:27 Last Admin: 10/29/19 19:23 Dose: Not Given Glipizide (Glucotrol Xl) 5 mg PO DAILY [facility] Last Admin: 10/30/19 07:28 Dose: 5 mg Sodium Chloride (Normal Saline) 250 mls @ 150 mls/hr IV ASDIRECTED [facility] Stop: 10/29/19 18:13 Last Admin: 10/29/19 16:50 Dose: 150 mls/hr Levothyroxine Sodium (Levothyroxine) 125 mcg PO DAILY [facility] Last Admin: 10/30/19 07:26 Dose: 125 mcg Levothyroxine Sodium (Levothyroxine) 125 mcg PO ACBREAKFAST [facility] Lisinopril (Prinivil) 10 mg PO DAILY [facility] Last Admin: 10/30/19 08:41 Dose: Not Given Magnesium Oxide (Magnesium Oxide) 1,000 mg PO DAILY [facility] Last Admin: 10/30/19 07:28 Dose: 1,000 mg Magnesium Oxide (Magnesium Oxide) 1,000 mg PO DAILY@1200 ANDREW Metoprolol Succinate (Toprol Xl) 50 mg PO DAILY [facility] Last Admin: 10/30/19 08:41 Dose: 50 mg Nystatin (Nystop) 0 gm TOP TID PRN PRN Reason: Rash Last Admin: 10/29/19 19:30 Dose: 1 applic Ondansetron HCl (Zofran) 4 mg IVPUSH Q4H PRN PRN Reason: Nausea/Vomiting Sertraline HCl (Zoloft) 50 mg PO BID [facility] Last Admin: 10/30/19 07:28 Dose: 50 mg Sodium Chloride (Saline Flush) 10 ml FLUSH ASDIRECTED PRN PRN Reason: Keep Vein Open - Exam General: Reports: Alert, Oriented HEENT: Reports: Mucous Membr. Moist/[place] Neck: Reports: Supple Lungs: Reports: Decreased Breath Sounds Cardiovascular: Reports: Regular Rate, Regular Rhythm GI/Abdominal Exam: Normal Bowel Sounds, Soft, Non-Tender Extremities: Normal Inspection, Pedal Edema Skin: Reports: Warm, Dry Neurological: Reports: No New Focal Deficit
[2019-10-31] MEDS ORDERED: Levothyroxine 125 MCG Tab PO SCH (07:00)
== END 2019-10-30 12:50 | disposition home or self-care (01) | DRG 760 ==
LOC: CC.FCMC 14:12 → UNDOADMIN 15:07 → CC.MS 15:07
PROVIDERS: ADMIT Physician Assistant Medical; ATTEND Family Medicine
PROC: 30233N1 Transfusion of Nonautologous Red Blood Cells into Peripheral Vein, Percutaneous Approach (ICD-10-PCS; principal; 2019-10-29)
DX: N93.9 Abnormal uterine and vaginal bleeding, unspecified (principal); Z68.43 Body mass index [BMI] 50.0-59.9, adult; D64.9 Anemia, unspecified; G89.29 Other chronic pain; M54.5 Low back pain; K59.00 Constipation, unspecified; R53.1 Weakness; K21.9 Gastro-esophageal reflux disease without esophagitis; F32.9 Major depressive disorder, single episode, unspecified; N32.81 Overactive bladder; R41.0 Disorientation, unspecified; N28.9 Disorder of kidney and ureter, unspecified; E11.9 Type 2 diabetes mellitus without complications; E66.01 Morbid (severe) obesity due to excess calories; I10 Essential (primary) hypertension; F41.9 Anxiety disorder, unspecified; E78.5 Hyperlipidemia, unspecified; M19.90 Unspecified osteoarthritis, unspecified site; Z88.6 Allergy status to analgesic agent; Z90.49 Acquired absence of other specified parts of digestive tract; E03.9 Hypothyroidism, unspecified; Z98.49 Cataract extraction status, unspecified eye; Z98.84 Bariatric surgery status; Z96.659 Presence of unspecified artificial knee joint; Z96.649 Presence of unspecified artificial hip joint; I48.92 Unspecified atrial flutter; Z79.01 Long term (current) use of anticoagulants; Z79.84 Long term (current) use of oral hypoglycemic drugs; Z79.890 Hormone replacement therapy; Z79.899 Other long term (current) drug therapy; Z88.8 Allergy status to other drugs, medicaments and biological substances
CPT/HCPCS: 36415; 36430; 80048; 82728; 83540; 83550; 85014; 85018; 85025; 86850; 86900; 86901; 86920; 86922; 94640; A9270-GY; J1200; J1940; J7050; J7620-GY; P9016

== ENCOUNTER 2019-10-31 13:27 | Emergency (ER) | payer MEDICARE, OTHER ==
[2019-10-31 13:51] VITALS: BP 110/53; PULSE 79
--- NOTE | 2019-10-31 14:14 | EDM.PDOC ---
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 She states that she had minimal amount of bleeding yesterday and today when she first got up she didn't have any on her pad. After being up and going to the BR she noted a gush of bleeding that had 4 clots in it. Has not had much since. She is concerned as she did get blood earlier this week. According to link Jamie she has appt in [place] to see ELECTRICAL INSTRUMENTATION TECHNICIAN on monday for consult for possible hyst. She states that she has had minimal bleeding since the initial gush of blood. She denies any abdominal pain or cramping. No lightheadedness. Onset: Gradual - Related Data Allergies Allergy/AdvReac Type Severity Reaction Status Date / Time tramadol AdvReac Hallucinati Verified 10/29/19 16:22 ons Home Meds: Home Meds Furosemide [Lasix] 40 mg PO DAILY 05/11/15 [History] Levothyroxine 125 mcg PO DAILY 05/11/15 [History] Quinapril [Accupril] 20 mg PO DAILY 05/11/15 [History] Sertraline [Zoloft] 50 mg PO BID 05/11/15 [History] Acetaminophen [Acetaminophen Extra Strength] 1,000 mg PO BID PRN 12/04/18 [ History] Magnesium Oxide [Magnesium] 1,000 mg PO DAILY 12/04/18 [History] Metoprolol Succinate 50 mg PO DAILY 12/04/18 [History] Nystatin 1 applic TOP TID PRN 12/04/18 [History] Cyclobenzaprine HCl 10 mg PO Q8H PRN 09/03/19 [History] glipiZIDE [Glipizide ER] 5 mg PO DAILY 09/03/19 [History] Albuterol/Ipratropium [DuoNeb 3.0-0.5 MG/3 ML] 3 ml NEB QID #1 box 09/24/19 [Rx] Apixaban [Eliquis] 2.5 mg PO BID #60 tablet 10/30/19 [Rx] Ferrous Sulfate 324 mg PO BIDMEALS #60 tab.ec 10/30/19 [Rx] Past Medical History Cardiovascular History: Reports: Heart Murmur, Hypertension, Other (See Below) Other Cardiovascular History: A FLUTTER Respiratory History: Reports: PE Gastrointestinal History: Reports: GERD, Hemorrhoids, PUD Genitourinary History: Reports: Urinary Incontinence Other Genitourinary History: Hematuria, with blood clots 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 - Past Surgical History HEENT Surgical History: Reports: Cataract Surgery GI Surgical History: Reports: Appendectomy, Bariatric Procedure, Hernia Repair/ Other Female Surgical History: Reports: Other (See Below) Other Female Surgeries/Procedures: biopsy Musculoskeletal Surgical History: Reports: Hip Replacement, Knee Replacement Other Musculoskeletal Surgeries/Procedures:: Bilateral hip, right knee Social & Family History - Family History Family Medical History: Noncontributory - Tobacco Use Smoking Status *Q: Never Smoker Second Hand Smoke Exposure: No - Caffeine Use Caffeine Use: Reports: None - Recreational Drug Use Recreational Drug Use: No - Living Situation & Occupation Living situation: Reports: , with Family (grandson) Occupation: Retired ED ROS GENERAL - Review of Systems Review Of Systems: See Below Constitutional: Denies: Fever, Chills GI/Abdominal: Denies: Abdominal Pain : Reports: Other (vaginal bleeding.) Hematologic/Lymphatic: Reports: Anemia ED EXAM, RENAL/ - Physical Exam Exam: See Below Exam Limited By: No Limitations General Appearance: Alert, WD/WN, No Apparent Distress Ears: Normal External Exam, Normal Canal Throat/Mouth: Normal Inspection, Normal Oropharynx Head: Atraumatic, Normocephalic Neck: Normal Inspection, Supple, Non-Tender, Full Range of Motion Respiratory/Chest: No Respiratory Distress, Lungs Clear, Normal Breath Sounds, Decreased Breath Sounds (to the bases due to poor inspiratory effort) Cardiovascular: Regular Rate, Rhythm GI/Abdominal: Normal Bowel Sounds, Soft, Non-Tender (Female) Exam: Other (small amount of bloody discharge on her pad currently.) Extremities: Normal Capillary Refill Neurological: Alert, Oriented Skin Exam: Warm, Dry, Intact Course - Vital Signs Last Recorded V/S: Last Vital Signs Temp 98.0 F 10/31/19 13:49 Pulse 79 10/31/19 13:49 Resp 16 10/31/19 13:49 BP 110/53 L 10/31/19 13:49 Pulse Ox 100 10/31/19 13:49 - Orders/Labs/Meds Labs: Laboratory Tests 10/31/19 10/31/19 Range/Units 13:38 13:38 WBC 9.1 (5.0-10.0) 10^3/uL RBC 2.89 L (4.00-5.50) 10^6/uL Hgb 8.7 L (12.0-16.0) g/dL Hct 28.5 L (37.0-47.0) % MCV 98.6 H (82.0-94.0) fL MCH 30.1 (27.0-32.0) pg MCHC 30.5 L (33.0-38.0) g/dL RDW Coeff of Ronan 15.5 H (11.0-15.0) % Plt Count 246 (150-400) 10^3/uL Neut % (Auto) 64.5 (35-85) % Lymph % (Auto) 17.7 (10-55) % [place] % (Auto) 11.0 (0-16) % Eos % (Auto) 5.6 H (0-5) % Baso % (Auto) 1.2 (0-3) % Neut # (Auto) 5.86 (1.80-7.00) 10^3/uL Lymph # (Auto) 1.61 (1.00-4.80) 10^3/uL [place] # (Auto) 1.00 H (0.00-0.80) 10^3/uL Eos # (Auto) 0.51 H (0.00-0.45) 10^3/uL Baso # (Auto) 0.11 10^3/uL Sodium 140 (136-145) mEq/L Potassium 4.1 (3.5-5.0) mEq/L Chloride 106 (98-106) mEq/L Carbon Dioxide 26 (21-32) mmol/L BUN 28 H (7-18) mg/dL Creatinine 1.8 H (0.6-1.0) mg/dL Est Cr Clr Drug Dosing 20.56 mL/min Estimated GFR (MDRD) 27 L (>=60) mL/min Glucose 216 H D (75-99) mg/dL Calcium 8.2 L (8.4-10.1) mg/dL - Re-Assessments/Exams Free Text/Narrative Re-Assessment/Exam: 10/31/2019 1345 blood work was discussed with pt. HGB unchanged from last one after blood transfusion. will discharge home with grandson and discussed that she will continue to bleed until the problem is taken care of with hysterectomy. Needs to keep appt with garbage collector driver next week in [place]. Departure - Departure Time of Disposition: 14:12 Disposition: Home, Self-Care 01 Condition: Good Clinical Impression: Vaginal bleeding - Discharge Information *PRESCRIPTION DRUG MONITORING PROGRAM REVIEWED*: Not Applicable *COPY OF PRESCRIPTION DRUG MONITORING REPORT IN PATIENT GGAE: Not Applicable Instructions: Abnormal Uterine Bleeding Referrals: Bucky Martinez MD [Primary Care Provider] - Forms: ED Department Discharge Additional Instructions: keep appt with ELECTRICAL INSTRUMENTATION TECHNICIAN as scheduled Irregular bleeding is to be expected until definitive treatment is done Sepsis Event Note - Evaluation Sepsis Screening Result: No Definite Risk - Focused Exam Date Exam was Performed: 11/01/19 Time Exam was Performed: 07:10 - Problem List & Annotations (1) Vaginal bleeding SNOMED Code(s): 150347123, 460670834 Code(s): N93.9 - ABNORMAL UTERINE AND VAGINAL BLEEDING, UNSPECIFIED Status : Acute Priority: High - Problem List Review Problem List Initiated/Reviewed/Updated: Yes
== END 2019-10-31 14:37 | disposition home or self-care (01) ==
LOC: CC.ED 13:27
DX: N93.9 Abnormal uterine and vaginal bleeding, unspecified (principal); I10 Essential (primary) hypertension; K21.9 Gastro-esophageal reflux disease without esophagitis; E11.9 Type 2 diabetes mellitus without complications; M19.90 Unspecified osteoarthritis, unspecified site; E20.9 Hypoparathyroidism, unspecified; Z86.711 Personal history of pulmonary embolism; Z88.8 Allergy status to other drugs, medicaments and biological substances; Z79.899 Other long term (current) drug therapy; Z79.01 Long term (current) use of anticoagulants; Z79.84 Long term (current) use of oral hypoglycemic drugs
CPT/HCPCS: 36415; 80048; 85025; 99284

== ENCOUNTER 2019-11-02 13:58 | Observation (INO) | payer MEDICARE, OTHER ==
[2019-11-02 15:10] LABS: CHLORIDE,CL 106 mEq/L (98-106); SODIUM,NA 142 mEq/L (136-145)
[2019-11-02] MEDS ORDERED: diphenhydrAMINE 50 MG/ML SDV IVPUSH ONE (15:50)
[2019-11-02] MEDS ORDERED: Sodium Chloride 0.9% 250 ML IV SCH (16:00)
--- NOTE | 2019-11-02 16:18 | EDM.PDOC ---
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 Patient reports since about mid august having vaginal bleeding. She reports being seen multiple times for it and getting blood transfusions. Patient reports they have halfed her Eliquis and started her on Megace which she started yesterday. Patient reports feeling generally weak and foggy for the past few days. Onset: Other (middle of decemeber) Duration: Week(s): (6) Severity: Moderate Improves with: Reports: None Worsens with: Reports: None Associated Symptoms: Reports: Weakness (generally). Denies: Confusion, Chest Pain, Cough, cough w sputum, Diaphoresis, Fever/Chills, Headaches, Loss of Appetite, Malaise, Nausea/Vomiting, Rash, Seizure, Shortness of Breath, Syncope - Related Data Allergies Allergy/AdvReac Type Severity Reaction Status Date / Time tramadol AdvReac Hallucinati Verified 11/02/19 14:01 ons Home Meds: Home Meds Furosemide [Lasix] 40 mg PO DAILY 05/11/15 [History] Levothyroxine 125 mcg PO DAILY 05/11/15 [History] Quinapril [Accupril] 20 mg PO DAILY 05/11/15 [History] Sertraline [Zoloft] 50 mg PO BID 05/11/15 [History] Acetaminophen [Acetaminophen Extra Strength] 1,000 mg PO BID PRN 12/04/18 [ History] Magnesium Oxide [Magnesium] 1,000 mg PO DAILY 12/04/18 [History] Metoprolol Succinate 50 mg PO DAILY 12/04/18 [History] Nystatin 1 applic TOP TID PRN 12/04/18 [History] Cyclobenzaprine HCl 10 mg PO Q8H PRN 09/03/19 [History] glipiZIDE [Glipizide ER] 5 mg PO DAILY 09/03/19 [History] Albuterol/Ipratropium [DuoNeb 3.0-0.5 MG/3 ML] 3 ml NEB QID #1 box 09/24/19 [Rx] Apixaban [Eliquis] 2.5 mg PO BID #60 tablet 10/30/19 [Rx] Ferrous Sulfate 324 mg PO BIDMEALS #60 tab.ec 10/30/19 [Rx] Past Medical History Cardiovascular History: Reports: Heart Murmur, Hypertension, Other (See Below) Other Cardiovascular History: A FLUTTER Respiratory History: Reports: PE Gastrointestinal History: Reports: GERD, Hemorrhoids, PUD Genitourinary History: Reports: Urinary Incontinence Other Genitourinary History: Hematuria, with blood clots 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 - Past Surgical History HEENT Surgical History: Reports: Cataract Surgery GI Surgical History: Reports: Appendectomy, Bariatric Procedure, Hernia Repair/ Other Female Surgical History: Reports: Other (See Below) Other Female Surgeries/Procedures: biopsy Musculoskeletal Surgical History: Reports: Hip Replacement, Knee Replacement Other Musculoskeletal Surgeries/Procedures:: Bilateral hip, right knee Social & Family History - Family History Family Medical History: Noncontributory - Tobacco Use Smoking Status *Q: Never Smoker Second Hand Smoke Exposure: No - Caffeine Use Caffeine Use: Reports: None - Recreational Drug Use Recreational Drug Use: No - Living Situation & Occupation Living situation: Reports: , with Family (grandson) Occupation: Retired ED ROS GENERAL - Review of Systems Review Of Systems: See Below Constitutional: Reports: Weakness (generally) HEENT: Reports: No Symptoms Respiratory: Reports: No Symptoms Cardiovascular: Reports: No Symptoms Endocrine: Reports: No Symptoms GI/Abdominal: Reports: No Symptoms : Reports: Other (vaginal bleeding) Musculoskeletal: Reports: No Symptoms Skin: Reports: No Symptoms Neurological: Reports: No Symptoms Psychiatric: Reports: No Symptoms Hematologic/Lymphatic: Reports: No Symptoms Immunologic: Reports: No Symptoms ED EXAM, RENAL/ - Physical Exam Exam: See Below Exam Limited By: No Limitations General Appearance: Alert, WD/WN, No Apparent Distress Eye Exam: Bilateral Eye: Normal Inspection, PERRL Ears: Normal External Exam, Normal Canal, Hearing Grossly Normal, Normal TMs Nose: Normal Inspection, Normal Mucosa, No Blood Throat/Mouth: Normal Inspection, Normal Lips, Normal Teeth, Normal Gums, Normal Oropharynx, Normal Voice, No Airway Compromise Head: Atraumatic, Normocephalic Neck: Normal Inspection, Supple, Non-Tender, Full Range of Motion Respiratory/Chest: No Respiratory Distress, Lungs Clear, Normal Breath Sounds, No Accessory Muscle Use Cardiovascular: Normal Peripheral Pulses, Regular Rate, Rhythm, No Edema, No Gallop, No JVD, No Murmur, No Rub GI/Abdominal: Soft, Non-Tender, Other (obese) (Female) Exam: Vaginal Bleeding (bright red blood. Moderate amount. No clots seen. ) Back Exam: Normal Inspection Extremities: Normal Inspection, Normal Range of Motion, Non-Tender, No Pedal Edema, Normal Capillary Refill Neurological: Alert, Oriented Psychiatric: Normal Affect, Normal Mood Skin Exam: Warm, Dry, Intact, No Rash, Pallor Lymphatic: No Adenopathy Course - Vital Signs Last Recorded V/S: Last Vital Signs Temp 99.0 F 11/02/19 16:59 Pulse 83 11/02/19 16:59 Resp 16 11/02/19 16:59 BP 115/44 L 11/02/19 16:59 Pulse Ox 100 11/02/19 16:59 - Orders/Labs/Meds Orders: Active Orders 24 hr Category Date Time Status RED BLOOD CELLS LP [BBK] Routine Lab 11/02/19 15:22 Results TYPE AND SCREEN [BBK] Routine Lab 11/02/19 15:22 Results Sodium Chloride 0.9% [Normal Saline] 250 ml Med 11/02/19 16:00 Active IV ASDIRECTED Medication Orders Sodium Chloride (Normal Saline) 250 mls @ 100 mls/hr IV ASDIRECTED ANDREW Last Admin: 11/02/19 16:23 Dose: 100 mls/hr Labs: Laboratory Tests 11/02/19 11/02/19 11/02/19 Range/Units 14:11 14:36 15:22 WBC 7.4 (5.0-10.0) 10^3/uL RBC 2.47 L (4.00-5.50) 10^6/uL Hgb 7.3 L* (12.0-16.0) g/dL Hct 24.7 L (37.0-47.0) % MCV 100.0 H (82.0-94.0) fL MCH 29.6 (27.0-32.0) pg MCHC 29.6 L (33.0-38.0) g/dL RDW Coeff of Ronan 15.9 H (11.0-15.0) % Plt Count 220 (150-400) 10^3/uL Neut % (Auto) 59.9 (35-85) % Lymph % (Auto) 25.0 (10-55) % [place] % (Auto) 10.6 (0-16) % Eos % (Auto) 3.6 (0-5) % Baso % (Auto) 0.9 (0-3) % Neut # (Auto) 4.45 (1.80-7.00) 10^3/uL Lymph # (Auto) 1.86 (1.00-4.80) 10^3/uL [place] # (Auto) 0.79 (0.00-0.80) 10^3/uL Eos # (Auto) 0.27 (0.00-0.45) 10^3/uL Baso # (Auto) 0.07 10^3/uL Sodium 142 (136-145) mEq/L Potassium 3.8 (3.5-5.0) mEq/L Chloride 106 (98-106) mEq/L Carbon Dioxide 26 (21-32) mmol/L BUN 29 H (7-18) mg/dL Creatinine 1.9 H (0.6-1.0) mg/dL Est Cr Clr Drug Dosing TNP Estimated GFR (MDRD) 25 L (>=60) mL/min Glucose 110 H D (75-99) mg/dL Calcium 8.1 L (8.4-10.1) mg/dL Total Bilirubin 0.3 (0.0-1.0) mg/dL AST 18 (15-37) U/L ALT 19 (12-78) U/L Alkaline Phosphatase 77 (46-116) U/L Total Protein 5.7 L (6.4-8.2) g/dL Albumin 2.7 L (3.4-5.0) g/dL Blood Type A POSITIVE Gel Antibody Screen Negative Crossmatch See Detail Meds: Medications Generic Name Dose Route Start Last Admin Trade Name Freq PRN Reason Stop Dose Admin Sodium Chloride 250 mls @ 100 mls/hr 11/02/19 16:00 11/02/19 16:23 Normal Saline IV 100 mls/hr ASDIRECTED ANDREW Administration Discontinued Medications Generic Name Dose Route Start Last Admin Trade Name Cristela IVERSON Reason Stop Dose Admin Diphenhydramine HCl 25 mg 11/02/19 15:50 11/02/19 16:18 Benadryl IVPUSH 11/02/19 15:51 25 mg ONETIME ONE Administration - Re-Assessments/Exams Free Text/Narrative Re-Assessment/Exam: 11/02/19 16:23 I reviewed all patient recent visits, labs US. I called and spoke to Dr. Rupal Bradshaw sterile proc tech at [facility]. She reports patient is on a blood thinner for PE, and her obesity make surgery very risky. She reports they are trying medication first. She reports patient is not a candidate for estrogen. Megace has not been given enough time to work. She recommends patient continue megace, see umbrella tipper hand on Monday. Transfuse today. have umbrella tipper hand see Monday. I will transfuse patient 2 units, admit observation and evaluate hgb in the morning. Departure - Departure Time of Disposition: 16:17 Disposition: Refer to Observation Condition: Fair Clinical Impression: Vaginal bleeding, Blood loss anemia - Discharge Information *PRESCRIPTION DRUG MONITORING PROGRAM REVIEWED*: Not Applicable *COPY OF PRESCRIPTION DRUG MONITORING REPORT IN PATIENT GAGE: Not Applicable Sepsis Event Note - Evaluation Sepsis Screening Result: No Definite Risk - Focused Exam Vital Signs: Vital Signs Temp Temp Pulse Resp BP Pulse Ox 11/02/19 16:30 98.9 F 81 18 110/52 L 100 11/02/19 14:27 99.5 F 85 20 120/52 L 97 Date Exam was Performed: 11/02/19 Time Exam was Performed: 17:12 - My Orders Last 24 Hours: My Active Orders 11/02/19 15:22 RED BLOOD CELLS LP [BBK] Routine TYPE AND SCREEN [BBK] Routine 11/02/19 16:00 Sodium Chloride 0.9% [Normal Saline] 250 ml IV ASDIRECTED - Assessment/Plan Last 24 Hours: My Active Orders 11/02/19 15:22 RED BLOOD CELLS LP [BBK] Routine TYPE AND SCREEN [BBK] Routine 11/02/19 16:00 Sodium Chloride 0.9% [Normal Saline] 250 ml IV ASDIRECTED Plan: PLEASE SEE RN NOTE FOR PFSH. PLEASE USE ER H&P ADMIT H&P.
[2019-11-02] MEDS ORDERED: Non-Formulary Medication 1 Each (Nystatin [Nystatin] 1 APPLIC) TOP PRN (18:40)
[2019-11-02] MEDS ORDERED: ACETAMINOPHEN 1000 MG PO PRN (18:40)
[2019-11-02] MEDS ORDERED: Ondansetron 4 MG/2 ML SDV IV PRN (18:40)
[2019-11-02] MEDS ORDERED: CYCLOBENZAPRINE HCL 10 MG PO PRN (18:40)
[2019-11-02] MEDS: FERROUS SULFATE 324 MG PO SCH (20:25)
[2019-11-02] MEDS: Albuterol/Ipratropium 3.0-0.5 MG/3 ML Neb Soln NEB SCH (20:26)
[2019-11-02] MEDS: METOPROLOL SUCCINATE 50 MG PO SCH (20:26)
[2019-11-02] MEDS: APIXABAN 5 MG PO SCH (20:26)
[2019-11-02] MEDS: MEGESTROL ACETATE 40 MG PO SCH (20:26)
[2019-11-02] MEDS: SERTRALINE 100 MG PO SCH (20:27)
[2019-11-02] MEDS: QUINAPRIL 20 MG PO SCH (20:27)
[2019-11-03] MEDS ORDERED: MAGNESIUM OXIDE 1000 MG PO SCH (08:00)
[2019-11-03] MEDS ORDERED: Levothyroxine 125 MCG Tab **OWN MED PO SCH (08:00)
[2019-11-03] MEDS ORDERED: Furosemide 40 MG Tab **OWN MED PO SCH (08:00)
[2019-11-03] MEDS ORDERED: GLIPIZIDE 5 MG PO SCH (08:00)
[2019-11-03] MEDS: Albuterol/Ipratropium 3.0-0.5 MG/3 ML Neb Soln NEB SCH ×4 (09:53→20:13)
[2019-11-03] MEDS: MEGESTROL ACETATE 40 MG PO SCH ×2 (10:03→20:14)
[2019-11-03] MEDS: APIXABAN 5 MG PO SCH ×2 (10:03→20:13)
[2019-11-03] MEDS: FERROUS SULFATE 324 MG PO SCH ×2 (10:04→20:13)
[2019-11-03] MEDS: SERTRALINE 100 MG PO SCH ×2 (10:05→20:13)
--- NOTE | 2019-11-03 20:01 | PCM.DCSUM1 ---
Discharge Summary - Hospital Course HPI Initial Comments: The patient was admitted yesterday for vaginal bleeding. She was transfused 2units of PRBCs. The patient today has had hgb over 9.0 both lab draws today. Today she reports she is feeling much better. She reports she does not have dizziness, n, v, headache, shortness of breath, abd pain. She reports chronic vaginal bleeding. Patient has a DECOMMISSIONING WELL SITE MANAGER appointment tomorrow morning. Her hgb has been stable today, will discharge so she can make her appointment with DECOMMISSIONING WELL SITE MANAGER. Patient is educated when to return and she voices back understanding. - Discharge Data Discharge Date: 11/03/19 Discharge Disposition: Home, Self-Care 01 Condition: Fair - Referral to Home Health Primary Care Physician: Jose Caceres PA-C - Patient Instructions Diet: Usual Diet as Tolerated Activity: As Tolerated Driving: Do Not Drive Notify Provider of: Fever, Increased Pain, Nausea and/or Vomiting Other/Special Instructions: If begin to bleed heavily, dizzy, lightheaded, weakness, shortness of breath, or any concerns. - Discharge Plan *PRESCRIPTION DRUG MONITORING PROGRAM REVIEWED*: Not Applicable *COPY OF PRESCRIPTION DRUG MONITORING REPORT IN PATIENT GAGE: Not Applicable Home Medications: Home Meds Furosemide [Lasix] 40 mg PO DAILY 05/11/15 [History] Levothyroxine 125 mcg PO DAILY 05/11/15 [History] Quinapril [Accupril] 20 mg PO DAILY 05/11/15 [History] Sertraline [Zoloft] 50 mg PO BID 05/11/15 [History] Acetaminophen [Acetaminophen Extra Strength] 1,000 mg PO BID PRN 12/04/18 [ History] Metoprolol Succinate 50 mg PO QPM 12/04/18 [History] Nystatin 1 applic TOP TID PRN 12/04/18 [History] Cyclobenzaprine HCl 10 mg PO Q8H PRN 09/03/19 [History] glipiZIDE [Glipizide ER] 5 mg PO DAILY 09/03/19 [History] Apixaban [Eliquis] 2.5 mg PO BID #60 tablet 10/30/19 [Rx] Ferrous Sulfate 324 mg PO BIDMEALS #60 tab.ec 10/30/19 [Rx] Megestrol Acetate 40 mg PO BID 11/02/19 [History] Magnesium Oxide [Magnesium] 1,000 mg PO DAILY 11/03/19 [Rx] Oxygen Therapy Mode: Room Air Patient Handouts: Abnormal Uterine Bleeding Forms: ED Department Discharge Referrals: Jose Caceres PA-C [Primary Care Provider] - - Discharge Summary/Plan Comment DC Time >30 min.: No - General Info Date of Service: 11/03/19 Functional Status: Reports: Pain Controlled, Tolerating Diet - Review of Systems General: Reports: No Symptoms. Denies: Weakness, Fatigue, Malaise HEENT: Reports: No Symptoms Pulmonary: Reports: No Symptoms Cardiovascular: Reports: No Symptoms Gastrointestinal: Reports: No Symptoms Genitourinary: Reports: Other (vaginal bleeding) Musculoskeletal: Reports: No Symptoms Skin: Reports: No Symptoms Neurological: Reports: No Symptoms Psychiatric: Reports: No Symptoms - Patient Data Vitals - Most Recent: Last Vital Signs Temp 98.1 F 11/03/19 16:00 Pulse 85 11/03/19 16:00 Resp 20 11/03/19 16:00 BP 112/66 11/03/19 16:00 Pulse Ox 99 11/03/19 16:00 Weight - Most Recent: 318 lb Lab Results - Last 24 hrs: Laboratory Results - last 24 hr 11/02/19 11/03/19 11/03/19 Range/Units 15:22 05:11 14:17 WBC 7.5 (5.0-10.0) 10^3/uL RBC 3.16 L (4.00-5.50) 10^6/uL Hgb 9.4 L 9.0 L (12.0-16.0) g/dL Hct 30.4 L 28.7 L (37.0-47.0) % MCV 96.2 H (82.0-94.0) fL MCH 29.7 (27.0-32.0) pg MCHC 30.9 L (33.0-38.0) g/dL RDW Coeff of Ronan 16.4 H (11.0-15.0) % Plt Count 171 (150-400) 10^3/uL Neut % (Auto) 58.0 (35-85) % Lymph % (Auto) 23.8 (10-55) % [place] % (Auto) 11.9 (0-16) % Eos % (Auto) 5.9 H (0-5) % Baso % (Auto) 0.4 (0-3) % Neut # (Auto) 4.33 (1.80-7.00) 10^3/uL Lymph # (Auto) 1.78 (1.00-4.80) 10^3/uL [place] # (Auto) 0.89 H (0.00-0.80) 10^3/uL Eos # (Auto) 0.44 (0.00-0.45) 10^3/uL Baso # (Auto) 0.03 10^3/uL Crossmatch See Detail Med Orders - Current: Current Medications Albuterol/Ipratropium (Duoneb 3.0-0.5 Mg/3 Ml) 3 ml NEB QIDRT [facility] Last Admin: 11/03/19 19:22 Dose: Not Given Furosemide (Lasix) 40 mg PO DAILY [facility] Last Admin: 11/03/19 10:04 Dose: 40 mg Glipizide (Glucotrol Xl) 5 mg PO DAILY [facility] Last Admin: 11/03/19 10:04 Dose: 5 mg Sodium Chloride (Normal Saline) 250 mls @ 100 mls/hr IV ASDIRECTED [facility] Last Admin: 11/02/19 16:23 Dose: 100 mls/hr Levothyroxine Sodium (Levothyroxine) 125 mcg PO DAILY [facility] Last Admin: 11/03/19 10:04 Dose: 125 mcg Non-Formulary Medication (Acetaminophen [Acetaminophen Extra Strength]) 1,000 mg PO BID PRN PRN Reason: Pain/Fever Apixaban [Eliquis] (5mg Tab Own Med) 0 mg PO BID [facility] Last Admin: 11/03/19 10:03 Dose: 2.5 mg Non-Formulary Medication (Cyclobenzaprine Hcl [Cyclobenzaprine Hcl]) 10 mg PO Q8H PRN PRN Reason: Spasms Ferrous Sulfate 324mg Tab Own Med 0 mg PO BIDMEALS [facility] Last Admin: 11/03/19 10:04 Dose: 324 mg Non-Formulary Medication (Magnesium Oxide [Magnesium]) 1,000 mg PO DAILY [facility] Metoprolol Succinate (50 Mg Own Med) 0 mg PO DAILY@1730 [facility] Last Admin: 11/02/19 20:26 Dose: 50 mg Non-Formulary Medication (Nystatin [Nystatin]) 1 applic TOP TID PRN PRN Reason: Rash Quinapril [Accupril] 20 Mg Tab *Own Med * 0 mg PO BEDTIME [facility] Last Admin: 11/02/19 20:27 Dose: 20 mg Sertraline 100mg (Tab *Own Med) 0 mg PO BID@0800,1730 [facility] Last Admin: 11/03/19 10:05 Dose: 50 mg Megestrol Acetate 40 (Mg Own Med) 0 mg PO BID [facility] Last Admin: 11/03/19 10:03 Dose: 40 mg Ondansetron HCl (Zofran) 4 mg IV Q6H PRN PRN Reason: Nausea/Vomiting Discontinued Medications Diphenhydramine HCl (Benadryl) 25 mg IVPUSH ONETIME ONE Stop: 11/02/19 15:51 Last Admin: 11/02/19 16:18 Dose: 25 mg - Exam General: Reports: Alert, Oriented, Cooperative, No Acute Distress HEENT: Reports: Pupils Equal, Pupils Reactive, Mucous Membr. Moist/[place] Neck: Reports: Supple, Trachea Midline Lungs: Reports: Clear to Auscultation, Normal Respiratory Effort Cardiovascular: Reports: Regular Rate, Regular Rhythm GI/Abdominal Exam: Normal Bowel Sounds, Soft, Non-Tender, Other (obese) (Female) Exam: Vaginal Bleeding (no clots seen. moderate bleeding. Chronic and known by DECOMMISSIONING WELL SITE MANAGER. ) Back Exam: Reports: Normal Inspection Extremities: Normal Inspection, Normal Range of Motion, Non-Tender, No Pedal Edema, Normal Capillary Refill Skin: Reports: Warm, Dry, Intact Psy/Mental Status: Reports: Alert, Normal Affect, Normal Mood *Q Meaningful Use (DIS) - VTE *Q VTE Anticoagulation Contraindications: Treatment Not Tolerated
[2019-11-03 20:12] VITALS: BP 147/68; PULSE 88
[2019-11-03] MEDS: METOPROLOL SUCCINATE 50 MG PO SCH (20:13)
[2019-11-03] MEDS: QUINAPRIL 20 MG PO SCH (20:14)
== END 2019-11-03 20:11 | disposition home or self-care (01) ==
LOC: CC.ED 13:58 → UNDOADMOB 16:40 → CC.MS 16:40 → UNDODISOB 11-03 20:11
PROVIDERS: ADMIT Nurse Practitioner; ATTEND Family Medicine
DX: N93.9 Abnormal uterine and vaginal bleeding, unspecified (principal); I10 Essential (primary) hypertension; K21.9 Gastro-esophageal reflux disease without esophagitis; M19.90 Unspecified osteoarthritis, unspecified site; E11.9 Type 2 diabetes mellitus without complications; E20.9 Hypoparathyroidism, unspecified; E66.9 Obesity, unspecified; Z79.84 Long term (current) use of oral hypoglycemic drugs; Z79.01 Long term (current) use of anticoagulants; Z79.891 Long term (current) use of opiate analgesic; Z79.899 Other long term (current) drug therapy; Z68.43 Body mass index [BMI] 50.0-59.9, adult
CPT/HCPCS: 36415; 36430; 80053; 85014; 85018; 85025; 86850; 86900; 86901; 86920; 86922; 96361; 96374; 99217; 99220; 99285-25; A9270-GY; J1200; J7050; P9016

== ENCOUNTER 2019-11-09 17:56 | Emergency (ER) | payer MEDICARE, OTHER ==
--- NOTE | 2019-11-09 18:11 | EDM.PDOC ---
ED HPI GENERAL MEDICAL PROBLEM - General Chief Complaint: General Stated Complaint: "Im weak and I want my HGB checked" Time Seen by Provider: 11/09/19 17:56 Source of Information: Reports: Patient History Limitations: Reports: No Limitations - History of Present Illness INITIAL COMMENTS - FREE TEXT/NARRATIVE: This patient is an 84 year old female that presents to the ER. Patient is known to the department. Patient has chronic vaginal bleeding. I have spoken to ASSEMBLER ERECTOR about patient last weekend. Patient reports she is here for a blood draw to check her hgb to see if she needs transfused. Patient reports she is generally weak. Duration: Chronic Severity: Mild Improves with: Reports: None Worsens with: Reports: None - Related Data Allergies Allergy/AdvReac Type Severity Reaction Status Date / Time tramadol AdvReac Hallucinati Verified 11/09/19 17:57 ons Home Meds: Home Meds Furosemide [Lasix] 40 mg PO DAILY 05/11/15 [History] Levothyroxine 125 mcg PO DAILY 05/11/15 [History] Quinapril [Accupril] 20 mg PO DAILY 05/11/15 [History] Sertraline [Zoloft] 50 mg PO BID 05/11/15 [History] Acetaminophen [Acetaminophen Extra Strength] 1,000 mg PO BID PRN 12/04/18 [ History] Metoprolol Succinate 50 mg PO QPM 12/04/18 [History] Nystatin 1 applic TOP TID PRN 12/04/18 [History] Cyclobenzaprine HCl 10 mg PO Q8H PRN 09/03/19 [History] glipiZIDE [Glipizide ER] 5 mg PO DAILY 09/03/19 [History] Apixaban [Eliquis] 2.5 mg PO BID #60 tablet 10/30/19 [Rx] Ferrous Sulfate 324 mg PO BIDMEALS #60 tab.ec 10/30/19 [Rx] Megestrol Acetate 40 mg PO BID 11/02/19 [History] Magnesium Oxide [Magnesium] 1,000 mg PO DAILY 11/03/19 [Rx] Past Medical History Cardiovascular History: Reports: Heart Murmur, Hypertension, Other (See Below) Other Cardiovascular History: A FLUTTER Respiratory History: Reports: PE Gastrointestinal History: Reports: GERD, Hemorrhoids, PUD Genitourinary History: Reports: Urinary Incontinence Other Genitourinary History: Hematuria, with blood clots 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 - Past Surgical History HEENT Surgical History: Reports: Cataract Surgery GI Surgical History: Reports: Appendectomy, Bariatric Procedure, Hernia Repair/ Other Female Surgical History: Reports: Other (See Below) Other Female Surgeries/Procedures: biopsy Musculoskeletal Surgical History: Reports: Hip Replacement, Knee Replacement Other Musculoskeletal Surgeries/Procedures:: Bilateral hip, right knee Social & Family History - Family History Family Medical History: Noncontributory - Caffeine Use Caffeine Use: Reports: None - Living Situation & Occupation Living situation: Reports: , with Family (grandson) Occupation: Retired ED ROS GENERAL - Review of Systems Review Of Systems: See Below Constitutional: Reports: Weakness (general) HEENT: Reports: No Symptoms Respiratory: Reports: No Symptoms Cardiovascular: Reports: No Symptoms Endocrine: Reports: No Symptoms GI/Abdominal: Reports: No Symptoms : Reports: Other (vaginal bleeding) Musculoskeletal: Reports: No Symptoms Skin: Reports: No Symptoms Neurological: Reports: No Symptoms Psychiatric: Reports: No Symptoms Hematologic/Lymphatic: Reports: No Symptoms Immunologic: Reports: No Symptoms ED EXAM, GENERAL - Physical Exam Exam: See Below Exam Limited By: No Limitations General Appearance: Alert, WD/WN, No Apparent Distress, Obese Eye Exam: Bilateral Eye: Normal Inspection, PERRL Ears: Normal External Exam, Normal Canal, Hearing Grossly Normal, Normal TMs Nose: Normal Inspection, Normal Mucosa, No Blood Throat/Mouth: Normal Inspection, Normal Lips, Normal Teeth, Normal Gums, Normal Oropharynx, Normal Voice, No Airway Compromise Head: Atraumatic, Normocephalic Neck: Normal Inspection, Supple, Non-Tender, Full Range of Motion Respiratory/Chest: No Respiratory Distress, Lungs Clear, Normal Breath Sounds, No Accessory Muscle Use Cardiovascular: Normal Peripheral Pulses, Regular Rate, Rhythm, No Edema, No Gallop, No JVD, No Murmur, No Rub Peripheral Pulses: 2+: Radial (L), Radial (R), Posterior Tibial (L), Posterior Tibial (R) GI/Abdominal: Soft, Non-Tender Back Exam: Normal Inspection Extremities: Normal Inspection, Normal Range of Motion, Non-Tender, No Pedal Edema, Normal Capillary Refill Neurological: Alert, Oriented Psychiatric: Normal Affect, Normal Mood Skin Exam: Warm, Dry, Intact, Normal Color, No Rash Lymphatic: No Adenopathy Course - Vital Signs Last Recorded V/S: Last Vital Signs Temp 96.5 F L 11/09/19 18:03 Pulse 86 11/09/19 18:03 Resp 20 11/09/19 18:03 BP 95/51 L 11/09/19 18:03 Pulse Ox 97 11/09/19 18:03 - Orders/Labs/Meds Orders: Active Orders 24 hr Category Date Time Status RED BLOOD CELLS LP [BBK] Routine Lab 11/09/19 18:59 Received TYPE AND SCREEN [BBK] Routine Lab 11/09/19 18:59 Received Labs: Laboratory Tests 11/09/19 11/09/19 Range/Units 18: 18:20 WBC 8.4 (5.0-10.0) 10^3/uL RBC 2.50 L (4.00-5.50) 10^6/uL Hgb 7.3 L* (12.0-16.0) g/dL Hct 25.1 L (37.0-47.0) % MCV 100.4 H (82.0-94.0) fL MCH 29.2 (27.0-32.0) pg MCHC 29.1 L (33.0-38.0) g/dL RDW Coeff of Ronan 16.5 H (11.0-15.0) % Plt Count 224 (150-400) 10^3/uL Neut % (Auto) 71.3 (35-85) % Lymph % (Auto) 15.6 (10-55) % [place] % (Auto) 10.8 (0-16) % Eos % (Auto) 1.3 (0-5) % Baso % (Auto) 1.0 (0-3) % Neut # (Auto) 5.96 (1.80-7.00) 10^3/uL Lymph # (Auto) 1.30 (1.00-4.80) 10^3/uL [place] # (Auto) 0.90 H (0.00-0.80) 10^3/uL Eos # (Auto) 0.11 (0.00-0.45) 10^3/uL Baso # (Auto) 0.08 10^3/uL Sodium 143 (136-145) mEq/L Potassium 3.8 (3.5-5.0) mEq/L Chloride 107 H (98-106) mEq/L Carbon Dioxide 24 (21-32) mmol/L BUN 27 H (7-18) mg/dL Creatinine 2.1 H (0.6-1.0) mg/dL Est Cr Clr Drug Dosing 17.62 mL/min Estimated GFR (MDRD) 22 L (>=60) mL/min Glucose 183 H D (75-99) mg/dL Calcium 8.4 (8.4-10.1) mg/dL - Re-Assessments/Exams Free Text/Narrative Re-Assessment/Exam: 11/09/19 19:04 Patient hgb is 7.3. Will transfuse 2 units of PRBCs and discharge home. Departure - Departure Time of Disposition: 19:05 Disposition: Home, Self-Care 01 Condition: Fair Clinical Impression: Vaginal bleeding Anemia Qualifiers: Anemia type: due to chronic kidney disease Chronic kidney disease stage: unspecified stage Qualified Code(s): N18.9 - Chronic kidney disease, unspecified - Discharge Information *PRESCRIPTION DRUG MONITORING PROGRAM REVIEWED*: Not Applicable *COPY OF PRESCRIPTION DRUG MONITORING REPORT IN PATIENT GAGE: Not Applicable Instructions: Blood Transfusion, Adult, [id number], Blood Transfusion, Adult , Care After, [id number], Abnormal Uterine Bleeding, [id number] Forms: ED Department Discharge Additional Instructions: Followup with your ASSEMBLER ERECTOR Followup with your primary care provider: Recommend routine H/H draws to be ordered Return to the ER for worsening of condition or any emergent concerns Sepsis Event Note - Evaluation Sepsis Screening Result: No Definite Risk - Focused Exam Vital Signs: Vital Signs Temp Pulse Resp BP Pulse Ox 11/09/19 18:03 96.5 F L 86 20 95/51 L 97 Date Exam was Performed: 11/09/19 Time Exam was Performed: 19:04 - My Orders Last 24 Hours: My Active Orders 11/09/19 18:59 RED BLOOD CELLS LP [BBK] Routine TYPE AND SCREEN [BBK] Routine - Assessment/Plan Last 24 Hours: My Active Orders 11/09/19 18:59 RED BLOOD CELLS LP [BBK] Routine TYPE AND SCREEN [BBK] Routine Plan: PLEASE SEE RN NOTE FOR PFSH
[2019-11-09] MEDS: Sodium Chloride 0.9% 250 ML IV SCH (20:38)
[2019-11-10 02:36] VITALS: BP 114/60; PULSE 72
[2019-11-10] MEDS: Sodium Chloride 0.9% 250 ML ONE (04:12)
== END 2019-11-10 04:25 | disposition home or self-care (01) ==
LOC: CC.ED 17:56
DX: N93.9 Abnormal uterine and vaginal bleeding, unspecified (principal); D64.9 Anemia, unspecified; I10 Essential (primary) hypertension; E11.9 Type 2 diabetes mellitus without complications; Z88.6 Allergy status to analgesic agent; Z79.84 Long term (current) use of oral hypoglycemic drugs
CPT/HCPCS: 36415; 36430; 80048; 85025; 86850; 86900; 86901; 86920; 86922; 96360; 96361; 99284; 99284-25; J7050; P9016

== ENCOUNTER 2019-12-18 06:36 | Inpatient (IN) | payer MEDICARE, OTHER ==
[2019-12-18 07:09] LABS: CHLORIDE,CL 105 mEq/L (98-106); SODIUM,NA 141 mEq/L (136-145)
--- NOTE | 2019-12-18 07:20 | EDM.PDOC ---
ED HPI GENERAL MEDICAL PROBLEM - General Chief Complaint: Trauma Stated Complaint: fall Time Seen by Provider: 12/18/19 06:55 Source of Information: Reports: Patient History Limitations: Reports: No Limitations - History of Present Illness INITIAL COMMENTS - FREE TEXT/NARRATIVE: States that she went to bed around 9 pm last night and doesn't remember getting up during the night and when her grandson came home this AM she was on the floor. She was complaining of her left knee hurting but that has been hurting for years. He called ambulance as he couldn't get her up. She is uncertain if she hit her head. She is on coumadin. GCS= 15 on admission. She is confused as to where she is and time. No obvious injury noted. Onset: Today Location: Reports: Generalized - Related Data Allergies Allergy/AdvReac Type Severity Reaction Status Date / Time tramadol AdvReac Hallucinati Verified 11/09/19 17:57 ons Home Meds: Home Meds Furosemide [Lasix] 40 mg PO DAILY 05/11/15 [History] Levothyroxine 125 mcg PO DAILY 05/11/15 [History] Quinapril [Accupril] 20 mg PO DAILY 05/11/15 [History] Sertraline [Zoloft] 50 mg PO BID 05/11/15 [History] Acetaminophen [Acetaminophen Extra Strength] 1,000 mg PO BID PRN 12/04/18 [ History] Metoprolol Succinate 50 mg PO QPM 12/04/18 [History] Nystatin 1 applic TOP TID PRN 12/04/18 [History] Cyclobenzaprine HCl 10 mg PO Q8H PRN 09/03/19 [History] glipiZIDE [Glipizide ER] 5 mg PO DAILY 09/03/19 [History] Apixaban [Eliquis] 2.5 mg PO BID #60 tablet 10/30/19 [Rx] Ferrous Sulfate 324 mg PO BIDMEALS #60 tab.ec 10/30/19 [Rx] Megestrol Acetate 40 mg PO BID 11/02/19 [History] Magnesium Oxide [Magnesium] 1,000 mg PO DAILY 11/03/19 [Rx] Past Medical History Cardiovascular History: Reports: Heart Murmur, Hypertension, Other (See Below) Other Cardiovascular History: A FLUTTER Respiratory History: Reports: PE Gastrointestinal History: Reports: GERD, Hemorrhoids, PUD Genitourinary History: Reports: Urinary Incontinence Other Genitourinary History: Hematuria, with blood clots PROJECT PLANNER History: Reports: Other PROJECT PLANNER History: VAGINAL BLEEDING Musculoskeletal History: Reports: Arthritis Endocrine/Metabolic History: Reports: Diabetes, Type II, Hypoparathyroidism Hematologic History: Reports: Anticoagulation Therapy Other Hematologic History: On eliquis Dermatologic History: Reports: Other (See Below) Other Dermatologic History: Yeasty rash under abdominal fold. - Past Surgical History HEENT Surgical History: Reports: Cataract Surgery GI Surgical History: Reports: Appendectomy, Bariatric Procedure, Hernia Repair/ Other Female Surgical History: Reports: Other (See Below) Other Female Surgeries/Procedures: biopsy Musculoskeletal Surgical History: Reports: Hip Replacement, Knee Replacement Other Musculoskeletal Surgeries/Procedures:: Bilateral hip, right knee Social & Family History - Family History Family Medical History: Noncontributory - Caffeine Use Caffeine Use: Reports: None - Living Situation & Occupation Living situation: Reports: , with Family (grandson) Occupation: Retired Review of Systems - Review of Systems Review Of Systems: See Below Constitutional: Reports: No Symptoms Eyes: Reports: No Symptoms Ears: Reports: No Symptoms Mouth/Throat: Reports: No Symptoms Respiratory: Reports: No Symptoms Cardiovascular: Reports: No Symptoms GI/Abdominal: Reports: No Symptoms Genitourinary: Reports: No Symptoms Musculoskeletal: Reports: No Symptoms Skin: Reports: No Symptoms Neurological: Reports: No Symptoms Psychiatric: Denies: Confusion ED EXAM, GENERAL - Physical Exam Exam: See Below Free Text/Narrative:: Trauma code due to falling and being on coumadin Airway open breathing is good. sats are in the id 90's on room air circulation- no bleeding deformity- none, no bruising noted. Red around umbilicus, chronic pain to the left knee but nothing acute exposed- yes GCS=15 Pt stable with no injury CT head is negative No chest, abdomen or pelvis needed as pt denies any pain on exam IV not needed as pt is stable Exam Limited By: No Limitations General Appearance: Alert, WD/WN, No Apparent Distress Eye Exam: Bilateral Eye: PERRL (3mm) Ears: Normal External Exam, Normal Canal, Normal TMs Nose: Normal Inspection Throat/Mouth: Normal Inspection, Normal Oropharynx Head: Atraumatic, Normocephalic Neck: Normal Inspection, Supple, Non-Tender, Full Range of Motion Respiratory/Chest: No Respiratory Distress, Lungs Clear, Normal Breath Sounds Cardiovascular: Irregularly Irregular GI/Abdominal: Normal Bowel Sounds, Soft, Non-Tender Back Exam: Normal Inspection Extremities: Normal Inspection, No Pedal Edema, Normal Capillary Refill Neurological: Alert, CN II-XII Intact, Confused (to place and time.) Psychiatric: Normal Affect, Normal Mood Skin Exam: Warm, Dry, Intact Course - Orders/Labs/Meds Orders: Active Orders 24 hr Category Date Time Status Head wo Cont [CT] Stat Exams 12/18/19 06:54 Ordered LACTIC ACID [CHEM] Stat Lab 12/18/19 06:48 Received Labs: Laboratory Tests 12/18/19 12/18/19 12/18/19 Range/Units 06:48 06:48 06:48 WBC 9.5 (5.0-10.0) 10^3/uL RBC 3.79 L (4.00-5.50) 10^6/uL Hgb 11.2 L (12.0-16.0) g/dL Hct 36.0 L (37.0-47.0) % MCV 95.0 H (82.0-94.0) fL MCH 29.6 (27.0-32.0) pg MCHC 31.1 L (33.0-38.0) g/dL RDW Coeff of Ronan 15.6 H (11.0-15.0) % Plt Count 204 (150-400) 10^3/uL Neut % (Auto) 74.5 (35-85) % Lymph % (Auto) 13.6 (10-55) % [place] % (Auto) 10.3 (0-16) % Eos % (Auto) 1.1 (0-5) % Baso % (Auto) 0.5 (0-3) % Neut # (Auto) 7.09 H (1.80-7.00) 10^3/uL Lymph # (Auto) 1.29 (1.00-4.80) 10^3/uL [place] # (Auto) 0.98 H (0.00-0.80) 10^3/uL Eos # (Auto) 0.10 (0.00-0.45) 10^3/uL Baso # (Auto) 0.05 10^3/uL PT 10.9 (9.7-12.3) SEC INR 1.06 (0.92-1.18) Sodium 141 (136-145) mEq/L Potassium 4.1 (3.5-5.0) mEq/L Chloride 105 (98-106) mEq/L Carbon Dioxide 25 (21-32) mmol/L BUN 28 H (7-18) mg/dL Creatinine 2.0 H (0.6-1.0) mg/dL Est Cr Clr Drug Dosing TNP Estimated GFR (MDRD) 24 L (>=60) mL/min Glucose 124 H D (75-99) mg/dL Calcium 8.7 (8.4-10.1) mg/dL Total Bilirubin 0.7 (0.0-1.0) mg/dL AST 20 (15-37) U/L ALT 14 (12-78) U/L Alkaline Phosphatase 68 (46-116) U/L Total Protein 6.6 (6.4-8.2) g/dL Albumin 2.9 L (3.4-5.0) g/dL Amylase 14 L (25-115) U/L - Re-Assessments/Exams Free Text/Narrative Re-Assessment/Exam: 12/18/19 07:30 Report from radiology is negative CT head. Pt has been up to the commode for BM. Was stable when up. Discussed that her INR is subtherapeutic but she is sure her grandson is giving her all of her pills. 12/18/19 08:[address] Martinez about admitting observation for her confusion. Dr. Martinez in agreement. Departure - Departure Time of Disposition: 08:39 Disposition: Refer to Observation Condition: Good Clinical Impression: Confusion, Dehydration symptoms Fall as cause of accidental injury at home as place of occurrence Qualifiers: Encounter type: initial encounter Qualified Code(s): W19.XXXA - Unspecified fall, initial encounter; Y92.009 - Unspecified place in unspecified non- institutional (private) residence as the place of occurrence of the external cause - Discharge Information *PRESCRIPTION DRUG MONITORING PROGRAM REVIEWED*: Not Applicable *COPY OF PRESCRIPTION DRUG MONITORING REPORT IN PATIENT GAGE: Not Applicable Additional Instructions: will admit observation and monitor confusion IV slow hydration for dehydration neuro checks every 4 hours while awake. - Problem List & Annotations (1) Fall as cause of accidental injury at home as place of occurrence SNOMED Code(s): 91005678 Code(s): W19.XXXA - UNSPECIFIED FALL, INITIAL ENCOUNTER; Y92.009 - UNSP PLACE IN UNSP NON-INSTITUT (PRIVATE) RESIDENCE PLACE Status: Acute Priority: High Current Visit: Yes Qualifiers: Encounter type: initial encounter Qualified Code(s): W19.XXXA - Unspecified fall, initial encounter; Y92.009 - Unspecified place in unspecified non-institutional (private) residence as the place of occurrence of the external cause - Problem List Review Problem List Initiated/Reviewed/Updated: Yes - My Orders Last 24 Hours: My Active Orders 12/18/19 06:48 LACTIC ACID [CHEM] Stat 12/18/19 06:54 Head wo Cont [CT] Stat - Assessment/Plan Last 24 Hours: My Active Orders 12/18/19 06:48 LACTIC ACID [CHEM] Stat 12/18/19 06:54 Head wo Cont [CT] Stat
[2019-12-18] MEDS ORDERED: Sodium Chloride 0.9% 10 ML Syringe FLUSH PRN (08:58)
[2019-12-18] MEDS ORDERED: Nystatin Topical Powder 15 GM Bottle TOP PRN (08:58)
[2019-12-18] MEDS ORDERED: Acetaminophen 325 MG Tab PO PRN (08:58)
[2019-12-18] MEDS: Sodium Chloride 0.9% 1,000 ML IV SCH ×2 (11:14→23:59)
[2019-12-18] MEDS: Sertraline 100 MG Tab PO SCH ×2 (12:36→17:47)
[2019-12-18] MEDS: Levothyroxine 125 MCG Tab PO SCH (12:37)
[2019-12-18] MEDS: MEGESTROL ACETATE 40 MG PO SCH ×2 (12:39→17:46)
[2019-12-18] MEDS: glipiZIDE 5 MG Tab.ER PO SCH (12:40)
[2019-12-18] MEDS ORDERED: Levothyroxine 125 MCG Tab PO SCH (14:00)
[2019-12-18] MEDS ORDERED: METOPROLOL SUCCINATE 50 MG PO SCH (17:30)
[2019-12-18] MEDS: Ferrous Sulfate 324 MG Tab.EC PO SCH (17:46)
[2019-12-18] MEDS: cefTRIAXone 1 GM Vial IVPUSH SCH (19:37)
[2019-12-18] MEDS: Apixaban 5 MG Tab PO SCH (19:47)
[2019-12-18] MEDS ORDERED: QUINAPRIL 20 MG PO SCH (20:00)
[2019-12-19] MEDS: Levothyroxine 125 MCG Tab PO SCH (07:06)
[2019-12-19] MEDS: Apixaban 5 MG Tab PO SCH ×2 (07:51→19:29)
[2019-12-19] MEDS: glipiZIDE 5 MG Tab.ER PO SCH (07:52)
[2019-12-19] MEDS: MEGESTROL ACETATE 40 MG PO SCH ×2 (07:52→17:23)
[2019-12-19] MEDS: Sertraline 100 MG Tab PO SCH ×2 (07:53→17:24)
[2019-12-19] MEDS: Ferrous Sulfate 324 MG Tab.EC PO SCH ×2 (07:59→17:23)
[2019-12-19] MEDS ORDERED: Furosemide 40 MG Tab PO SCH (08:00)
--- NOTE | 2019-12-19 09:54 | PCM.PN ---
- General Info Date of Service: 12/19/19 Admission Dx/Problem (Free Text): confusion, dehydration, acute UTI. Subjective Update: Pt states that she is feeling better but still weak. Functional Status: Reports: Pain Controlled - Review of Systems General: Reports: Weakness, Fatigue. Denies: Fever, Chills HEENT: Reports: No Symptoms Pulmonary: Reports: No Symptoms Cardiovascular: Reports: No Symptoms. Denies: Edema Gastrointestinal: Reports: No Symptoms Genitourinary: Reports: Incontinence Neurological: Denies: Confusion - Patient Data Vitals - Most Recent: Last Vital Signs Temp 96.5 F L 12/19/19 08:00 Pulse 88 12/19/19 08:00 Resp 22 H 12/19/19 08:00 BP 104/63 12/19/19 08:00 Pulse Ox 99 12/19/19 08:00 Weight - Most Recent: 297 lb 11.2 oz I&O - Last 24 Hours: Intake & Output 12/18/19 12/19/19 12/19/19 22:59 06:59 14:59 Intake Total 450 1056 240 Output Total 400 400 Balance 50 656 240 Lab Results Last 24 Hours: Laboratory Results - last 24 hr 12/19/19 12/19/19 12/19/19 Range/Units 05:11 05:11 07:55 WBC 5.6 (5.0-10.0) 10^3/uL RBC 3.47 L (4.00-5.50) 10^6/uL Hgb 10.4 L (12.0-16.0) g/dL Hct 39.6 (37.0-47.0) % MCV 114.1 H (82.0-94.0) fL MCH 30.0 (27.0-32.0) pg MCHC 26.3 L (33.0-38.0) g/dL RDW Coeff of Ronan 15.8 H (11.0-15.0) % Plt Count 165 (150-400) 10^3/uL Neut % (Auto) 58.5 (35-85) % Lymph % (Auto) 22.2 (10-55) % [place] % (Auto) 14.0 (0-16) % Eos % (Auto) 4.8 (0-5) % Baso % (Auto) 0.5 (0-3) % Neut # (Auto) 3.30 (1.80-7.00) 10^3/uL Lymph # (Auto) 1.25 (1.00-4.80) 10^3/uL [place] # (Auto) 0.79 (0.00-0.80) 10^3/uL Eos # (Auto) 0.27 (0.00-0.45) 10^3/uL Baso # (Auto) 0.03 10^3/uL Sodium 143 (136-145) mEq/L Potassium 3.8 (3.5-5.0) mEq/L Chloride 107 H (98-106) mEq/L Carbon Dioxide 27 (21-32) mmol/L BUN 24 H (7-18) mg/dL Creatinine 1.6 H (0.6-1.0) mg/dL Est Cr Clr Drug Dosing 22.20 mL/min Estimated GFR (MDRD) 31 L (>=60) mL/min Glucose 106 H (75-99) mg/dL POC Glucose 106 H (75-105) mg/dl Calcium 8.4 (8.4-10.1) mg/dL Robert Results Last 24 Hours: Microbiology 12/18/19 08:02 Urine Culture - Preliminary Urine, Voided Gram Negative Rods Med Orders - Current: Current Medications Acetaminophen (Tylenol) 650 mg PO Q4H PRN PRN Reason: Pain (Mild 1-3)/fever Apixaban (Eliquis) 2.5 mg PO BID [facility] Last Admin: 12/19/19 07:51 Dose: 2.5 mg Ceftriaxone Sodium (Rocephin) 1 gm IVPUSH Q24H [facility] Last Admin: 12/18/19 19:37 Dose: 1 gm Ferrous Sulfate (Ferrous Sulfate) 324 mg PO BIDMEALS [facility] Last Admin: 12/19/19 07:59 Dose: 324 mg Furosemide (Lasix) 40 mg PO DAILY [facility] Last Admin: 12/19/19 07:52 Dose: 40 mg Glipizide (Glucotrol Xl) 5 mg PO DAILY [facility] Last Admin: 12/19/19 07:52 Dose: 5 mg Levothyroxine Sodium (Levothyroxine) 125 mcg PO ACBREAKFAST [facility] Last Admin: 12/19/19 07:06 Dose: 125 mcg Magnesium Oxide (Magnesium Oxide) 1,000 mg PO DAILY [facility] Last Admin: 12/19/19 07:58 Dose: 1,000 mg Megestrol Acetate [ Megestrol Acetate] 40 Mg Tab 0 mg PO BIDMEALS [facility] Last Admin: 12/19/19 07:52 Dose: 80 mg Metoprolol Succinate [Toprol Xl] 50 Mg Tab 0 mg PO WITHDINNER [facility] Last Admin: 12/18/19 17:47 Dose: 50 mg Quinapril [Accupril] (20 Mg Tab) 0 mg PO BEDTIME [facility] Last Admin: 12/18/19 19:48 Dose: 20 mg Nystatin (Nystop) 0 gm TOP BID [facility] Sertraline HCl (Zoloft) 50 mg PO BIDMEALS [facility] Last Admin: 12/19/19 07:53 Dose: 50 mg Sodium Chloride (Saline Flush) 10 ml FLUSH ASDIRECTED PRN PRN Reason: Keep Vein Open Discontinued Medications Sodium Chloride (Normal Saline) 1,000 mls @ 75 mls/hr IV ASDIRECTED [facility] Last Admin: 12/18/19 23:59 Dose: 75 mls/hr Levothyroxine Sodium (Levothyroxine) 125 mcg PO ACBREAKFAST [facility] Nystatin (Nystop) 1 gm TOP TID PRN PRN Reason: Rash - Exam Quality Assessment: No: Supplemental Oxygen General: Alert, Oriented (currently is oriented but has been confused at times during the nights and pm. Is able to identify me today which she could not yesterday.) Neck: Supple Lungs: Clear to Auscultation, Normal Respiratory Effort Cardiovascular: Regular Rate, Regular Rhythm GI/Abdominal Exam: Normal Bowel Sounds, Soft, Non-Tender Extremities: No Pedal Edema Skin: Warm, Dry Psy/Mental Status: Alert Sepsis Event Note - Evaluation Sepsis Screening Result: No Definite Risk Possible Source of Sepsis: Genitourinary - Focused Exam Vital Signs: Vital Signs Temp Pulse Resp BP Pulse Ox 12/19/19 08:00 96.5 F L 88 22 H 104/63 99 12/19/19 04:00 98 F 85 18 124/67 97 12/19/19 00:00 99.4 F 87 18 123/60 95 Capillary Refill, Detail: Less than/Equal to (</=) 2 Seconds Skin Exam (Focused Sepsis): Normal Turgor Date Exam was Performed: 12/19/19 Time Exam was Performed: 09:54 - Problem List & Annotations (1) UTI (urinary tract infection) SNOMED Code(s): 48916075 Code(s): N39.0 - URINARY TRACT INFECTION, SITE NOT SPECIFIED Status: Acute Priority: High Current Visit: Yes Qualifiers: Urinary tract infection type: acute cystitis Hematuria presence: with hematuria Qualified Code(s): N30.01 - Acute cystitis with hematuria (2) Fall as cause of accidental injury at home as place of occurrence SNOMED Code(s): 88270980 Code(s): W19.XXXA - UNSPECIFIED FALL, INITIAL ENCOUNTER; Y92.009 - UNSP PLACE IN UNSP NON-INSTITUT (PRIVATE) RESIDENCE PLACE Status: Acute Priority: High Current Visit: Yes Qualifiers: Encounter type: initial encounter Qualified Code(s): W19.XXXA - Unspecified fall, initial encounter; Y92.009 - Unspecified place in unspecified non-institutional (private) residence as the place of occurrence of the external cause (3) Confusion SNOMED Code(s): 156565298 Code(s): R41.0 - DISORIENTATION, UNSPECIFIED Status: Acute Current Visit : Yes - Problem List Review Problem List Initiated/Reviewed/Updated: Yes - My Orders Last 24 Hours: My Active Orders 12/18/19 08:58 Patient Status [ADT] Routine Height and Weight [RC] 0600 Intake and Output [RC] 0600,1800 Oxygen Therapy [RC] .PRN Up With Assistance [RC] .PRN Vital Signs [RC] 0000,0400,0800,1200,1600,2000 PT Evaluation and Treatment [CONS] Routine Acetaminophen [Tylenol] 650 mg PO Q4H PRN Sodium Chloride 0.9% [Saline Flush] 10 ml FLUSH ASDIRECTED PRN Peripheral IV Insertion Adult [OM.PC] Routine 12/18/19 10:00 Magnesium Oxide 1,000 mg PO DAILY 12/18/19 12:00 Levothyroxine 125 mcg PO ACBREAKFAST Megestrol Acetate [Megestrol Acetate] 0 mg PO BIDMEALS Sertraline [Zoloft] 50 mg PO BIDMEALS glipiZIDE [Glucotrol XL] 5 mg PO DAILY 12/18/19 17:30 Ferrous Sulfate 324 mg PO BIDMEALS Metoprolol Succinate [Metoprolol Succinate] 0 mg PO WITHDINNER 12/18/19 20:00 Apixaban [Eliquis] 2.5 mg PO BID Quinapril [Accupril] 0 mg PO BEDTIME cefTRIAXone [Rocephin] 1 gm IVPUSH Q24H 12/19/19 08:00 Furosemide [Lasix] 40 mg PO DAILY 12/19/19 09:45 Nystatin [Nystop] See Dose Instructions TOP BID - Assessment Assessment:: pt has less confusion than yesterday. Creatinine has improved some with the IV fluids. We need to do so with care as she could easily go into CHF. Will dc IV fluids at this time as she is able to drink orally. Will make acute status as she will need continued IV antibiotics and monitoring of kidney functions.
[2019-12-19] MEDS: Nystatin Topical Powder 15 GM Bottle TOP SCH ×2 (10:52→19:30)
[2019-12-19] MEDS: Metoprolol Succinate 25 MG Tab.ER PO SCH (17:24)
[2019-12-19] MEDS: Lisinopril 10 MG Tab PO SCH (19:29)
[2019-12-19] MEDS: cefTRIAXone 1 GM Vial IVPUSH SCH (19:30)
[2019-12-20] MEDS: Levothyroxine 125 MCG Tab PO SCH (06:43)
[2019-12-20] MEDS: Sertraline 100 MG Tab PO SCH ×2 (07:47→18:45)
[2019-12-20] MEDS: Apixaban 5 MG Tab PO SCH ×2 (07:47→20:01)
[2019-12-20] MEDS: glipiZIDE 5 MG Tab.ER PO SCH (07:48)
[2019-12-20] MEDS: Furosemide 40 MG Tab PO SCH (07:48)
[2019-12-20] MEDS: Ferrous Sulfate 324 MG Tab.EC PO SCH ×2 (07:48→18:45)
[2019-12-20] MEDS: MEGESTROL ACETATE 40 MG PO SCH ×2 (07:51→18:46)
[2019-12-20] MEDS: Nystatin Topical Powder 15 GM Bottle TOP SCH ×2 (07:52→20:01)
[2019-12-20] MEDS ORDERED: Tuberculin, PPD 5 Units/0.1 ML 1 ML MDV IDERM ONE (13:12)
--- NOTE | 2019-12-20 16:33 | PN ---
DATE: 12/20/2019 S: Ms. Angel is an 84-year-old admitted on Monday by Aviva Caceres. I was not available to see her yesterday. She was admitted with a UTI after being found by 1 of her grandchildren I believe on her floor with confusion. There was a questionable head trauma. CT scan was done at the time of admission which was negative and she was found to have a UTI. She has been on IV Rocephin since admission and has clinically done better. She is having less confusion, less weakness. Overall, she feels much better. Apparently, the plan is for her to go to long-term care this upcoming Monday for long-term placement. O: VITAL SIGNS: Today, review of her chart shows her to remain afebrile. Her vitals are fine. She is saturating in the 99% on room air. GENERAL: She is pleasant and cooperative, appears in no distress. HEENT: Grossly benign. NECK: Supple. LUNGS: Diminished, but clear. CARDIAC: Tones are regular. ABDOMEN: Obese and soft. EXTREMITIES: She has scant ankle edema. LABORATORY DATA: Urine culture shows Klebsiella sensitive to her Rocephin. ASSESSMENT: 1. KLEBSIELLA URINARY TRACT INFECTION. 2. HYPERTENSION. 3. TYPE 2 DIABETES. 4. CHRONIC KIDNEY DISEASE. 5. 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 P: We will continue all current cares for now without change. She is switched to acute yesterday. She will continue to have physical therapy and be placed I believe at [facility] on Monday. MAKEDA/CHARISMA /[id number]
[2019-12-20] MEDS: Metoprolol Succinate 25 MG Tab.ER PO SCH (18:45)
[2019-12-20] MEDS: cefTRIAXone 1 GM Vial IVPUSH SCH (20:02)
[2019-12-20] MEDS: Lisinopril 10 MG Tab PO SCH (20:02)
[2019-12-21] MEDS: Levothyroxine 125 MCG Tab PO SCH (06:50)
[2019-12-21] MEDS: Furosemide 40 MG Tab PO SCH (07:50)
[2019-12-21] MEDS: Ferrous Sulfate 324 MG Tab.EC PO SCH ×2 (07:50→17:46)
[2019-12-21] MEDS: Sertraline 100 MG Tab PO SCH ×2 (07:50→17:45)
[2019-12-21] MEDS: glipiZIDE 5 MG Tab.ER PO SCH (07:50)
[2019-12-21] MEDS: Apixaban 5 MG Tab PO SCH ×2 (07:51→20:04)
[2019-12-21] MEDS: Nystatin Topical Powder 15 GM Bottle TOP SCH ×2 (07:53→22:30)
[2019-12-21] MEDS: MEGESTROL ACETATE 40 MG PO SCH ×2 (07:53→20:06)
--- NOTE | 2019-12-21 09:10 | PCM.PN ---
- General Info Date of Service: 12/21/19 Functional Status: Reports: Pain Controlled, Tolerating Diet - Review of Systems General: Reports: No Symptoms HEENT: Reports: No Symptoms Pulmonary: Reports: No Symptoms Cardiovascular: Reports: No Symptoms Gastrointestinal: Reports: No Symptoms Genitourinary: Reports: No Symptoms Musculoskeletal: Reports: No Symptoms Skin: Reports: Bruising (RUE) Neurological: Reports: No Symptoms Psychiatric: Reports: No Symptoms - Patient Data Vitals - Most Recent: Last Vital Signs Temp 98.6 F 12/21/19 07:48 Pulse 83 12/21/19 07:48 Resp 18 12/21/19 07:48 BP 116/53 L 12/21/19 07:48 Pulse Ox 98 12/21/19 07:48 Weight - Most Recent: 297 lb 8 oz Lab Results Last 24 Hours: Laboratory Results - last 24 hr 12/21/19 Range/Units 07:47 POC Glucose 108 H (75-105) mg/dl Robert Results Last 24 Hours: Microbiology 12/18/19 08:02 Urine Culture - Final Urine, Voided Klebsiella Pneumoniae Med Orders - Current: Current Medications Acetaminophen (Tylenol) 650 mg PO Q4H PRN PRN Reason: Pain (Mild 1-3)/fever Apixaban (Eliquis) 2.5 mg PO BID [facility] Last Admin: 12/21/19 07:51 Dose: 2.5 mg Ceftriaxone Sodium (Rocephin) 1 gm IVPUSH Q24H [facility] Last Admin: 12/20/19 20:02 Dose: 1 gm Ferrous Sulfate (Ferrous Sulfate) 324 mg PO BIDMEALS [facility] Last Admin: 12/21/19 07:50 Dose: 324 mg Furosemide (Lasix) 40 mg PO DAILY [facility] Last Admin: 12/21/19 07:50 Dose: 40 mg Glipizide (Glucotrol Xl) 5 mg PO DAILY [facility] Last Admin: 12/21/19 07:50 Dose: 5 mg Levothyroxine Sodium (Levothyroxine) 125 mcg PO ACBREAKFAST [facility] Last Admin: 12/21/19 06:50 Dose: 125 mcg Lisinopril (Prinivil) 10 mg PO BEDTIME [facility] Last Admin: 12/20/19 20:02 Dose: 10 mg Magnesium Oxide (Magnesium Oxide) 1,000 mg PO DAILY [facility] Last Admin: 12/21/19 07:50 Dose: 1,000 mg Metoprolol Succinate (Toprol Xl) 50 mg PO WITHDINNER [facility] Last Admin: 12/20/19 18:45 Dose: 50 mg Megestrol Acetate [ Megestrol Acetate] 40 Mg Tab 0 mg PO BIDMEALS [facility] Last Admin: 12/21/19 07:53 Dose: 2 mg Nystatin (Nystop) 0 gm TOP BID [facility] Last Admin: 12/21/19 07:53 Dose: 1 applic Sertraline HCl (Zoloft) 50 mg PO BIDMEALS [facility] Last Admin: 12/21/19 07:50 Dose: 50 mg Sodium Chloride (Saline Flush) 10 ml FLUSH ASDIRECTED PRN PRN Reason: Keep Vein Open Discontinued Medications Apixaban (Eliquis) 2.5 mg PO BID [facility] Last Admin: 12/19/19 07:51 Dose: 2.5 mg Furosemide (Lasix) 40 mg PO DAILY [facility] Last Admin: 12/19/19 07:52 Dose: 40 mg Glipizide (Glucotrol Xl) 5 mg PO DAILY [facility] Last Admin: 12/19/19 07:52 Dose: 5 mg Sodium Chloride (Normal Saline) 1,000 mls @ 75 mls/hr IV ASDIRECTED [facility] Last Admin: 12/18/19 23:59 Dose: 75 mls/hr Levothyroxine Sodium (Levothyroxine) 125 mcg PO ACBREAKFAST [facility] Levothyroxine Sodium (Levothyroxine) 125 mcg PO ACBREAKFAST [facility] Last Admin: 12/19/19 07:06 Dose: 125 mcg Metoprolol Succinate [Toprol Xl] 50 Mg Tab 0 mg PO WITHDINNER [facility] Last Admin: 12/18/19 17:47 Dose: 50 mg Quinapril [Accupril] (20 Mg Tab) 0 mg PO BEDTIME [facility] Last Admin: 12/18/19 19:48 Dose: 20 mg Nystatin (Nystop) 1 gm TOP TID PRN PRN Reason: Rash Sertraline HCl (Zoloft) 50 mg PO BIDMEALS [facility] Last Admin: 12/19/19 07:53 Dose: 50 mg Tuberculin PPD (Aplisol) 5 unit IDERM ONETIME ONE Stop: 12/20/19 13:13 Last Admin: 12/20/19 13:42 Dose: 5 unit - Exam General: Alert, Oriented, Cooperative, No Acute Distress Lungs: Clear to Auscultation, Normal Respiratory Effort Cardiovascular: Regular Rate, Regular Rhythm Back Exam: Normal Inspection, Full Range of Motion Extremities: Normal Inspection, Normal Range of Motion, Non-Tender, No Pedal Edema, Normal Capillary Refill, Other (RUE bruising, old from fall. No tenderness. ROM intact right shoulder and elbow. ) Skin: Warm, Dry, Intact, Ecchymosis (RUE) Neurological: No New Focal Deficit Psy/Mental Status: Alert, Normal Affect, Normal Mood Sepsis Event Note - Evaluation Sepsis Screening Result: No Definite Risk - Focused Exam Vital Signs: Vital Signs Temp Pulse Resp BP BP Pulse Ox 12/21/19 07:48 98.6 F 83 18 116/53 L 98 12/21/19 04:00 98.2 F 81 18 97/37 L 98 12/21/19 00:00 98.7 F 83 18 132/67 98 Date Exam was Performed: 12/21/19 Time Exam was Performed: 09:07 - Problem List Review Problem List Initiated/Reviewed/Updated: Yes - My Orders Last 24 Hours: My Active Orders 12/22/19 05:00 BMP [BASIC METABOLIC PANEL,BMP] [CHEM] Routine CBC WITH AUTO DIFF [HEME] Routine - Assessment Assessment:: pt has less confusion than yesterday. Creatinine has improved some with the IV fluids. We need to do so with care as she could easily go into CHF. Will dc IV fluids at this time as she is able to drink orally. Will make acute status as she will need continued IV antibiotics and monitoring of kidney functions. - Plan Plan:: This patient was admitted for UTI and will have custodial placement. The patient is expected custodial placement Monday. Will order some basic labs for tomorrow. Patient reports she feels fine, and has no complaints. Will continue admit.
[2019-12-21] MEDS: Metoprolol Succinate 25 MG Tab.ER PO SCH (17:46)
[2019-12-21] MEDS: Lisinopril 10 MG Tab PO SCH (20:03)
[2019-12-21] MEDS: cefTRIAXone 1 GM Vial IVPUSH SCH (20:04)
[2019-12-22] MEDS: Levothyroxine 125 MCG Tab PO SCH (06:24)
[2019-12-22] MEDS: Sertraline 100 MG Tab PO SCH ×2 (07:42→17:48)
[2019-12-22] MEDS: Ferrous Sulfate 324 MG Tab.EC PO SCH ×2 (07:43→17:48)
[2019-12-22] MEDS: glipiZIDE 5 MG Tab.ER PO SCH (07:43)
[2019-12-22] MEDS: Apixaban 5 MG Tab PO SCH ×2 (07:43→20:19)
[2019-12-22] MEDS: MEGESTROL ACETATE 40 MG PO SCH ×2 (07:44→17:50)
[2019-12-22] MEDS: Furosemide 40 MG Tab PO SCH (07:45)
[2019-12-22] MEDS: Nystatin Topical Powder 15 GM Bottle TOP SCH ×2 (07:45→20:19)
--- NOTE | 2019-12-22 14:09 | PCM.PN ---
- General Info Date of Service: 12/22/19 Functional Status: Reports: Pain Controlled, Tolerating Diet, Ambulating Pain Score: 0 - Review of Systems General: Reports: Weakness (generally, but improving) HEENT: Reports: No Symptoms Pulmonary: Reports: No Symptoms Cardiovascular: Reports: No Symptoms Gastrointestinal: Reports: No Symptoms Genitourinary: Reports: No Symptoms Musculoskeletal: Reports: No Symptoms Skin: Reports: No Symptoms Neurological: Reports: No Symptoms Psychiatric: Reports: No Symptoms - Patient Data Vitals - Most Recent: Last Vital Signs Temp 98.6 F 12/22/19 07:41 Pulse 77 12/22/19 07:41 Resp 18 12/22/19 07:41 BP 127/66 12/22/19 07:41 Pulse Ox 98 12/22/19 07:41 Weight - Most Recent: 297 lb Lab Results Last 24 Hours: Laboratory Results - last 24 hr 12/22/19 12/22/19 12/22/19 Range/Units 07:20 07:20 07:49 WBC 5.2 (5.0-10.0) 10^3/uL RBC 3.73 L (4.00-5.50) 10^6/uL Hgb 11.0 L (12.0-16.0) g/dL Hct 36.4 L (37.0-47.0) % MCV 97.6 H (82.0-94.0) fL MCH 29.5 (27.0-32.0) pg MCHC 30.2 L (33.0-38.0) g/dL RDW Coeff of Ronan 15.8 H (11.0-15.0) % Plt Count 161 (150-400) 10^3/uL Neut % (Auto) 53.6 (35-85) % Lymph % (Auto) 28.0 (10-55) % Oldham % (Auto) 12.0 (0-16) % Eos % (Auto) 6.0 H (0-5) % Baso % (Auto) 0.4 (0-3) % Neut # (Auto) 2.78 (1.80-7.00) 10^3/uL Lymph # (Auto) 1.45 (1.00-4.80) 10^3/uL Oldham # (Auto) 0.62 (0.00-0.80) 10^3/uL Eos # (Auto) 0.31 (0.00-0.45) 10^3/uL Baso # (Auto) 0.02 10^3/uL Sodium 142 (136-145) mEq/L Potassium 4.6 D (3.5-5.0) mEq/L Chloride 107 H (98-106) mEq/L Carbon Dioxide 28 (21-32) mmol/L BUN 21 H (7-18) mg/dL Creatinine 1.5 H (0.6-1.0) mg/dL Est Cr Clr Drug Dosing 23.68 mL/min Estimated GFR (MDRD) 33 L (>=60) mL/min Glucose 104 H (75-99) mg/dL POC Glucose 107 H (75-105) mg/dl Calcium 8.6 (8.4-10.1) mg/dL Med Orders - Current: Current Medications Acetaminophen (Tylenol) 650 mg PO Q4H PRN PRN Reason: Pain (Mild 1-3)/fever Apixaban (Eliquis) 2.5 mg PO BID [facility] Last Admin: 12/22/19 07:43 Dose: 2.5 mg Ceftriaxone Sodium (Rocephin) 1 gm IVPUSH Q24H [facility] Last Admin: 12/21/19 20:04 Dose: 1 gm Ferrous Sulfate (Ferrous Sulfate) 324 mg PO BIDMEALS [facility] Last Admin: 12/22/19 07:43 Dose: 324 mg Furosemide (Lasix) 40 mg PO DAILY [facility] Last Admin: 12/22/19 07:45 Dose: 40 mg Glipizide (Glucotrol Xl) 5 mg PO DAILY [facility] Last Admin: 12/22/19 07:43 Dose: 5 mg Levothyroxine Sodium (Levothyroxine) 125 mcg PO ACBREAKFAST [facility] Last Admin: 12/22/19 06:24 Dose: 125 mcg Lisinopril (Prinivil) 10 mg PO BEDTIME [facility] Last Admin: 12/21/19 20:03 Dose: 10 mg Magnesium Oxide (Magnesium Oxide) 1,000 mg PO DAILY [facility] Last Admin: 12/22/19 07:42 Dose: 1,000 mg Metoprolol Succinate (Toprol Xl) 50 mg PO WITHDINNER [facility] Last Admin: 12/21/19 17:46 Dose: 50 mg Megestrol Acetate [ Megestrol Acetate] 40 Mg Tab 0 mg PO BIDMEALS [facility] Last Admin: 12/22/19 07:44 Dose: 40 mg Nystatin (Nystop) 0 gm TOP BID [facility] Last Admin: 12/22/19 07:45 Dose: 1 applic Sertraline HCl (Zoloft) 50 mg PO BIDMEALS [facility] Last Admin: 12/22/19 07:42 Dose: 50 mg Sodium Chloride (Saline Flush) 10 ml FLUSH ASDIRECTED PRN PRN Reason: Keep Vein Open Discontinued Medications Apixaban (Eliquis) 2.5 mg PO BID [facility] Last Admin: 12/19/19 07:51 Dose: 2.5 mg Furosemide (Lasix) 40 mg PO DAILY [facility] Last Admin: 12/19/19 07:52 Dose: 40 mg Glipizide (Glucotrol Xl) 5 mg PO DAILY [facility] Last Admin: 12/19/19 07:52 Dose: 5 mg Sodium Chloride (Normal Saline) 1,000 mls @ 75 mls/hr IV ASDIRECTED [facility] Last Admin: 12/18/19 23:59 Dose: 75 mls/hr Levothyroxine Sodium (Levothyroxine) 125 mcg PO ACBREAKFAST [facility] Levothyroxine Sodium (Levothyroxine) 125 mcg PO ACBREAKFAST [facility] Last Admin: 12/19/19 07:06 Dose: 125 mcg Metoprolol Succinate [Toprol Xl] 50 Mg Tab 0 mg PO WITHDINNER [facility] Last Admin: 12/18/19 17:47 Dose: 50 mg Quinapril [Accupril] (20 Mg Tab) 0 mg PO BEDTIME [facility] Last Admin: 12/18/19 19:48 Dose: 20 mg Nystatin (Nystop) 1 gm TOP TID PRN PRN Reason: Rash Sertraline HCl (Zoloft) 50 mg PO BIDMEALS [facility] Last Admin: 12/19/19 07:53 Dose: 50 mg Tuberculin PPD (Aplisol) 5 unit IDERM ONETIME ONE Stop: 12/20/19 13:13 Last Admin: 12/20/19 13:42 Dose: 5 unit - Exam General: Alert, Oriented, Cooperative, No Acute Distress Neck: Supple Lungs: Clear to Auscultation, Normal Respiratory Effort Cardiovascular: Regular Rate, Regular Rhythm GI/Abdominal Exam: Soft, Non-Tender Back Exam: Normal Inspection Extremities: Normal Inspection, Normal Range of Motion, Non-Tender, No Pedal Edema, Normal Capillary Refill Peripheral Pulses: 2+: Radial (L), Radial (R), Posterior Tibial (L), Posterior Tibial (R) Skin: Warm, Dry, Intact, Ecchymosis (RUE) Psy/Mental Status: Alert, Normal Affect, Normal Mood Sepsis Event Note - Evaluation Sepsis Screening Result: No Definite Risk - Focused Exam Vital Signs: Vital Signs Temp Pulse Resp BP Pulse Ox 12/22/19 07:41 98.6 F 77 18 127/66 98 Date Exam was Performed: 12/22/19 Time Exam was Performed: 19:49 - Problem List Review Problem List Initiated/Reviewed/Updated: Yes - My Orders Last 24 Hours: My Active Orders 12/21/19 17:26 Vital Signs [RC] 799,1999 - Assessment Assessment:: pt has less confusion than yesterday. Creatinine has improved some with the IV fluids. We need to do so with care as she could easily go into CHF. Will dc IV fluids at this time as she is able to drink orally. Will make acute status as she will need continued IV antibiotics and monitoring of kidney functions. - Plan Plan:: 12/21/2019 0820 This patient was admitted for UTI and will have long-term placement. The patient is expected long-term placement Monday. Will order some basic labs for tomorrow. Patient reports she feels fine, and has no complaints. Will continue admit. 12/22/2019 1400 This patient reports generalized weakness, but reports this is actually improving day by day. Today, she reports she was able to get up with walker without assistance, take a shower and dress herself. Patient labs are unremarkable and patient baseline. Will continue admit and have social media assistant arrange and discuss long-term placement tomorrow.
[2019-12-22] MEDS: Metoprolol Succinate 25 MG Tab.ER PO SCH (17:49)
[2019-12-22] MEDS: Lisinopril 10 MG Tab PO SCH (20:19)
[2019-12-22] MEDS: cefTRIAXone 1 GM Vial IVPUSH SCH (20:19)
[2019-12-23] MEDS: Levothyroxine 125 MCG Tab PO SCH (06:15)
[2019-12-23] MEDS: Sertraline 100 MG Tab PO SCH (08:01)
[2019-12-23] MEDS: Apixaban 5 MG Tab PO SCH (08:02)
[2019-12-23] MEDS: Furosemide 40 MG Tab PO SCH (08:02)
[2019-12-23] MEDS: glipiZIDE 5 MG Tab.ER PO SCH (08:02)
[2019-12-23] MEDS: Ferrous Sulfate 324 MG Tab.EC PO SCH (08:03)
[2019-12-23] MEDS: Nystatin Topical Powder 15 GM Bottle TOP SCH (08:03)
[2019-12-23] MEDS: MEGESTROL ACETATE 40 MG PO SCH (08:04)
[2019-12-23 08:08] VITALS: BP 118/48; PULSE 79
--- NOTE | 2019-12-24 08:16 | DISCH ---
REASON FOR HOSPITALIZATION: 1. Fall. 2. Confusion. 3. Urinary tract infection. DISCHARGE DIAGNOSIS: 1. KLEBSIELLA URINARY TRACT INFECTION. 2. FALL WITH MINOR CLOSED HEAD INJURY. 3. HYPERTENSION. 4. TYPE 2 DIABETES. 5. CHRONIC KIDNEY DISEASE. 6. 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 7. UTERINE HYPERPLASIA WITH UTERINE BLEEDING, CURRENTLY STABLE. HISTORY: The patient is an 84-year-old at risk female who suffers from morbid obesity. She came in after 1 of her grandchildren found her lying on the floor with a minor closed head injury from a fall. CT scan was done of the head which was negative. She was having some confusion and disorientation. She was found to have a UTI. We admitted her to the hospital for appropriate cares. HOSPITAL COURSE: The patient did well while here. She was put on IV Rocephin. Urine culture ultimately showed Klebsiella sensitive to Rocephin. She has been on 1 g IV everyday and she has had a nice response. Her confusion essentially completely resolved within 48 hours. She was slightly dehydrated and that was improved with IV fluids. She does have a hard time with her ADLs at home and we felt she was an excellent candidate for rehab at [facility]. She has had an uneventful hospital course after being treated for her infection. For the most part, she is back to her baseline. The patient does have chronic comorbidities including hypertension, diabetes, history of PEs. She is anticoagulated. Unfortunately, has been having some uterine bleeding from hyperplasia that currently is stable after MEAT INSPECTOR put her on Megace. We will continue all of her previous care. She will have another 7 days of oral Ceftin and repeat UA/UC in 1 weeks' time. COMPLICATIONS: During her stay were none. CONSULTATIONS: PT. DISPOSITION: Discharged to [facility]. MAKEDA/CHARISMA /[id number]
== END 2019-12-23 10:08 | DRG 689 ==
LOC: CC.ED 06:36 → UNDOADMOB 08:28 → CC.MS 08:28 → OBSVTOIN 12-19 09:45
PROVIDERS: ADMIT Physician Assistant Medical; ATTEND Family Medicine
DX: R41.0 Disorientation, unspecified (principal); N30.01 Acute cystitis with hematuria; G93.41 Metabolic encephalopathy; I10 Essential (primary) hypertension; I48.92 Unspecified atrial flutter; B96.1 Klebsiella pneumoniae [K. pneumoniae] as the cause of diseases classified elsewhere; I12.9 Hypertensive chronic kidney disease with stage 1 through stage 4 chronic kidney disease, or unspecified chronic kidney disease; N18.9 Chronic kidney disease, unspecified; E11.22 Type 2 diabetes mellitus with diabetic chronic kidney disease; N85.2 Hypertrophy of uterus; S09.90XA Unspecified injury of head, initial encounter; E11.9 Type 2 diabetes mellitus without complications; E20.9 Hypoparathyroidism, unspecified; Z98.49 Cataract extraction status, unspecified eye; W19.XXXA Unspecified fall, initial encounter; E66.01 Morbid (severe) obesity due to excess calories; E86.0 Dehydration; N93.9 Abnormal uterine and vaginal bleeding, unspecified; R40.2412 Glasgow coma scale score 13-15, at arrival to emergency department; K21.9 Gastro-esophageal reflux disease without esophagitis; Z79.899 Other long term (current) drug therapy; Z88.6 Allergy status to analgesic agent; R32 Unspecified urinary incontinence; M19.90 Unspecified osteoarthritis, unspecified site; E21.3 Hyperparathyroidism, unspecified; Z96.643 Presence of artificial hip joint, bilateral; Z96.651 Presence of right artificial knee joint; Z79.01 Long term (current) use of anticoagulants; Z86.711 Personal history of pulmonary embolism; Z88.5 Allergy status to narcotic agent; Z79.890 Hormone replacement therapy; Z79.84 Long term (current) use of oral hypoglycemic drugs; Z87.11 Personal history of peptic ulcer disease; Z98.84 Bariatric surgery status; Z90.89 Acquired absence of other organs; Y92.009 Unspecified place in unspecified non-institutional (private) residence as the place of occurrence of the external cause
CPT/HCPCS: 36415; 70450; 80048; 80053; 81001; 82150; 82962; 83605; 85025; 85610; 86580; 87086; 87088; 87186; 96361; 96374; 97110-GP; 97116-GP; 97161-GP; 99220; 99285-25; A9270-GY; G0378; J0696; J7030

== ENCOUNTER 2020-09-17 05:14 | Inpatient (IN) | payer MEDICARE, OTHER ==
--- NOTE | 2020-09-17 06:05 | EDM.PDOC ---
ED HPI GENERAL MEDICAL PROBLEM - General Chief Complaint: General Stated Complaint: weakness, vaginal bleeding Time Seen by Provider: 09/17/20 05:42 Source of Information: Reports: Patient History Limitations: Reports: No Limitations - History of Present Illness INITIAL COMMENTS - FREE TEXT/NARRATIVE: Josiane is an 84 year old female who presents to ER with complaints of increased vaginal bleeding. Has had issues with this for some time now. Has seen gynecology for this. Endometrial biopsy has been done in the past which was benign. Patient relates chose not to do a hysterectomy because of her age and health conditions and "just gave her a pill". She admits she had been doing quite well for some time now until a week ago. Started noting more thin vaginal bleeding with more clots. This am, was weak in her legs and grandson reports was more confused. She does recognize this provider by name on my arrival and able to relate events that led to calling EMS. patient denies any fevers. Appetite is fair but relates has been like this for some time now. No nausea or vomiting. No diarrhea. Dudley more short of breath than her usual. PMH is significant for Type 2 DM. Pulmonary emboli, currently on Eliquis. HTN. Hypothyroidism. OBS Onset: Gradual Duration: Day(s):, Getting Worse Location: Reports: Generalized Associated Symptoms: Reports: Confusion, Loss of Appetite, Malaise, Shortness of Breath, Weakness. Denies: Chest Pain, Cough, Fever/Chills, Nausea/Vomiting - Related Data Allergies Allergy/AdvReac Type Severity Reaction Status Date / Time tramadol AdvReac Hallucinati Verified 09/17/20 05:41 ons Home Meds: Home Meds Furosemide [Lasix] 40 mg PO DAILY 05/11/15 [History] Levothyroxine 125 mcg PO DAILY 05/11/15 [History] Quinapril [Accupril] 20 mg PO DAILY 05/11/15 [History] Sertraline [Zoloft] 50 mg PO BID 05/11/15 [History] Metoprolol Succinate 50 mg PO QPM 12/04/18 [History] Nystatin 1 applic TOP TID PRN 12/04/18 [History] glipiZIDE [Glipizide ER] 5 mg PO DAILY 09/03/19 [History] Apixaban [Eliquis] 2.5 mg PO BID #60 tablet 10/30/19 [Rx] Ferrous Sulfate 324 mg PO BIDMEALS #60 tab.ec 10/30/19 [Rx] Megestrol Acetate 40 mg PO BID 11/02/19 [History] Magnesium Oxide [Magnesium] 1,000 mg PO DAILY 11/03/19 [Rx] Oxybutynin 5 mg PO BEDTIME 09/17/20 [History] Past Medical History Cardiovascular History: Reports: Heart Murmur, Hypertension, Other (See Below) Other Cardiovascular History: A FLUTTER Respiratory History: Reports: PE Gastrointestinal History: Reports: GERD, Hemorrhoids, PUD Genitourinary History: Reports: Urinary Incontinence Other Genitourinary History: Hematuria, with blood clots MUTUAL FUND MANAGER History: Reports: Other MUTUAL FUND MANAGER History: VAGINAL BLEEDING Musculoskeletal History: Reports: Arthritis Endocrine/Metabolic History: Reports: Diabetes, Type II, Hypoparathyroidism Hematologic History: Reports: Anticoagulation Therapy Other Hematologic History: On eliquis Dermatologic History: Reports: Other (See Below) Other Dermatologic History: Yeasty rash under abdominal fold. - Past Surgical History HEENT Surgical History: Reports: Cataract Surgery GI Surgical History: Reports: Appendectomy, Bariatric Procedure, Hernia Repair/Other Other GI Surgeries/Procedures: hemorrhoid surgery. gastric bypass Female Surgical History: Reports: Other (See Below) Other Female Surgeries/Procedures: biopsy Musculoskeletal Surgical History: Reports: Hip Replacement, Knee Replacement Other Musculoskeletal Surgeries/Procedures:: Bilateral hip, right knee Social & Family History - Family History Family Medical History: No Pertinent Family History - Tobacco Use Tobacco Use Status *Q: Never Tobacco User - Caffeine Use Caffeine Use: Reports: Coffee, Soda - Recreational Drug Use Recreational Drug Use: No - Living Situation & Occupation Living situation: Reports: , with Family (grandson) Occupation: Retired ED [employer] [employer] [facility] - Review of Systems Review Of Systems: See Below Constitutional: Reports: Malaise, Weakness, Fatigue. Denies: Fever, Chills HEENT: Denies: Ear Pain, Rhinitis, Sinus Problem, Throat Pain, Vertigo Respiratory: Reports: Shortness of Breath. Denies: Cough Cardiovascular: Reports: Lightheadedness. Denies: Chest Pain, Edema Endocrine: Reports: Fatigue GI/Abdominal: Reports: Decreased Appetite. Denies: Abdominal Pain, Constipation, Diarrhea, Nausea, Vomiting : Reports: Other (vaginal bleeding) Musculoskeletal: Reports: No Symptoms Skin: Reports: No Symptoms Neurological: Reports: Weakness ED EXAM, GENERAL - Physical Exam Exam: See Below Exam Limited By: No Limitations General Appearance: Alert, WD/WN, No Apparent Distress Ears: Normal External Exam, Normal TMs Nose: Normal Inspection, Normal Mucosa, No Blood Throat/Mouth: Normal Inspection, Other (mucous membranes dry) Head: Normocephalic Neck: Normal Inspection, Supple, Non-Tender Respiratory/Chest: No Respiratory Distress, Lungs Clear, Normal Breath Sounds Cardiovascular: Regular Rate, Rhythm, No Edema GI/Abdominal: Normal Bowel Sounds, Soft, Non-Tender (Female) Exam: Vaginal Bleeding (has a small amount of blood currently on pad. Did pass small clot when up to commode) Extremities: Normal Inspection, No Pedal Edema Neurological: Alert, Oriented (person and place) Skin Exam: Warm, Dry Course - Vital Signs Last Recorded V/S: Last Vital Signs Temp 98 F 09/17/20 05:18 Pulse 78 09/17/20 05:18 Resp 14 09/17/20 05:18 BP 123/48 L 09/17/20 05:18 Pulse Ox 99 09/17/20 05:18 - Orders/Labs/Meds Orders: Active Orders 24 hr Category Date Time Status Patient Status Manage Transfer [TRANSFER] Routine ADT 09/17/20 06:37 Active TYPE AND SCREEN [BBK] Stat Lab 09/17/20 06:05 Ordered UA RFX PATRICIO AND CULT IF INDIC [URIN] Stat Lab 09/17/20 05:52 Ordered Resuscitation Status Routine Resus Stat 09/17/20 06:38 Ordered Labs: Laboratory Tests 09/17/20 09/17/20 Range/Units 05:46 05:46 WBC 12.4 H (5.0-10.0) 10^3/uL RBC 1.60 L (4.00-5.50) 10^6/uL Hgb 5.2 L* (12.0-16.0) g/dL Hct 17.9 L* (37.0-47.0) % MCV 111.9 H (82.0-94.0) fL MCH 32.5 H (27.0-32.0) pg MCHC 29.1 L (33.0-38.0) g/dL RDW Coeff of Ronan 17.6 H (11.0-15.0) % Plt Count 210 (150-400) 10^3/uL Add Manual Diff Yes Neutrophils % (Manual) 68 (35-85) % Band Neutrophils % 3 (0-5) % Lymphocytes % (Manual) 18 L (21-55) % Monocytes % (Manual) 10 (2-12) % Eosinophils % (Manual) 1 (0-5) % Nucleated RBCs 2 (0-5) /100WBC Sodium 137 (136-145) mEq/L Potassium 4.8 (3.5-5.0) mEq/L Chloride 102 (98-106) mEq/L Carbon Dioxide 24 (21-32) mmol/L BUN 49 H D (7-18) mg/dL Creatinine 3.0 H* D (0.6-1.0) mg/dL Est Cr Clr Drug Dosing 12.83 mL/min Estimated GFR (MDRD) 15 L (>=60) mL/min Glucose 264 H (75-99) mg/dL Calcium 8.3 L (8.4-10.1) mg/dL C-Reactive Protein 1.8 H (0.2-0.8) mg/dL - Re-Assessments/Exams Free Text/Narrative Re-Assessment/Exam: 09/17/20 06:51 Lab results are noted. Hemoglobin down to 5.2, creatinine 3.0. Historically creatinine around 1.7 to 1.9. Did discuss treatment options with patient, code status. Is DNR. Reviewed all charts, unable to find gynecology notes or mention of any medication that was given to patient. Contacted [facility] and spoke with ER physician in regards to current labs, last transfer to them and further plan. He advised to discuss aggressiveness of treatment with family and if treatment would include gynecology care, ie. D & C or hysterectomy, aggressive treatment of bleeding, would accept the patient in transfer. If lean more to comfort cares and correcting concerns as able, keep here. Again discussed with patient, requested to contact her grandson. Spoke with Jamie, does not want aggressive care as risk of surgery may likely lead to . Is aware that no surgery and blood transfusion and holding Eliquis may lead to as well. Patient and grandson are aware of severity of concerns and correcting anemia and ATIF could lead to CHF as well but choose to stay here in [place] for treatment as able. Departure - Departure Time of Disposition: 06:45 Disposition: Admitted As Inpatient 65 Condition: Serious Clinical Impression: Vaginal bleeding, abnormal - Discharge Information *PRESCRIPTION DRUG MONITORING PROGRAM REVIEWED*: No *COPY OF PRESCRIPTION DRUG MONITORING REPORT IN PATIENT GAGE: No Forms: ED Department Discharge Additional Instructions: Admit to inpatient Sepsis Event Note (ED) - Evaluation Sepsis Screening Result: No Definite Risk - Focused Exam Vital Signs: Vital Signs Temp Pulse Resp BP Pulse Ox 09/17/20 05:18 98 F 78 14 123/48 L 99 - Problem List & Annotations (1) ATIF (acute kidney injury) SNOMED Code(s): 89827612, 97802809 Code(s): N17.9 - ACUTE KIDNEY FAILURE, UNSPECIFIED Status: Acute Priority: High Current Visit: Yes (2) Confusion SNOMED Code(s): 358925084 Code(s): R41.0 - DISORIENTATION, UNSPECIFIED Status: Acute Priority: High Current Visit: Yes (3) Dehydration symptoms SNOMED Code(s): 688755028 Code(s): R63.8 - OTHER SYMPTOMS AND SIGNS CONCERNING FOOD AND FLUID INTAKE Status: Acute Priority: High Current Visit: Yes (4) Vaginal bleeding, abnormal SNOMED Code(s): 820074944 Code(s): N93.9 - ABNORMAL UTERINE AND VAGINAL BLEEDING, UNSPECIFIED Status: Acute Priority: High Current Visit: Yes (5) Palliative care patient SNOMED Code(s): 408847677, 001035124 Code(s): Z51.5 - ENCOUNTER FOR PALLIATIVE CARE Status: Acute Current Visit: Yes - Problem List Review Problem List Initiated/Reviewed/Updated: Yes - My Orders Last 24 Hours: My Active Orders 09/17/20 05:52 UA RFX PATRICIO AND CULT IF INDIC [URIN] Stat 09/17/20 06:05 TYPE AND SCREEN [BBK] Stat 09/17/20 06:37 Patient Status Manage Transfer [TRANSFER] Routine 09/17/20 06:38 Resuscitation Status Routine - Assessment/Plan Admission H&P: Please use this note as an admission H&P Last 24 Hours: My Active Orders 09/17/20 05:52 UA RFX PATRICIO AND CULT IF INDIC [URIN] Stat 09/17/20 06:05 TYPE AND SCREEN [BBK] Stat 09/17/20 06:37 Patient Status Manage Transfer [TRANSFER] Routine 09/17/20 06:38 Resuscitation Status Routine Assessment:: Abnormal vaginal bleeding Dehydration Confusion Palliative care patient ATIF
[2020-09-17] MEDS ORDERED: Nystatin Topical Powder 15 GM Bottle TOP PRN (07:01)
[2020-09-17] MEDS ORDERED: Ondansetron 4 MG/2 ML SDV IV PRN (07:03)
[2020-09-17] MEDS ORDERED: Temazepam 15 MG Cap PO PRN (07:03)
[2020-09-17] MEDS ORDERED: Ondansetron 4 MG Tab.DIS PO PRN (07:03)
[2020-09-17] MEDS ORDERED: Sodium Chloride 0.9% 10 ML Syringe FLUSH PRN (07:03)
[2020-09-17] MEDS: Sertraline 25 MG Tab PO SCH ×2 (07:49→19:19)
[2020-09-17] MEDS: glipiZIDE 5 MG Tab.ER PO SCH (07:50)
[2020-09-17] MEDS: Furosemide 40 MG Tab PO SCH (07:50)
[2020-09-17] MEDS: Ferrous Sulfate 324 MG Tab.EC PO SCH ×2 (07:50→18:44)
[2020-09-17] MEDS: Levothyroxine 125 MCG Tab PO SCH (07:50)
[2020-09-17] MEDS ORDERED: MEGESTROL ACETATE 40 MG PO SCH (08:00)
[2020-09-17] MEDS: Lisinopril 10 MG Tab PO SCH (09:42)
[2020-09-17] MEDS: Acetaminophen 325 MG Tab PO PRN (15:23)
[2020-09-17] MEDS: Metoprolol Succinate 25 MG Tab.ER PO SCH (19:19)
[2020-09-17] MEDS: Oxybutynin 5 MG Tab PO SCH (19:19)
[2020-09-17] MEDS: MEGESTROL ACETATE 40 MG PO SCH (19:20)
[2020-09-17] MEDS: Sodium Chloride 0.9% 1,000 ML IV SCH (22:57)
[2020-09-18] MEDS: glipiZIDE 5 MG Tab.ER PO SCH (07:41)
[2020-09-18] MEDS: Furosemide 40 MG Tab PO SCH (07:42)
[2020-09-18] MEDS: Ferrous Sulfate 324 MG Tab.EC PO SCH ×2 (07:42→17:01)
[2020-09-18] MEDS: Sertraline 25 MG Tab PO SCH ×2 (07:42→19:35)
[2020-09-18] MEDS: Levothyroxine 125 MCG Tab PO SCH (07:42)
[2020-09-18] MEDS: Lisinopril 10 MG Tab PO SCH (07:43)
[2020-09-18] MEDS: MEGESTROL ACETATE 40 MG PO SCH ×2 (07:43→19:35)
[2020-09-18] MEDS: Sodium Chloride 0.9% 1,000 ML IV SCH (08:58)
--- NOTE | 2020-09-18 09:03 | PCM.PN ---
- General Info Date of Service: 09/18/20 Functional Status: Reports: Pain Controlled, Other (sitting in the chair, able to sit up. ). Denies: Tolerating Diet (did not eat well this morning breakfast) - Review of Systems General: Reports: Weakness (generally), Fatigue, Malaise, Appetite (decreased) HEENT: Reports: No Symptoms Pulmonary: Reports: No Symptoms. Denies: Shortness of Breath Cardiovascular: Reports: No Symptoms Gastrointestinal: Reports: No Symptoms Genitourinary: Reports: Other (vaginal bleeding) Musculoskeletal: Reports: No Symptoms Skin: Reports: No Symptoms Neurological: Reports: No Symptoms Psychiatric: Reports: No Symptoms - Patient Data Vitals - Most Recent: Last Vital Signs Temp 98.2 F 09/18/20 08:00 Pulse 70 09/18/20 08:00 Resp 18 09/18/20 08:00 BP 116/49 L 09/18/20 08:00 Pulse Ox 96 09/18/20 08:00 Weight - Most Recent: 289 lb 4.8 oz Lab Results Last 24 Hours: Laboratory Results - last 24 hr 09/17/20 09/17/20 09/17/20 Range/Units 06:05 10:00 14:05 WBC (5.0-10.0) 10^3/uL RBC (4.00-5.50) 10^6/uL Hgb 7.3 L* (12.0-16.0) g/dL Hct (37.0-47.0) % MCV (82.0-94.0) fL MCH (27.0-32.0) pg MCHC (33.0-38.0) g/dL RDW Coeff of Ronan (11.0-15.0) % Plt Count (150-400) 10^3/uL MPV fL Sodium (136-145) mEq/L Potassium (3.5-5.0) mEq/L Chloride (98-106) mEq/L Carbon Dioxide (21-32) mmol/L BUN (7-18) mg/dL Creatinine (0.6-1.0) mg/dL Est Cr Clr Drug Dosing mL/min Estimated GFR (MDRD) (>=60) mL/min Glucose (75-99) mg/dL POC Glucose (75-105) mg/dl Calcium (8.4-10.1) mg/dL Total Bilirubin (0.0-1.0) mg/dL AST (15-37) U/L ALT (12-78) U/L Alkaline Phosphatase (46-116) U/L C-Reactive Protein (0.2-0.8) mg/dL Total Protein (6.4-8.2) g/dL Albumin (3.4-5.0) g/dL Urine Color Red (YELLOW) Urine Appearance Slightly cloudy (CLEAR) Urine pH 5.0 (4.5-8.0) Ur Specific [place] 1.025 H (1.003-1.020) Urine Protein 100 H (NEGATIVE) mg/dL Urine Glucose (UA) Negative (NEGATIVE) mg/dL Urine Ketones Negative (NEGATIVE) mg/dL Urine Occult Blood Large H (NEGATIVE) Urine Nitrite Negative (NEGATIVE) Urine Bilirubin Small H (NEGATIVE) Urine Urobilinogen 0.2 (0.2-1.0) EU/dL Ur Leukocyte Esterase Small H (NEGATIVE) Urine RBC >100 H (0-5) /HPF Urine WBC 50-75 H (0-5) /HPF Ur Epithelial Cells Few H (NOT SEEN) /HPF Urine Bacteria Few H (NOT SEEN) /HPF Blood Type A POSITIVE Gel Antibody Screen Negative Crossmatch See Detail 09/18/20 09/18/20 09/18/20 Range/Units 05:11 05:11 07:40 WBC 9.4 (5.0-10.0) 10^3/uL RBC 2.23 L (4.00-5.50) 10^6/uL Hgb 7.3 L* (12.0-16.0) g/dL Hct 23.7 L (37.0-47.0) % MCV 106.3 H (82.0-94.0) fL MCH 32.7 H (27.0-32.0) pg MCHC 30.8 L (33.0-38.0) g/dL RDW Coeff of Ronan 18.4 H (11.0-15.0) % Plt Count 144 L (150-400) 10^3/uL MPV 9.2 fL Sodium 137 (136-145) mEq/L Potassium 4.8 (3.5-5.0) mEq/L Chloride 105 (98-106) mEq/L Carbon Dioxide 25 (21-32) mmol/L BUN 42 H (7-18) mg/dL Creatinine 2.4 H (0.6-1.0) mg/dL Est Cr Clr Drug Dosing 16.04 mL/min Estimated GFR (MDRD) 19 L (>=60) mL/min Glucose 158 H D (75-99) mg/dL POC Glucose 247 H (75-105) mg/dl Calcium 7.9 L (8.4-10.1) mg/dL Total Bilirubin 0.8 (0.0-1.0) mg/dL AST 19 (15-37) U/L ALT 16 (12-78) U/L Alkaline Phosphatase 65 (46-116) U/L C-Reactive Protein 1.9 H (0.2-0.8) mg/dL Total Protein 6.1 L (6.4-8.2) g/dL Albumin 2.6 L (3.4-5.0) g/dL Urine Color (YELLOW) Urine Appearance (CLEAR) Urine pH (4.5-8.0) Ur Specific [place] (1.003-1.020) Urine Protein (NEGATIVE) mg/dL Urine Glucose (UA) (NEGATIVE) mg/dL Urine Ketones (NEGATIVE) mg/dL Urine Occult Blood (NEGATIVE) Urine Nitrite (NEGATIVE) Urine Bilirubin (NEGATIVE) Urine Urobilinogen (0.2-1.0) EU/dL Ur Leukocyte Esterase (NEGATIVE) Urine RBC (0-5) /HPF Urine WBC (0-5) /HPF Ur Epithelial Cells (NOT SEEN) /HPF Urine Bacteria (NOT SEEN) /HPF Blood Type Gel Antibody Screen Crossmatch Med Orders - Current: Current Medications Acetaminophen (Tylenol) 650 mg PO Q4H PRN PRN Reason: Pain (Mild 1-3)/fever Last Admin: 09/17/20 15:23 Dose: 650 mg Documented by: Ferrous Sulfate (Ferrous Sulfate) 324 mg PO BIDMEALS [facility] Last Admin: 09/18/20 07:42 Dose: 324 mg Documented by: Furosemide (Lasix) 40 mg PO DAILY [facility] Last Admin: 09/18/20 07:42 Dose: 40 mg Documented by: Glipizide (Glucotrol Xl) 5 mg PO DAILY [facility] Last Admin: 09/18/20 07:41 Dose: 5 mg Documented by: Sodium Chloride (Normal Saline) 1,000 mls @ 100 mls/hr IV ASDIRECTED [facility] Last Admin: 09/17/20 22:57 Dose: 100 mls/hr Documented by: Levothyroxine Sodium (Levothyroxine) 125 mcg PO ACBREAKFAST [facility] Last Admin: 09/18/20 07:42 Dose: 125 mcg Documented by: Lisinopril (Prinivil) 10 mg PO DAILY [facility] Last Admin: 09/18/20 07:43 Dose: Not Given Documented by: Magnesium Oxide (Magnesium Oxide) 1,000 mg PO DAILY [facility] Last Admin: 09/18/20 07:41 Dose: 1,000 mg Documented by: Metoprolol Succinate (Toprol Xl) 50 mg PO QPM [facility] Last Admin: 09/17/20 19:19 Dose: Not Given Documented by: Megestrol Acetate [ Megestrol Acetate] 40 Mg Ptom 0 mg PO BID [facility] Last Admin: 09/18/20 07:43 Dose: 80 mg Documented by: Nystatin (Nystop) 0 gm TOP TID PRN PRN Reason: Rash Ondansetron HCl (Zofran Odt) 4 mg PO Q4H PRN PRN Reason: nausea, able to take PO Ondansetron HCl (Zofran) 4 mg IV Q4H PRN PRN Reason: Nausea/Vomiting Oxybutynin Chloride (Oxybutynin) 5 mg PO BEDTIME [facility] Last Admin: 09/17/20 19:19 Dose: 5 mg Documented by: Sertraline HCl (Zoloft) 50 mg PO BID [facility] Last Admin: 09/18/20 07:42 Dose: 50 mg Documented by: Sodium Chloride (Saline Flush) 10 ml FLUSH ASDIRECTED PRN PRN Reason: Keep Vein Open Temazepam (Restoril) 15 mg PO BEDTIME PRN PRN Reason: Sleep Discontinued Medications Megestrol Acetate [ Megestrol Acetate] 40 Mg Ptom 0 mg PO BID [facility] Last Admin: 09/17/20 12:25 Dose: 40 mg Documented by: - Exam General: Alert, Oriented (she is oriented to self, place, and year. However, she does not know today is [place], even when I ask her what big Holiday is today. ) HEENT: Pupils Equal, Pupils Reactive, Other (pallor mucousa/conjucta) Neck: Supple, Trachea Midline Lungs: Clear to Auscultation, Normal Respiratory Effort Cardiovascular: Regular Rate (74), Regular Rhythm GI/Abdominal Exam: Soft, Non-Tender, Other (unable to find landmarks on exam due to obesity) Back Exam: Normal Inspection. No: CVA Tenderness (L), CVA Tenderness (R) Extremities: Normal Inspection, Normal Range of Motion, Non-Tender, No Pedal Edema, Normal Capillary Refill Peripheral Pulses: 2+: Radial (L), Radial (R), Posterior Tibial (L), Posterior Tibial (R), Dorsalis Pedis (L), Dorsalis Pedis (R) Skin: Warm, Dry, Intact Neurological: No New Focal Deficit, Normal Speech, Strength Equal Bilateral Psy/Mental Status: Alert, Normal Affect, Normal Mood Sepsis Event Note - Evaluation Sepsis Screening Result: No Definite Risk - Focused Exam Vital Signs: Vital Signs Temp Pulse Resp BP BP Pulse Ox 09/18/20 08:00 98.2 F 70 18 116/49 L 96 09/18/20 07:43 116/49 L 09/18/20 04:00 98.7 F 71 20 122/46 L 98 09/18/20 00:00 98.8 F 71 20 110/36 L 96 - Problem List Review Problem List Initiated/Reviewed/Updated: Yes - My Orders Last 24 Hours: My Active Orders 09/18/20 08:51 Transfuse PRBC [Transfuse Red Blood Cells] [COMM] Stat 09/18/20 16:00 HEMOGLOBIN/HEMATOCRIT,HH [HEME] Routine 09/19/20 05:00 BASIC METABOLIC PANEL,BMP [CHEM] DAILY CBC WITH AUTO DIFF [HEME] DAILY 09/20/20 05:00 BASIC METABOLIC PANEL,BMP [CHEM] DAILY CBC WITH AUTO DIFF [HEME] DAILY - Plan Plan:: This patient is an 84 year old female that was admitted yesterday due to chronic vaginally bleeding. Patient has a known history of vaginal bleeding, that needs surgery to correct the problem, but the patient has refused surgery. The patient reports that she is 84 years old and does not want any surgeries or anything invasive. She reports that she will take medications and blood. She was prescribed Megestrol 40mg BID, but it is unknown if she was taking these at home, as pharmacy reported she has had a refill available for sampler pickup for a long time. She was able to bring some of these pills from home. I am unsure if she was taking, or taking as prescribed, patient does not know either. Femi Caceres s poke to MACHINE GUIDE BASE WINDER yesterday, instructed to increase her medication to 80mg BID. This was ordered. Yesterday her hgb was 5.2, transfused 2 units PRBCs, repeat was 7.3 hgb. This morning the hgb remains the same at 7.3. However, patient today continues to have active bleeding. Her medication was increased to Megestrol 80mg BID. Today, she is symptomatic. She reports she generally does not feel very well, she is generally weak, nauseated. Her mucosa is pallor, her BP is lower than her baseline. Her HTN medication has been held. Due to her active bleeding, and symptomatic, I will transfuse an additional 2 units PRBCs. Her BUN yesterday was 49, today is 49, yesterday CR was 3.0, today is 2.4. We are getting closer to her baseline, will continue her fluids at 100ml/hr. No clinical indications that she is currently in fluid overload. She does get Lasix PO. Will continue her admit today. Will repeat a HGB later today. Will evaluate tomorrow. If her hgb maintains, and her CR corrects, it is possible this patient may be discharged either tomorrow or Monday. Will evaluate tomorrow.
[2020-09-18] MEDS: Oxybutynin 5 MG Tab PO SCH (19:35)
[2020-09-18] MEDS: Acetaminophen 325 MG Tab PO PRN (19:38)
[2020-09-18] MEDS: Metoprolol Succinate 25 MG Tab.ER PO SCH (19:40)
[2020-09-19] MEDS: Sodium Chloride 0.9% 1,000 ML IV SCH (00:10)
[2020-09-19] MEDS: Levothyroxine 125 MCG Tab PO SCH (06:56)
[2020-09-19] MEDS: Furosemide 40 MG Tab PO SCH (07:48)
[2020-09-19] MEDS: Ferrous Sulfate 324 MG Tab.EC PO SCH ×2 (07:48→17:26)
[2020-09-19] MEDS: glipiZIDE 5 MG Tab.ER PO SCH (07:48)
[2020-09-19] MEDS: Sertraline 25 MG Tab PO SCH ×2 (07:48→19:39)
[2020-09-19] MEDS: MEGESTROL ACETATE 40 MG PO SCH ×2 (07:50→21:24)
[2020-09-19] MEDS: Lisinopril 10 MG Tab PO SCH (09:23)
[2020-09-19] MEDS ORDERED: Furosemide 20 MG Tab PO ONE (09:52)
--- NOTE | 2020-09-19 10:02 | PCM.PN ---
- General Info Date of Service: 09/19/20 Functional Status: Reports: Pain Controlled, Urinating - Review of Systems General: Reports: Weakness, Fatigue, Malaise, Appetite (decreased) HEENT: Reports: No Symptoms Pulmonary: Reports: No Symptoms. Denies: Shortness of Breath Cardiovascular: Reports: No Symptoms Gastrointestinal: Reports: No Symptoms Genitourinary: Reports: No Symptoms Musculoskeletal: Reports: No Symptoms Skin: Reports: Other (red LUE forearm) Neurological: Reports: No Symptoms Psychiatric: Reports: No Symptoms - Patient Data Vitals - Most Recent: Last Vital Signs Temp 97.9 F 09/19/20 08:00 Pulse 80 09/19/20 08:00 Resp 18 09/19/20 08:00 BP 136/63 09/19/20 08:00 Pulse Ox 98 09/19/20 08:00 Weight - Most Recent: 289 lb 4.8 oz I&O - Last 24 Hours: Intake & Output 09/18/20 09/19/20 09/19/20 22:59 06:59 14:59 Intake Total 1700 Balance 1700 Lab Results Last 24 Hours: Laboratory Results - last 24 hr 09/17/20 09/19/20 09/19/20 Range/Units 06:05 07:15 07:15 WBC 8.5 (5.0-10.0) 10^3/uL RBC 2.85 L (4.00-5.50) 10^6/uL Hgb 9.3 L (12.0-16.0) g/dL Hct 29.7 L (37.0-47.0) % MCV 104.2 H (82.0-94.0) fL MCH 32.6 H (27.0-32.0) pg MCHC 31.3 L (33.0-38.0) g/dL RDW Coeff of [place]an 18.0 H (11.0-15.0) % Plt Count 131 L (150-400) 10^3/uL Add Manual Diff Yes Neutrophils % (Manual) 62 (35-85) % Lymphocytes % (Manual) 23 (21-55) % Monocytes % (Manual) 10 (2-12) % Eosinophils % (Manual) 5 (0-5) % Absolute Neutrophils 5.27 (1.80-7.00) 10^3/uL Lymphocytes # (Manual) 1.96 (1.00-4.80) 10^3/uL Monocytes # (Manual) 0.85 H (0.00-0.80) 10^3/uL Eosinophils # (Manual) 0.43 (0.00-0.45) 10^3/uL Sodium 140 (136-145) mEq/L Potassium 4.7 (3.5-5.0) mEq/L Chloride 107 H (98-106) mEq/L Carbon Dioxide 25 (21-32) mmol/L BUN 34 H (7-18) mg/dL Creatinine 2.2 H (0.6-1.0) mg/dL Est Cr Clr Drug Dosing 17.50 mL/min Estimated GFR (MDRD) 21 L (>=60) mL/min Glucose 176 H (75-99) mg/dL POC Glucose (75-105) mg/dl Calcium 8.0 L (8.4-10.1) mg/dL Blood Type A POSITIVE Gel Antibody Screen Negative Crossmatch See Detail 09/19/20 Range/Units 07:47 WBC (5.0-10.0) 10^3/uL RBC (4.00-5.50) 10^6/uL Hgb (12.0-16.0) g/dL Hct (37.0-47.0) % MCV (82.0-94.0) fL MCH (27.0-32.0) pg MCHC (33.0-38.0) g/dL RDW Coeff of Ronan (11.0-15.0) % Plt Count (150-400) 10^3/uL Add Manual Diff Neutrophils % (Manual) (35-85) % Lymphocytes % (Manual) (21-55) % Monocytes % (Manual) (2-12) % Eosinophils % (Manual) (0-5) % Absolute Neutrophils (1.80-7.00) 10^3/uL Lymphocytes # (Manual) (1.00-4.80) 10^3/uL Monocytes # (Manual) (0.00-0.80) 10^3/uL Eosinophils # (Manual) (0.00-0.45) 10^3/uL Sodium (136-145) mEq/L Potassium (3.5-5.0) mEq/L Chloride (98-106) mEq/L Carbon Dioxide (21-32) mmol/L BUN (7-18) mg/dL Creatinine (0.6-1.0) mg/dL Est Cr Clr Drug Dosing mL/min Estimated GFR (MDRD) (>=60) mL/min Glucose (75-99) mg/dL POC Glucose 160 H (75-105) mg/dl Calcium (8.4-10.1) mg/dL Blood Type Gel Antibody Screen Crossmatch Robert Results Last 24 Hours: Microbiology 09/17/20 10:00 Urine Culture - Final Urine, Voided NO GROWTH AFTER 2 DAYS Med Orders - Current: Current Medications Acetaminophen (Tylenol) 650 mg PO Q4H PRN PRN Reason: Pain (Mild 1-3)/fever Last Admin: 09/18/20 19:38 Dose: 650 mg Documented by: Ferrous Sulfate (Ferrous Sulfate) 324 mg PO BIDMEALS [facility] Last Admin: 09/19/20 07:48 Dose: 324 mg Documented by: Furosemide (Lasix) 40 mg PO DAILY [facility] Last Admin: 09/19/20 07:48 Dose: 40 mg Documented by: Glipizide (Glucotrol Xl) 5 mg PO DAILY [facility] Last Admin: 09/19/20 07:48 Dose: 5 mg Documented by: Sodium Chloride (Normal Saline) 1,000 mls @ 100 mls/hr IV ASDIRECTED [facility] Stop: 09/19/20 16:00 Last Admin: 09/19/20 00:10 Dose: 100 mls/hr Documented by: Levothyroxine Sodium (Levothyroxine) 125 mcg PO ACBREAKFAST [facility] Last Admin: 09/19/20 06:56 Dose: 125 mcg Documented by: Lisinopril (Prinivil) 10 mg PO DAILY [facility] Last Admin: 09/19/20 09:23 Dose: Not Given Documented by: Magnesium Oxide (Magnesium Oxide) 1,000 mg PO DAILY [facility] Last Admin: 09/19/20 07:48 Dose: 1,000 mg Documented by: Metoprolol Succinate (Toprol Xl) 50 mg PO QPM [facility] Last Admin: 09/18/20 19:40 Dose: Not Given Documented by: Megestrol Acetate [ Megestrol Acetate] 40 Mg Ptom 0 mg PO BID [facility] Last Admin: 09/19/20 07:50 Dose: 80 mg Documented by: Nystatin (Nystop) 0 gm TOP TID PRN PRN Reason: Rash Ondansetron HCl (Zofran Odt) 4 mg PO Q4H PRN PRN Reason: nausea, able to take PO Ondansetron HCl (Zofran) 4 mg IV Q4H PRN PRN Reason: Nausea/Vomiting Last Admin: 09/18/20 08:58 Dose: 4 mg Documented by: Oxybutynin Chloride (Oxybutynin) 5 mg PO BEDTIME [facility] Last Admin: 09/18/20 19:35 Dose: 5 mg Documented by: Sertraline HCl (Zoloft) 50 mg PO BID [facility] Last Admin: 09/19/20 07:48 Dose: 50 mg Documented by: Sodium Chloride (Saline Flush) 10 ml FLUSH ASDIRECTED PRN PRN Reason: Keep Vein Open Temazepam (Restoril) 15 mg PO BEDTIME PRN PRN Reason: Sleep Discontinued Medications Furosemide (Lasix) 20 mg PO ONETIME ONE Stop: 09/19/20 09:53 Megestrol Acetate [ Megestrol Acetate] 40 Mg Ptom 0 mg PO BID [facility] Last Admin: 09/17/20 12:25 Dose: 40 mg Documented by: - Exam General: Alert, Oriented (x3 today), Cooperative, No Acute Distress Neck: Supple, Trachea Midline, No JVD Lungs: Clear to Auscultation, Normal Respiratory Effort Cardiovascular: Regular Rate, Irregular Rhythm (sounds irregular with rate of 80 today. ) GI/Abdominal Exam: Soft, Non-Tender, Other (obese) Back Exam: Normal Inspection Extremities: Normal Inspection, Normal Range of Motion, Non-Tender, No Pedal Edema, Normal Capillary Refill Peripheral Pulses: 2+: Radial (L), Radial (R), Posterior Tibial (L), Posterior Tibial (R), Dorsalis Pedis (L), Dorsalis Pedis (R) Skin: Warm, Dry, Intact, Other (redness, heat, edema to the LUE at IV site.) Neurological: No New Focal Deficit Psy/Mental Status: Alert, Normal Affect, Normal Mood Sepsis Event Note - Evaluation Sepsis Screening Result: No Definite Risk - Focused Exam Vital Signs: Vital Signs Temp Pulse Resp BP Pulse Ox 09/19/20 08:00 97.9 F 80 18 136/63 98 09/19/20 04:00 99.0 F 81 20 149/57 H 97 09/19/20 00:00 98.9 F 86 20 148/73 H 96 - Problem List Review Problem List Initiated/Reviewed/Updated: Yes - My Orders Last 24 Hours: My Active Orders 09/20/20 05:00 BASIC METABOLIC PANEL,BMP [CHEM] DAILY CBC WITH AUTO DIFF [HEME] DAILY - Plan Plan:: 09/18/20 0830am This patient is an 84 year old female that was admitted yesterday due to chronic vaginally bleeding. Patient has a known history of vaginal bleeding, that needs surgery to correct the problem, but the patient has refused surgery. The patient reports that she is 84 years old and does not want any surgeries or anything invasive. She reports that she will take medications and blood. She was prescribed Megestrol 40mg BID, but it is unknown if she was taking these at home, as pharmacy reported she has had a refill available for black pickler for a long time. She was able to bring some of these pills from home. I am unsure if she was taking, or taking as prescribed, patient does not know either. Femi Caceres spoke to HARNESS INSPECTOR yesterday, instructed to increase her medication to 80mg BID. This was ordered. Yesterday her hgb was 5.2, transfused 2 units PRBCs, repeat was 7.3 hgb. This morning the hgb remains the same at 7.3. However, patient today continues to have active bleeding. Her medication was increased to Megestrol 80mg BID. Today, she is symptomatic. She reports she generally does not feel very well, she is generally weak, nauseated. Her mucosa is pallor, her BP is lower than her baseline. Her HTN medication has been held. Due to her active bleeding, and symptomatic, I will transfuse an additional 2 units PRBCs. Her BUN yesterday was 49, today is 49, yesterday CR was 3.0, today is 2.4. We are getting closer to her baseline, will continue her fluids at 100ml/hr. No clinical indications that she is currently in fluid overload. She does get Lasix PO. Will continue her admit today. Will repeat a HGB later today. Will evaluate tomorrow. If her hgb maintains, and her CR corrects, it is possible this patient may be discharged either tomorrow or Monday. Will evaluate tomorrow. 09/19/20 0900am This patient is sitting up in the chair today. Her hgb today is much improved to 9.3. Her CR today is 2.2, and BUN is 34, improved since yesterday as well. The patient today reports that she still feels generally weak. Upon exam, her HR sounds irregular, but rate controlled at 80, EKG was ordered that shows a-fib rate 86. I do not see documented history of a-fib for this patient. She is currently prescribed Metoprolol but this was held in the evening due to perimeters. I have asked RN to give the medication to the patient now. The rate is controlled at 80. The patient denies shortness of breath or chest pain. I also gave the patient an additional Lasix 20mg PO this morning due to her now getting 4 units of blood and fluids. At this time, she does not appear to be fluid overloaded. The patient also left forearm had an IV, this was just removed this morning due to redness. The patient has redness, edema, heat at the site of the left forearm. The IV was removed, and warm compress applied. Phlebitis grade 2. At this time, will try compresses and IV removal, hold on abx. Will evaluate this tomorrow. I discussed with the patient about her possibility of going home in a couple of days vs going back to the [facility]. Her son reported to the RN that he found several of the patients pills in the recliner at home. I asked the patient if she wanted to go home or to the [facility]. She states "I would like to go whever is best for me." I then asked the patient who was taking care of her at home. She responded "my grandson." I asked the patient if she felt like her grandson was taking good care of her, or if she felt like he could continue to take care of her. She then responded "no." I asked her if she would be willing to go to a [facility]. She responded, " yes, I will go back to the [facility]." The plan now, will be swing the patient tomorrow and have sewage disposal worker evaluate patient tomorrow for [facility] admit.
[2020-09-19] MEDS: Metoprolol Succinate 25 MG Tab.ER PO SCH ×2 (10:11→19:02)
[2020-09-19] MEDS: Acetaminophen 325 MG Tab PO PRN (19:39)
[2020-09-19] MEDS: Oxybutynin 5 MG Tab PO SCH (19:39)
[2020-09-20] MEDS: Acetaminophen 325 MG Tab PO PRN (04:49)
[2020-09-20] MEDS: Sertraline 25 MG Tab PO SCH (07:33)
[2020-09-20] MEDS: Levothyroxine 125 MCG Tab PO SCH (07:33)
[2020-09-20] MEDS: glipiZIDE 5 MG Tab.ER PO SCH (07:34)
[2020-09-20] MEDS: MEGESTROL ACETATE 40 MG PO SCH (07:34)
[2020-09-20] MEDS: Furosemide 40 MG Tab PO SCH (07:34)
[2020-09-20] MEDS: Ferrous Sulfate 324 MG Tab.EC PO SCH (07:34)
[2020-09-20 07:46] VITALS: PULSE 74
[2020-09-20] MEDS ORDERED: Furosemide 40 MG/4 ML VIAL IVPUSH ONE (10:54)
[2020-09-20] MEDS ORDERED: Furosemide 20 MG/2 ML VIAL IVPUSH ONE (10:59)
[2020-09-20 11:11] VITALS: BP 138/45
[2020-09-20] MEDS: Lisinopril 10 MG Tab PO SCH (11:11)
--- NOTE | 2020-09-20 11:12 | PCM.DCSUM1 ---
Discharge Summary - Hospital Course HPI Initial Comments: 09/20/20 1030am Patient was admitted for vaginal bleeding that required blood transfusions. Patient lives at home with her grandson who she thinks is unable to care for her. Patient requires one person assist to get up from the chair to get to and from the bathroom. Patient hgb has been stable to 9.1 today. Her CR is her baseline at 2.0 now today. The patient phlebitis to the Left forearm has decreased in size and is not as hot to touch after doing warm compresses and removal of IV. At this time, will not start abx, no fever, no elevation of wbc. I did order an US of the LUE, that shows NO DVT. The patient today does have some bilateral base crackles and increase in BLE edema +1. Consistent with fluid overload. As, she did get 4 units of PRBCs and fluids to correct her renal insufficiency as well which have both currently been corrected at this time. I will give her an additional 20mg IV Lasix. RN has also been holding her Lisinopril due to her BP being low, today she is systolic 138, instructed to give. Discussed with the patient doing a scheduled echocardiogram, however the patient reports that she does not want may things done. She is okay with getting medications. She is alert and oriented. Discussed patient go to a fci, she is okay with this. The patient today getting up to the bathroom is short of breath. Today, will swing the patient for assistance and strengthening. The plan is to find fci placement for the patient starting tomorrow with social security assessor. Diagnosis: Stroke: No Modified [place] Scale: No Symptoms at All Modified [place] Scale Score: 0 - Discharge Data Discharge Date: 09/20/20 Discharge Disposition: DC/Tfer W/I Hosp To [facility] Condition: Fair - Referral to Home Health Primary Care Physician: Jose Caceres PA-C - Discharge Diagnosis/Problem(s) (1) Phlebitis after infusion SNOMED Code(s): 703945536 ICD Code: T80.1XXA - VASCULAR COMP FOL INFUSN, TRANFS AND THERAPUTC INJECT, INIT; I80.9 - PHLEBITIS AND THROMBOPHLEBITIS OF UNSPECIFIED SITE Status: Acute Current Visit: Yes Qualifiers: Encounter type: initial encounter Qualified Code(s): T80.1XXA - Vascular complications following infusion, transfusion and therapeutic injection, initial encounter; I80.9 - Phlebitis and thrombophlebitis of unspecified site (2) Congestive heart failure (CHF) SNOMED Code(s): 02651736 ICD Code: I50.9 - HEART FAILURE, UNSPECIFIED Status: Acute Current Visit: Yes Qualifiers: Heart failure type: unspecified Heart failure chronicity: acute on chronic Qualified Code(s): I50.9 - Heart failure, unspecified (3) Dehydration symptoms SNOMED Code(s): 429093165 ICD Code: R63.8 - OTHER SYMPTOMS AND SIGNS CONCERNING FOOD AND FLUID INTAKE Status: Acute Priority: High Current Visit: Yes - Patient Instructions Diet: Heart Healthy Diet, Low Sodium Activity: As Tolerated Notify Provider of: Fever, Increased Pain, Swelling and Redness, Nausea and/or Vomiting - Discharge Plan *PRESCRIPTION DRUG MONITORING PROGRAM REVIEWED*: No *COPY OF PRESCRIPTION DRUG MONITORING REPORT IN PATIENT GAGE: No Home Medications: Home Meds Furosemide [Lasix] 40 mg PO DAILY 05/11/15 [History] Levothyroxine 125 mcg PO DAILY 05/11/15 [History] Quinapril [Accupril] 20 mg PO DAILY 05/11/15 [History] Sertraline [Zoloft] 50 mg PO BID 05/11/15 [History] Metoprolol Succinate 50 mg PO QPM 12/04/18 [History] Nystatin 1 applic TOP TID PRN 12/04/18 [History] glipiZIDE [Glipizide ER] 5 mg PO DAILY 09/03/19 [History] Apixaban [Eliquis] 2.5 mg PO BID #60 tablet 10/30/19 [Rx] Ferrous Sulfate 324 mg PO BIDMEALS #60 tab.ec 10/30/19 [Rx] Megestrol Acetate 40 mg PO BID 11/02/19 [History] Magnesium Oxide [Magnesium] 1,000 mg PO DAILY 11/03/19 [Rx] Oxybutynin 5 mg PO BEDTIME 09/17/20 [History] Oxygen Therapy Mode: Nasal Cannula Forms: ED Department Discharge Referrals: Jose Caceres PA-C [Primary Care Provider] - - Discharge Summary/Plan Comment DC Time >30 min.: No - General Info Date of Service: 09/20/20 Functional Status: Reports: Pain Controlled, Tolerating Diet, Ambulating (with walker and assistance), Urinating - Review of Systems General: Reports: Weakness, Fatigue. Denies: Fever HEENT: Reports: No Symptoms Pulmonary: Reports: Shortness of Breath. Denies: Pleuritic Chest Pain, Cough, Sputum Cardiovascular: Reports: Dyspnea on Exertion, Edema. Denies: Chest Pain, Palpitations, Lightheadedness Gastrointestinal: Reports: No Symptoms Genitourinary: Reports: No Symptoms Musculoskeletal: Reports: No Symptoms Skin: Reports: Other (LUE redness) Neurological: Reports: No Symptoms Psychiatric: Reports: No Symptoms - Patient Data Vitals - Most Recent: Last Vital Signs Temp 98.2 F 09/20/20 07:45 Pulse 74 09/20/20 07:45 Resp 18 09/20/20 07:45 BP 137/45 L 09/20/20 07:45 Pulse Ox 97 09/20/20 07:45 Weight - Most Recent: 289 lb 4.8 oz Lab Results - Last 24 hrs: Laboratory Results - last 24 hr 09/20/20 09/20/20 09/20/20 Range/Units 07:18 07:18 07:32 WBC 8.6 (5.0-10.0) 10^3/uL RBC 2.77 L (4.00-5.50) 10^6/uL Hgb 9.1 L (12.0-16.0) g/dL Hct 29.3 L (37.0-47.0) % MCV 105.8 H (82.0-94.0) fL MCH 32.9 H (27.0-32.0) pg MCHC 31.1 L (33.0-38.0) g/dL RDW Coeff of Ronan 17.3 H (11.0-15.0) % Plt Count 133 L (150-400) 10^3/uL Add Manual Diff Yes Neutrophils % (Manual) 61 (35-85) % Lymphocytes % (Manual) 23 (21-55) % Monocytes % (Manual) 10 (2-12) % Eosinophils % (Manual) 6 H (0-5) % Absolute Neutrophils 5.25 (1.80-7.00) 10^3/uL Lymphocytes # (Manual) 1.98 (1.00-4.80) 10^3/uL Monocytes # (Manual) 0.86 H (0.00-0.80) 10^3/uL Eosinophils # (Manual) 0.52 H (0.00-0.45) 10^3/uL Nucleated RBCs 2 (0-5) /100WBC Sodium 140 (136-145) mEq/L Potassium 4.6 (3.5-5.0) mEq/L Chloride 107 H (98-106) mEq/L Carbon Dioxide 24 (21-32) mmol/L BUN 29 H (7-18) mg/dL Creatinine 2.0 H (0.6-1.0) mg/dL Est Cr Clr Drug Dosing 19.25 mL/min Estimated GFR (MDRD) 24 L (>=60) mL/min Glucose 266 H D (75-99) mg/dL POC Glucose 275 H (75-105) mg/dl Calcium 8.0 L (8.4-10.1) mg/dL PATRICIO Results - Last 24 hrs: Microbiology 09/17/20 10:00 Urine Culture - Final Urine, Voided NO GROWTH AFTER 2 DAYS Med Orders - Current: Current Medications Acetaminophen (Tylenol) 650 mg PO Q4H PRN PRN Reason: Pain (Mild 1-3)/fever Last Admin: 09/20/20 04:49 Dose: 650 mg Documented by: Ferrous Sulfate (Ferrous Sulfate) 324 mg PO BIDMEALS [facility] Last Admin: 09/20/20 07:34 Dose: 324 mg Documented by: Furosemide (Lasix) 40 mg PO DAILY [facility] Last Admin: 09/20/20 07:34 Dose: 40 mg Documented by: Glipizide (Glucotrol Xl) 5 mg PO DAILY [facility] Last Admin: 09/20/20 07:34 Dose: 5 mg Documented by: Levothyroxine Sodium (Levothyroxine) 125 mcg PO ACBREAKFAST [facility] Last Admin: 09/20/20 07:33 Dose: 125 mcg Documented by: Lisinopril (Prinivil) 10 mg PO DAILY [facility] Last Admin: 09/19/20 09:23 Dose: Not Given Documented by: Magnesium Oxide (Magnesium Oxide) 1,000 mg PO DAILY [facility] Last Admin: 09/20/20 07:34 Dose: 1,000 mg Documented by: Metoprolol Succinate (Toprol Xl) 50 mg PO QPM [facility] Last Admin: 09/19/20 19:02 Dose: Not Given Documented by: Megestrol Acetate [ Megestrol Acetate] 40 Mg Ptom 0 mg PO BID [facility] Last Admin: 09/20/20 07:34 Dose: 80 mg Documented by: Nystatin (Nystop) 0 gm TOP TID PRN PRN Reason: Rash Ondansetron HCl (Zofran Odt) 4 mg PO Q4H PRN PRN Reason: nausea, able to take PO Ondansetron HCl (Zofran) 4 mg IV Q4H PRN PRN Reason: Nausea/Vomiting Last Admin: 09/18/20 08:58 Dose: 4 mg Documented by: Oxybutynin Chloride (Oxybutynin) 5 mg PO BEDTIME [facility] Last Admin: 09/19/20 19:39 Dose: 5 mg Documented by: Sertraline HCl (Zoloft) 50 mg PO BID [facility] Last Admin: 09/20/20 07:33 Dose: 50 mg Documented by: Sodium Chloride (Saline Flush) 10 ml FLUSH ASDIRECTED PRN PRN Reason: Keep Vein Open Temazepam (Restoril) 15 mg PO BEDTIME PRN PRN Reason: Sleep Discontinued Medications Furosemide (Lasix) 20 mg PO ONETIME ONE Stop: 09/19/20 09:53 Last Admin: 09/19/20 10:12 Dose: 20 mg Documented by: Furosemide (Lasix) 40 mg IVPUSH ONETIME ONE Stop: 09/20/20 10:55 Furosemide (Lasix) 20 mg IVPUSH ONETIME ONE Stop: 09/20/20 11:00 Sodium Chloride (Normal Saline) 1,000 mls @ 100 mls/hr IV ASDIRECTED [facility] Stop: 09/19/20 16:00 Last Admin: 09/19/20 00:10 Dose: 100 mls/hr Documented by: Megestrol Acetate [ Megestrol Acetate] 40 Mg Ptom 0 mg PO BID [facility] Last Admin: 09/17/20 12:25 Dose: 40 mg Documented by: - Exam General: Reports: Alert, Oriented, Cooperative Neck: Reports: Supple, Trachea Midline, No JVD Lungs: Reports: Crackles (bilateral bases) Cardiovascular: Reports: Regular Rate, Regular Rhythm GI/Abdominal Exam: Normal Bowel Sounds, Non-Tender Back Exam: Reports: Normal Inspection Extremities: Normal Range of Motion, Non-Tender, Normal Capillary Refill, Pedal Edema (+1 BLE) Skin: Reports: Warm, Dry, Intact, Other (mild errythema LUE, improving, no longer hot to touch. ) Psy/Mental Status: Reports: Alert, Normal Affect, Normal Mood
== END 2020-09-20 11:24 | disposition swing bed (61) | DRG 760 ==
LOC: CC.ED 05:14 → CC.MS 06:37
PROVIDERS: ADMIT Physician Assistant Medical; ATTEND Family Medicine
PROC: 30233N1 Transfusion of Nonautologous Red Blood Cells into Peripheral Vein, Percutaneous Approach (ICD-10-PCS; principal; 2020-09-17)
DX: N93.9 Abnormal uterine and vaginal bleeding, unspecified (principal); T80.1XXA Vascular complications following infusion, transfusion and therapeutic injection, initial encounter; R63.8 Other symptoms and signs concerning food and fluid intake; N17.9 Acute kidney failure, unspecified; I48.92 Unspecified atrial flutter; I10 Essential (primary) hypertension; I80.9 Phlebitis and thrombophlebitis of unspecified site; I50.9 Heart failure, unspecified; E03.9 Hypothyroidism, unspecified; Z66 Do not resuscitate; Z20.828 Contact with and (suspected) exposure to other viral communicable diseases; Z51.5 Encounter for palliative care; K21.9 Gastro-esophageal reflux disease without esophagitis; I11.0 Hypertensive heart disease with heart failure; Z96.649 Presence of unspecified artificial hip joint; E11.9 Type 2 diabetes mellitus without complications; Z96.659 Presence of unspecified artificial knee joint; E86.0 Dehydration; Z86.711 Personal history of pulmonary embolism; Z79.890 Hormone replacement therapy; Z88.5 Allergy status to narcotic agent; Z79.01 Long term (current) use of anticoagulants; Z98.49 Cataract extraction status, unspecified eye; Z90.49 Acquired absence of other specified parts of digestive tract; R41.0 Disorientation, unspecified; R32 Unspecified urinary incontinence; M19.90 Unspecified osteoarthritis, unspecified site; Z88.8 Allergy status to other drugs, medicaments and biological substances; Z79.84 Long term (current) use of oral hypoglycemic drugs; Z79.899 Other long term (current) drug therapy; E20.9 Hypoparathyroidism, unspecified
CPT/HCPCS: 36415; 36430; 80048; 80053; 81001; 82962; 85018; 85025; 85027; 86140; 86850; 86900; 86901; 86920; 86922; 87086; 93005; 93971-LT; 99285; A9270-GY; J1940; J2405; J7030; P9016; U0002

== ENCOUNTER 2020-09-20 11:20 | Inpatient (IN) | payer MEDICARE, OTHER ==
[2020-09-20] MEDS ORDERED: Ondansetron 4 MG Tab.DIS PO PRN (13:27)
[2020-09-20] MEDS ORDERED: Nystatin Topical Powder 15 GM Bottle TOP PRN (13:27)
[2020-09-20] MEDS ORDERED: Ondansetron 4 MG/2 ML SDV IV PRN (13:27)
[2020-09-20] MEDS ORDERED: Sodium Chloride 0.9% 10 ML Syringe FLUSH PRN ×2 (13:27)
[2020-09-20] MEDS ORDERED: Acetaminophen 325 MG Tab PO PRN (13:27)
[2020-09-20] MEDS ORDERED: Temazepam 15 MG Cap PO PRN (13:27)
[2020-09-20] MEDS: Metoprolol Succinate 25 MG Tab.ER PO SCH (19:18)
[2020-09-20] MEDS: Oxybutynin 5 MG Tab PO SCH (19:19)
[2020-09-20] MEDS: Sertraline 25 MG Tab PO SCH (19:19)
[2020-09-20] MEDS: MEGESTROL ACETATE 80 MG PO SCH (19:21)
[2020-09-20] MEDS: Ferrous Sulfate 324 MG Tab.EC PO SCH (19:25)
[2020-09-20] MEDS ORDERED: Oxyquinoline/Emollient 0.3% Oint 1 OZ Canister PRN (21:38)
[2020-09-21] MEDS: Sertraline 25 MG Tab PO SCH ×2 (08:00→19:23)
[2020-09-21] MEDS: Levothyroxine 125 MCG Tab PO SCH (08:00)
[2020-09-21] MEDS: glipiZIDE 5 MG Tab.ER PO SCH (08:00)
[2020-09-21] MEDS: Ferrous Sulfate 324 MG Tab.EC PO SCH ×2 (08:00→17:32)
[2020-09-21] MEDS ORDERED: Lisinopril 10 MG Tab PO SCH (08:00)
[2020-09-21] MEDS: Furosemide 40 MG Tab PO SCH (08:01)
[2020-09-21] MEDS: MEGESTROL ACETATE 80 MG PO SCH ×2 (08:19→20:54)
[2020-09-21] MEDS ORDERED: FLU Vacc QS2020-21 36MOS UP/PF 60 MCG/0.5 ML Syringe IM ONE (14:00)
[2020-09-21] MEDS: Metoprolol Succinate 25 MG Tab.ER PO SCH (19:22)
[2020-09-21] MEDS: Oxybutynin 5 MG Tab PO SCH (19:23)
[2020-09-22] MEDS: Levothyroxine 125 MCG Tab PO SCH (06:51)
[2020-09-22] MEDS: Sertraline 25 MG Tab PO SCH ×2 (07:52→19:37)
[2020-09-22] MEDS: glipiZIDE 5 MG Tab.ER PO SCH (07:52)
[2020-09-22] MEDS: Ferrous Sulfate 324 MG Tab.EC PO SCH ×2 (07:52→17:35)
[2020-09-22] MEDS: Furosemide 40 MG Tab PO SCH (07:52)
[2020-09-22] MEDS: MEGESTROL ACETATE 80 MG PO SCH ×2 (08:15→19:37)
[2020-09-22] MEDS: Lisinopril 5 MG Tab PO SCH (08:20)
[2020-09-22] MEDS: Oxybutynin 5 MG Tab PO SCH (19:37)
[2020-09-22] MEDS ORDERED: Metoprolol Succinate 25 MG Tab.ER PO SCH (20:00)
[2020-09-23 07:40] VITALS: BP 128/41; PULSE 68
[2020-09-23] MEDS: glipiZIDE 5 MG Tab.ER PO SCH (07:41)
[2020-09-23] MEDS: Sertraline 25 MG Tab PO SCH (07:42)
[2020-09-23] MEDS: Levothyroxine 125 MCG Tab PO SCH (07:42)
[2020-09-23] MEDS: Furosemide 40 MG Tab PO SCH (07:43)
[2020-09-23] MEDS: Ferrous Sulfate 324 MG Tab.EC PO SCH (07:43)
[2020-09-23] MEDS: MEGESTROL ACETATE 80 MG PO SCH (07:46)
[2020-09-23] MEDS: Lisinopril 5 MG Tab PO SCH (08:47)
--- NOTE | 2020-09-23 09:10 | PCM.DCSUM1 ---
Discharge Summary - Hospital Course HPI Initial Comments: Josiane is an 84 year old female who presents to ER with complaints of increased vaginal bleeding. Has had issues with this for some time now. Has seen gynecology for this. Endometrial biopsy has been done in the past which was benign. Patient relates chose not to do a hysterectomy because of her age and health conditions and "just gave her a pill". She was started on Megestrol 80mg BID and did well. Was recently decreased to 40mg BID as patient wanted to back off on the dose. She admits she had been doing quite well for some time now until a week ago. Started noting more thin vaginal bleeding with more clots. Upon admission she became very weak in her legs and grandson reports was more confused. Patient was admitted and given 4 units of pRBC's. Hgb is stable at 9.3 today. - Discharge Data Discharge Date: 09/23/20 Discharge Disposition: DC/Tfer to SNF 03 Condition: Fair - Referral to Home Health Primary Care Physician: Jose Caceres PA-C - Discharge Diagnosis/Problem(s) (1) Vaginal bleeding, abnormal SNOMED Code(s): 467187139 ICD Code: N93.9 - ABNORMAL UTERINE AND VAGINAL BLEEDING, UNSPECIFIED Status: Resolved Priority: High Current Visit: No (2) Chronic renal disease SNOMED Code(s): 713761101 ICD Code: N18.9 - CHRONIC KIDNEY DISEASE, UNSPECIFIED Status: Acute Current Visit: Yes (3) Palliative care patient SNOMED Code(s): 298263326, 615056092 ICD Code: Z51.5 - ENCOUNTER FOR PALLIATIVE CARE Status: Acute Current Visit: No (4) Phlebitis after infusion SNOMED Code(s): 209464679 ICD Code: T80.1XXA - VASCULAR COMP FOL INFUSN, TRANFS AND THERAPUTC INJECT, INIT; I80.9 - PHLEBITIS AND THROMBOPHLEBITIS OF UNSPECIFIED SITE Status: Resolved Current Visit: No Qualifiers: Encounter type: initial encounter Qualified Code(s): T80.1XXA - Vascular complications following infusion, transfusion and therapeutic injection, initial encounter; I80.9 - Phlebitis and thrombophlebitis of unspecified site (5) Congestive heart failure (CHF) SNOMED Code(s): 24947366 ICD Code: I50.9 - HEART FAILURE, UNSPECIFIED Status: Acute Current Visit: No Qualifiers: Heart failure chronicity: acute on chronic - Patient Summary/Data Consults: Consultations 09/20/20 13:29 Consult to Physical Therapy [PT Evaluation and Treatment] [CONS] Routine - Patient Instructions Diet: Diabetic Diet - Discharge Plan *PRESCRIPTION DRUG MONITORING PROGRAM REVIEWED*: Not Applicable *COPY OF PRESCRIPTION DRUG MONITORING REPORT IN PATIENT GAGE: Not Applicable Prescriptions/Med Rec: Metoprolol Succinate [Toprol XL] 25 mg PO BEDTIME #30 tab.er Home Medications: Home Meds Furosemide [Lasix] 40 mg PO DAILY 05/11/15 [History] Levothyroxine 125 mcg PO DAILY 05/11/15 [History] Sertraline [Zoloft] 50 mg PO BID 05/11/15 [History] Nystatin 1 applic TOP TID PRN 12/04/18 [History] glipiZIDE [Glipizide ER] 5 mg PO DAILY 09/03/19 [History] Apixaban [Eliquis] 2.5 mg PO BID #60 tablet 10/30/19 [Rx] Ferrous Sulfate 324 mg PO BIDMEALS #60 tab.ec 10/30/19 [Rx] Magnesium Oxide [Magnesium] 1,000 mg PO DAILY 11/03/19 [Rx] Oxybutynin 5 mg PO BEDTIME 09/17/20 [History] Megestrol Acetate [Megestrol Acetate] 80 mg PO BID #0 09/23/20 [Rx] Metoprolol Succinate [Toprol XL] 25 mg PO BEDTIME #30 tab.er 09/23/20 [Rx] - Discharge Summary/Plan Comment DC Time >30 min.: Yes Discharge Summary/Plan Comment: Josiane to be transferred to [facility] this morning. Patient's labs are stable with a hgb of 9.3 and Creatinine of 1.9. Discharge instructions completed. Plan for transfer to shelter at 10:00am. - General Info Subjective Update: Josiane is in good spirits today. Ready to be transferred to shelter for assistance as she understands she can not care for herself at this time. No c omplaints. Functional Status: Reports: Pain Controlled - Review of Systems General: Reports: No Symptoms HEENT: Reports: No Symptoms Pulmonary: Reports: Shortness of Breath. Denies: Pleuritic Chest Pain, Wheezing Cardiovascular: Reports: Dyspnea on Exertion. Denies: Edema Gastrointestinal: Reports: No Symptoms Genitourinary: Reports: No Symptoms Musculoskeletal: Reports: No Symptoms Skin: Reports: No Symptoms Neurological: Reports: No Symptoms - Patient Data Vitals - Most Recent: Last Vital Signs Temp 97.6 F 09/23/20 07:39 Pulse 68 09/23/20 07:39 Resp 20 09/23/20 07:39 BP 128/41 L 09/23/20 08:47 Pulse Ox 95 09/23/20 07:39 Weight - Most Recent: 289 lb Lab Results - Last 24 hrs: Laboratory Results - last 24 hr 09/23/20 09/23/20 Range/Units 06:55 06:55 WBC 7.6 (5.0-10.0) 10^3/uL RBC 2.92 L (4.00-5.50) 10^6/uL Hgb 9.3 L (12.0-16.0) g/dL Hct 31.1 L (37.0-47.0) % MCV 106.5 H (82.0-94.0) fL MCH 31.8 (27.0-32.0) pg MCHC 29.9 L (33.0-38.0) g/dL RDW Coeff of Ronan 15.7 H (11.0-15.0) % Plt Count 141 L (150-400) 10^3/uL Neut % (Auto) 60.5 (35-85) % Lymph % (Auto) 21.3 (10-55) % [place] % (Auto) 12.1 (0-16) % Eos % (Auto) 5.3 H (0-5) % Baso % (Auto) 0.8 (0-3) % Neut # (Auto) 4.60 (1.80-7.00) 10^3/uL Lymph # (Auto) 1.62 (1.00-4.80) 10^3/uL [place] # (Auto) 0.92 H (0.00-0.80) 10^3/uL Eos # (Auto) 0.40 (0.00-0.45) 10^3/uL Baso # (Auto) 0.06 10^3/uL Sodium 139 (136-145) mEq/L Potassium 5.3 H (3.5-5.0) mEq/L Chloride 106 (98-106) mEq/L Carbon Dioxide 27 (21-32) mmol/L BUN 33 H (7-18) mg/dL Creatinine 1.9 H (0.6-1.0) mg/dL Est Cr Clr Drug Dosing 20.26 mL/min Estimated GFR (MDRD) 25 L (>=60) mL/min Glucose 156 H (75-99) mg/dL Calcium 8.5 (8.4-10.1) mg/dL Med Orders - Current: Current Medications Acetaminophen (Tylenol) 650 mg PO Q4H PRN PRN Reason: Pain (Mild 1-3)/fever Ferrous Sulfate (Ferrous Sulfate) 324 mg PO BIDMEALS [facility] Last Admin: 09/23/20 07:43 Dose: 324 mg Documented by: Furosemide (Lasix) 40 mg PO DAILY [facility] Last Admin: 09/23/20 07:43 Dose: 40 mg Documented by: Glipizide (Glucotrol Xl) 5 mg PO DAILY [facility] Last Admin: 09/23/20 07:41 Dose: 5 mg Documented by: Levothyroxine Sodium (Levothyroxine) 125 mcg PO ACBREAKFAST [facility] Last Admin: 09/23/20 07:42 Dose: 125 mcg Documented by: Lisinopril (Prinivil) 5 mg PO DAILY [facility] Last Admin: 09/23/20 08:47 Dose: Not Given Documented by: Magnesium Oxide (Magnesium Oxide) 1,000 mg PO DAILY [facility] Last Admin: 09/23/20 07:40 Dose: 1,000 mg Documented by: Metoprolol Succinate (Toprol Xl) 25 mg PO BEDTIME [facility] Last Admin: 09/22/20 19:37 Dose: 25 mg Documented by: Megestrol Acetate [ Megestrol Acetate] 80 MgOwn Med 80 mg PO BID [facility] Last Admin: 09/23/20 07:46 Dose: 80 mg Documented by: Nystatin (Nystop) 0 gm TOP TID PRN PRN Reason: Rash Ondansetron HCl (Zofran Odt) 4 mg PO Q4H PRN PRN Reason: nausea, able to take PO Ondansetron HCl (Zofran) 4 mg IV Q4H PRN PRN Reason: Nausea/Vomiting Oxybutynin Chloride (Oxybutynin) 5 mg PO BEDTIME [facility] Last Admin: 09/22/20 19:37 Dose: 5 mg Documented by: Oxyquinoline Sulfate ([place] Oint) 1 oz .XX ASDIRECTED PRN PRN Reason: Other Last Admin: 09/20/20 22:25 Dose: 1 applic Documented by: Sertraline HCl (Zoloft) 50 mg PO BID [facility] Last Admin: 09/23/20 07:42 Dose: 50 mg Documented by: Sodium Chloride (Saline Flush) 10 ml FLUSH ASDIRECTED PRN PRN Reason: Keep Vein Open Sodium Chloride (Saline Flush) 10 ml FLUSH ASDIRECTED PRN PRN Reason: Keep Vein Open Temazepam (Restoril) 15 mg PO BEDTIME PRN PRN Reason: Sleep Discontinued Medications Influenza Virus Vaccine (Pharmacy To Dose - Influenza Vaccine) 1 each IM ONETIME ONE Stop: 09/21/20 14:01 Influenza Virus Vaccine (Afluria Quad 2020-21 (3yr Up)) 60 mcg IM .ONCE ONE Stop: 09/21/20 14:01 Last Admin: 09/21/20 13:48 Dose: 60 mcg Documented by: Lisinopril (Prinivil) 10 mg PO DAILY [facility] Last Admin: 09/21/20 08:01 Dose: 10 mg Documented by: Metoprolol Succinate (Toprol Xl) 50 mg PO QPM [facility] Last Admin: 09/21/20 19:22 Dose: 50 mg Documented by: - Exam General: Reports: Alert, Oriented, Cooperative, No Acute Distress Lungs: Reports: Normal Respiratory Effort. Denies: Crackles, Rales, Rhonchi Cardiovascular: Reports: Regular Rate, Regular Rhythm, No Murmurs GI/Abdominal Exam: Normal Bowel Sounds, Soft, No Distention Extremities: Normal Inspection, Pedal Edema (2+ ) Skin: Reports: Warm, Dry, Intact Neurological: Reports: No New Focal Deficit Psy/Mental Status: Reports: Alert, Normal Affect, Normal Mood
== END 2020-09-23 10:15 | DRG 948 ==
LOC: CC.MS 11:20 → UNDOADMIN 11:25
PROVIDERS: ADMIT Nurse Practitioner; ATTEND Family Medicine
DX: R53.1 Weakness (principal); T80.1XXA Vascular complications following infusion, transfusion and therapeutic injection, initial encounter; N93.9 Abnormal uterine and vaginal bleeding, unspecified; Z51.5 Encounter for palliative care; I80.9 Phlebitis and thrombophlebitis of unspecified site; I50.9 Heart failure, unspecified
CPT/HCPCS: 36415; 80048; 85025; 90686; 97110-GP; 97161-GP; A9270-GY; G0008